=== PATIENT | female | born 1985 | race Caucasian/White ===

== ENCOUNTER 2017-06-24 22:30 | Outpatient (CLI) | payer MEDICAID, SELFPAY ==
[2017-06-24 22:44] VITALS: BMI 31.4
[2017-06-24 22:50] LABS: Microscopic, Urine URINE MICROSCOPIC (MICROSCOPIC)
[2017-06-24 22:55] LABS: Appearance,Urine SL CLOUDY (Clear); Bilirubin,Urine Negative (Negative); Blood, Urine Negative (Negative); Color,Urine YELLOW (Yellow); Glucose,Urine (UA) TRACE (Negative); Ketones,Urine TRACE (Negative); Leukocyte Esterase,Urine Negative (Negative); Nitrate,Urine Negative (Negative); Protein,Urine 1+ (Negative); Specific Gravity, Urine >= 1.030 (1.005-1.030); Urobilinogen,Urine 0.2 EU/dl (0.2)
[2017-06-24 22:58] VITALS: BP 133/73; PULSE 130; RESP 103; TEMP 36.7; O2SAT 97; BMI 31.4
[2017-06-24 23:07] LABS: Amorphous Sediment,Urine 1+ /lpf; Mucus,Urine 4+ /lpf; Squamous Epithelial Cell,Urine 20-50 #/hpf (0-5)
[2017-06-24 23:20] LABS: Amphetamine/Metha Screen,Urine Negative ng/mL (<1000); Barbiturates Screen,Urine Negative ng/mL (<200); Benzodiazepines Screen,Urine Negative ng/mL (200); Cannabinoid Screen,Urine Positive ng/mL (<50); Cocaine Screen,Urine Negative ng/g (<300); Methadone Screen,Urine Negative ng/mL (<300); Opiate Screen,Urine Negative ng/mL (<300); Phencyclidine Screen,Urine Negative ng/mL (<25)
== END 2017-06-24 23:49 | disposition home or self-care (01) ==
LOC: OBOUT 22:32 → OB 22:32
PROVIDERS: PCP Obstetrics & Gynecology; Visit Provider Obstetrics & Gynecology
DX: O26.92 Pregnancy related conditions, unspecified, second trimester (principal); Z3A.25 25 weeks gestation of pregnancy; M54.5 Low back pain
CPT/HCPCS: 59025; 80305; 81001

== ENCOUNTER 2017-09-08 02:19 | Outpatient (CLI) | payer SELFPAY ==
[2017-09-08 02:29] VITALS: BMI 31.3
[2017-09-08 02:33] VITALS: BMI 31.2
[2017-09-08 02:34] VITALS: BP 118/71; PULSE 103; RESP 18; TEMP 37.1; O2SAT 98; BMI 31.2
[2017-09-08 02:38] LABS: Microscopic, Urine URINE MICROSCOPIC (MICROSCOPIC)
[2017-09-08 02:40] LABS: Appearance,Urine CLEAR (Clear); Bilirubin,Urine Negative (Negative); Blood, Urine TRACE-I (Negative); Color,Urine YELLOW (Yellow); Glucose,Urine (UA) Negative (Negative); Ketones,Urine Negative (Negative); Leukocyte Esterase,Urine Negative (Negative); Nitrate,Urine Negative (Negative); Protein,Urine Negative (Negative); Specific Gravity, Urine 1.015 (1.005-1.030); Urobilinogen,Urine 0.2 EU/dl (0.2)
[2017-09-08 02:44] LABS: RBC,Urine Occasional #/hpf (0-3)
[2017-09-08 02:47] LABS: Amphetamine/Metha Screen,Urine Negative ng/mL (<1000); Barbiturates Screen,Urine Negative ng/mL (<200); Benzodiazepines Screen,Urine Negative ng/mL (200); Cannabinoid Screen,Urine Negative ng/mL (<50); Cocaine Screen,Urine Negative ng/g (<300); Methadone Screen,Urine Negative ng/mL (<300); Opiate Screen,Urine Negative ng/mL (<300); Phencyclidine Screen,Urine Negative ng/mL (<25)
== END 2017-09-08 03:25 | disposition home or self-care (01) ==
LOC: OBOUT 02:22 → OB 02:27
PROVIDERS: Visit Provider Obstetrics & Gynecology
DX: O26.893 Other specified pregnancy related conditions, third trimester (principal); Z3A.36 36 weeks gestation of pregnancy; R10.84 Generalized abdominal pain
CPT/HCPCS: 59025; 80305; 81001

== ENCOUNTER 2017-09-11 18:37 | Observation (INO) ==
[2017-09-11 19:04] VITALS: BP 135/75
[2017-09-11 19:25] LABS: Microscopic, Urine URINE MICROSCOPIC (MICROSCOPIC)
[2017-09-11 19:26] LABS: Appearance,Urine CLEAR (Clear); Bilirubin,Urine Negative (Negative); Blood, Urine Negative (Negative); Color,Urine YELLOW (Yellow); Glucose,Urine (UA) Negative (Negative); Ketones,Urine 3+ (Negative); Leukocyte Esterase,Urine Negative (Negative); Protein,Urine Negative (Negative); Urobilinogen,Urine 0.2 EU/dl (0.2)
[2017-09-11 19:32] LABS: Bacteria,Urine 1+ /lpf; RBC,Urine Occasional #/hpf (0-3)
[2017-09-11 20:17] LABS: Amphetamine/Metha Screen,Urine Negative ng/mL (<1000); Barbiturates Screen,Urine Negative ng/mL (<200); Benzodiazepines Screen,Urine Negative ng/mL (200); Cannabinoid Screen,Urine Negative ng/mL (<50); Cocaine Screen,Urine Negative ng/g (<300); Methadone Screen,Urine Negative ng/mL (<300); Opiate Screen,Urine Negative ng/mL (<300); Phencyclidine Screen,Urine Negative ng/mL (<25)
[2017-09-12 00:09] LABS: Basophils % 0.1 % (0.1-2.0); Eosinophils # 0.1 K/mm3 (0.0-0.4); Eosinophils % 0.4 % (0.1-12.0); Hematocrit 33.6 % (37.0-47.0); Hemoglobin 11.4 g/dL (12.2-16.2); Lymphocytes # 2.9 K/mm3 (0.7-4.5); Lymphocytes % 19.5 K/mm3 (10-50); Mean Corpuscular HGB Conc 33.8 g/dL (31.8-35.4); Mean Corpuscular Hemoglobin 30.3 pg (27.0-31.2); Mean Corpuscular Volume 89.5 fl (81-99); Mean Platelet Volume 11.5 fl (7.4-10.4); Monocytes # 0.6 K/mm3 (0.1-1.0); Neutrophils # 11.2 K/mm3 (1.8-7.8); Neutrophils % 75.9 % (37.0-80.0); Platelet Count 241 K/mm3 (142-424); Red Blood Count 3.76 M/mm3 (4.20-5.40); Red Cell Distribution Width 13.7 % (11.5-17.5); White Blood Count 14.8 K/mm3 (4.8-10.8)
[2017-09-12 10:47] LABS: Basophils % 0.2 % (0.1-2.0); Eosinophils # 0.2 K/mm3 (0.0-0.4); Eosinophils % 1.3 % (0.1-12.0); Hematocrit 33.7 % (37.0-47.0); Hemoglobin 11.1 g/dL (12.2-16.2); Lymphocytes # 2.5 K/mm3 (0.7-4.5); Lymphocytes % 20.3 K/mm3 (10-50); Mean Corpuscular HGB Conc 33.1 g/dL (31.8-35.4); Mean Corpuscular Hemoglobin 29.9 pg (27.0-31.2); Mean Corpuscular Volume 90.3 fl (81-99); Mean Platelet Volume 10.7 fl (7.4-10.4); Monocytes # 0.6 K/mm3 (0.1-1.0); Monocytes % 5.1 % (1.7-9.3); Neutrophils % 73.1 % (37.0-80.0); Platelet Count 253 K/mm3 (142-424); Red Blood Count 3.73 M/mm3 (4.20-5.40); Red Cell Distribution Width 13.9 % (11.5-17.5); White Blood Count 12.3 K/mm3 (4.8-10.8)
[2017-09-13 06:38] LABS: Hepatitis B Surface Antigen Negative (Negative)
[2017-09-13 06:39] LABS: HIV Screen 4th Generation wRfx Non Reactive (Non Reactive)
[2017-09-14 06:10] LABS: Rapid Plasma Reagin Ab Titer Non Reactive (NonRea<1:1)
== END 2017-09-12 10:25 | disposition home or self-care (01) ==
LOC: OB 18:37 → OBOUT 18:37 → OB 18:41
PROVIDERS: ADMIT Obstetrics & Gynecology; ATTEND Obstetrics & Gynecology
CPT/HCPCS: 36415; 59025; 80048; 80305; 81001; 85025; 86592; 86703; 86762; 86850; 87340; 87380; 96360; 96361; 96372; G0378; G0432; J0595

== ENCOUNTER 2017-09-21 10:17 | Outpatient (CLI) | payer MEDICAID, SELFPAY ==
[2017-09-21 10:35] VITALS: BP 125/77; PULSE 88; RESP 18; TEMP 36.7; O2SAT 100; BMI 31.2
[2017-09-21 11:23] LABS: Microscopic, Urine URINE MICROSCOPIC (MICROSCOPIC)
[2017-09-21 11:24] LABS: Appearance,Urine CLEAR (Clear); Bilirubin,Urine Negative (Negative); Blood, Urine Negative (Negative); Color,Urine YELLOW (Yellow); Glucose,Urine (UA) Negative (Negative); Ketones,Urine TRACE (Negative); Leukocyte Esterase,Urine Negative (Negative); Nitrate,Urine Negative (Negative); Protein,Urine Negative (Negative); Urobilinogen,Urine 0.2 EU/dl (0.2)
[2017-09-21 11:31] LABS: Amphetamine/Metha Screen,Urine Negative ng/mL (<1000); Barbiturates Screen,Urine Positive ng/mL (<200); Benzodiazepines Screen,Urine Negative ng/mL (200); Cannabinoid Screen,Urine Negative ng/mL (<50); Cocaine Screen,Urine Negative ng/g (<300); Methadone Screen,Urine Negative ng/mL (<300); Opiate Screen,Urine Negative ng/mL (<300); Phencyclidine Screen,Urine Negative ng/mL (<25)
[2017-09-21 11:35] LABS: Bacteria,Urine Trace /lpf; Squamous Epithelial Cell,Urine 20-50 #/hpf (0-5)
== END 2017-09-21 11:50 | disposition home or self-care (01) ==
LOC: OBOUT 10:19 → OB 10:20
PROVIDERS: Visit Provider Obstetrics & Gynecology
DX: O26.93 Pregnancy related conditions, unspecified, third trimester (principal); Z3A.37 37 weeks gestation of pregnancy; G43.909 Migraine, unspecified, not intractable, without status migrainosus; R03.0 Elevated blood-pressure reading, without diagnosis of hypertension
CPT/HCPCS: 59025; 80305; 81001

== ENCOUNTER 2017-09-23 19:12 | Outpatient (CLI) | payer MEDICAID, SELFPAY ==
[2017-09-23 19:20] VITALS: BMI 31.2
[2017-09-23 19:28] LABS: Microscopic, Urine URINE MICROSCOPIC (MICROSCOPIC)
[2017-09-23 19:29] LABS: Appearance,Urine CLEAR (Clear); Bilirubin,Urine Negative (Negative); Blood, Urine Negative (Negative); Color,Urine YELLOW (Yellow); Glucose,Urine (UA) Negative (Negative); Ketones,Urine Negative (Negative); Leukocyte Esterase,Urine Negative (Negative); Nitrate,Urine Negative (Negative); Protein,Urine Negative (Negative); Specific Gravity, Urine 1.015 (1.005-1.030); Urobilinogen,Urine 0.2 EU/dl (0.2)
[2017-09-23 19:33] VITALS: BP 149/83; PULSE 95; RESP 18; TEMP 36.7; O2SAT 98; BMI 31.2
[2017-09-23 19:33] LABS: Squamous Epithelial Cell,Urine 20-50 #/hpf (0-5); WBC,Urine Occasional #/hpf (0-3)
[2017-09-23 20:07] LABS: Amphetamine/Metha Screen,Urine Negative ng/mL (<1000); Barbiturates Screen,Urine Positive ng/mL (<200); Benzodiazepines Screen,Urine Negative ng/mL (200); Cannabinoid Screen,Urine Negative ng/mL (<50); Cocaine Screen,Urine Negative ng/g (<300); Methadone Screen,Urine Negative ng/mL (<300); Opiate Screen,Urine Negative ng/mL (<300); Phencyclidine Screen,Urine Negative ng/mL (<25)
== END 2017-09-23 20:50 | disposition home or self-care (01) ==
LOC: OBOUT 19:14 → OB 19:15
PROVIDERS: PCP Obstetrics & Gynecology; Visit Provider Nurse Practitioner Obstetrics & Gynecology
DX: Z34.90 Encounter for supervision of normal pregnancy, unspecified, unspecified trimester (principal)
CPT/HCPCS: 59025; 80305; 81001

== ENCOUNTER 2017-09-26 13:09 | Outpatient (CLI) | payer MEDICAID, SELFPAY ==
[2017-09-26 13:26] VITALS: BP 128/90; PULSE 94; RESP 18; TEMP 36.5; O2SAT 98; BMI 28.6; BMI 31.3
[2017-09-26 13:33] LABS: Microscopic, Urine URINE MICROSCOPIC (MICROSCOPIC)
[2017-09-26 13:35] LABS: Appearance,Urine CLOUDY (Clear); Bilirubin,Urine Negative (Negative); Blood, Urine Negative (Negative); Color,Urine YELLOW (Yellow); Glucose,Urine (UA) Negative (Negative); Ketones,Urine Negative (Negative); Leukocyte Esterase,Urine TRACE (Negative); Nitrate,Urine Negative (Negative); Protein,Urine Negative (Negative); Specific Gravity, Urine 1.015 (1.005-1.030); Urobilinogen,Urine 0.2 EU/dl (0.2)
[2017-09-26 13:44] LABS: Bacteria,Urine 4+ /lpf; Mucus,Urine 1+ /lpf
== END 2017-09-26 14:32 | disposition home or self-care (01) ==
LOC: OBOUT 13:10 → OB 13:11
PROVIDERS: Nurse Practitioner Obstetrics & Gynecology; Visit Provider Obstetrics & Gynecology
DX: O26.93 Pregnancy related conditions, unspecified, third trimester (principal); Z3A.38 38 weeks gestation of pregnancy
CPT/HCPCS: 59025; 81001; 87086; 96360; 96367

== ENCOUNTER 2017-09-27 11:55 | Inpatient (IN) ==
[2017-09-27 13:32] LABS: Basophils % 0.3 % (0.1-2.0); Eosinophils # 0.2 K/mm3 (0.0-0.4); Eosinophils % 1.4 % (0.1-12.0); Hematocrit 39.9 % (37.0-47.0); Hemoglobin 13.2 g/dL (12.2-16.2); Lymphocytes # 2.8 K/mm3 (0.7-4.5); Lymphocytes % 22.8 K/mm3 (10-50); Mean Corpuscular HGB Conc 33.2 g/dL (31.8-35.4); Mean Corpuscular Hemoglobin 29.8 pg (27.0-31.2); Mean Corpuscular Volume 89.9 fl (81-99); Mean Platelet Volume 11.1 fl (7.4-10.4); Monocytes # 0.6 K/mm3 (0.1-1.0); Monocytes % 4.7 % (1.7-9.3); Neutrophils # 8.6 K/mm3 (1.8-7.8); Neutrophils % 70.9 % (37.0-80.0); Platelet Count 250 K/mm3 (142-424); Red Blood Count 4.43 M/mm3 (4.20-5.40); Red Cell Distribution Width 13.3 % (11.5-17.5); White Blood Count 12.1 K/mm3 (4.8-10.8)
[2017-09-27 13:43] LABS: Microscopic, Urine URINE MICROSCOPIC (MICROSCOPIC)
[2017-09-27 13:44] VITALS: BP 129/69
[2017-09-27 13:46] LABS: Appearance,Urine CLEAR (Clear); Bilirubin,Urine Negative (Negative); Blood, Urine Negative (Negative); Color,Urine YELLOW (Yellow); Glucose,Urine (UA) Negative (Negative); Ketones,Urine Negative (Negative); Leukocyte Esterase,Urine Negative (Negative); Protein,Urine Negative (Negative); Urobilinogen,Urine 0.2 EU/dl (0.2)
[2017-09-27 14:01] LABS: Amphetamine/Metha Screen,Urine Negative ng/mL (<1000); Barbiturates Screen,Urine Positive ng/mL (<200); Benzodiazepines Screen,Urine Negative ng/mL (200); Cannabinoid Screen,Urine Negative ng/mL (<50); Cocaine Screen,Urine Negative ng/g (<300); Methadone Screen,Urine Negative ng/mL (<300); Opiate Screen,Urine Negative ng/mL (<300); Phencyclidine Screen,Urine Negative ng/mL (<25)
[2017-09-27 14:05] LABS: Bacteria,Urine Trace /lpf
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
--- NOTE | 2017-09-27 22:47 | Progress Note ---
[facility] Anesthesia Checklist - Patient Identification Patient Identification: Arm Band - Structural Data Admitted From: Inpatient Planned Operative Procedure/s: labor epidural Consent for Planned Operative Procedure(s) Verified: Yes Verified Documents: History and Physical - NPO Status Verified Time NPO: 00:00 - Additional verifications Anesthesia Reactions: No - Airway Assessment C-Spine Mobility Assessed: Yes (mp2) TMJ Mobility Assessed: Yes Dentition: Good Dentition - Neurological Assessment Level of Consciousness: Awake, Alert - Anesthesia Plan Anesthesia Risk discussed: Yes Anesthesia Plan: Verified ASA Class: II Anesthesia Type: Epidural [facility] Anesthesia HX I have reviewed the patient's past medical history: Yes Medical History: Reports:: Anxiety, Depression, Heart Murmur, Hypertension, Migraine Denies:: MRSA, Seizures Other Medical History: Reports: Arthritis Other Surgeries: Yes: Cholecystectomy. No: Amputation: No Fractures: No *Family Hx:: No significant family history, Cancer, Diabetes, Heart Attack, Tuberculosis, Stroke, Kidney Disease, Hypertension, Hyperlipidemia
--- NOTE | 2017-09-27 23:16 | Procedure Note ---
- Delivery Note Delivery Date:: 09/27/17 Delivery Time:: 23:09 Anesthesia Type: Epidural Was labor medically induced?: Yes Induction method: per pitocin protocol Gestational age (weeks): 38 delivered prior to 39 weeks?: Yes Justification for early elective delivery:: Gestational Hypertension Gender: Male at 1 minute: 9 at 5 minutes: 9 Delivery Procedure:: Normal spontaneous vaginal delivery over intact perineum of vigorous liveborn male infant, direct OA position. No nuchal cord or shoulder dystocia noted at delivery. with spontaneous cry and apgars 9 & 9 (at 1 & 5 minutes); spontaneous void of urine from infant noted shortly after delivery. Nursing staff immediate assessment of and placed skin to skin with mother. Placenta spontaneously delivered and noted intact. No perineal, labial, vaginal or cervical lacerations. EBL: 200cc Mom/baby stable to recovery. Placental Delivery Description: Spontaneous
[2017-09-28 06:02] LABS: Hematocrit 31.8 % (37.0-47.0)
[2017-09-28 06:14] LABS: Hemoglobin 10.5 g/dL (12.2-16.2)
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
== END 2017-09-29 15:55 | disposition home or self-care (01) ==
LOC: OBOUT 11:55 → OB 11:56
PROVIDERS: ADMIT Obstetrics & Gynecology; ATTEND Obstetrics & Gynecology

== ENCOUNTER → 2018-08-02 14:04 | Outpatient (CLI) | payer MEDICAID, SELFPAY ==
[2018-08-02 14:46] LABS: Basophils # 0.1 K/mm3 (0-0.2); Basophils % 0.5 % (0.1-2.0); Eosinophils # 0.1 K/mm3 (0.0-0.4); Hematocrit 43.2 % (37.0-47.0); Hemoglobin 14.9 g/dL (12.2-16.2); Lymphocytes # 4.1 K/mm3 (0.7-4.5); Lymphocytes % 34.7 % (10-50); Mean Corpuscular HGB Conc 34.5 g/dL (31.8-35.4); Mean Corpuscular Hemoglobin 30.6 pg (27.0-31.2); Mean Corpuscular Volume 88.7 fl (81-99); Mean Platelet Volume 9.4 fl (7.4-10.4); Monocytes # 0.6 K/mm3 (0.1-1.0); Monocytes % 4.6 % (1.7-9.3); Neutrophils # 7.1 K/mm3 (1.8-7.8); Neutrophils % 59.2 % (37.0-80.0); Platelet Count 334 K/mm3 (142-424); Red Blood Count 4.87 M/mm3 (4.20-5.40); Red Cell Distribution Width 12.8 % (11.5-17.5); White Blood Count 11.9 K/mm3 (4.8-10.8)
[2018-08-02 16:31] LABS: Alanine Aminotransferase 33 U/L (12-78); Albumin Level 4.6 gm/dL (3.4-5.0); Albumin/Globulin Ratio 1.2 (1.1-1.8); Alkaline Phosphatase 107 U/L (46-116); Anion Gap 17.7 mEq/L (5-15); Aspartate Amino Transferase 11 U/L (15-37); Bilirubin,Total 0.3 mg/dL (0.2-1.0); Blood Urea Nitrogen 8 mg/dL (7-18); Calcium 9.6 mg/dL (8.5-10.1); Carbon Dioxide 22 mmol/L (21.0-32.0); Chloride 101 mmol/L (98-107); Chol/HDL Ratio 6.5 (1-3.5); Cholesterol 253 mg/dL (140-200); Creatinine,Serum 0.79 mg/dL (0.55-1.02); Estimated Glomerular Filt Rate 85 ml/min (>60); GFR (African American) 103 ML/MIN (>60); Globulin 3.8 gm/dl (1.3-3.2); Glucose 92 mg/dL (74-106); HDL Cholesterol 39 mg/dL (29-89); LDL Cholesterol 184 mg/dL (0-130); Potassium 3.7 mmoL/L (3.5-5.1); Sodium 137 mmol/L (136-145); T4 (Thyroxine) 9.9 ug/dl (4.7-13.3); Thyroid Stimulating Hormone 3.36 uIU/ml (0.358-3.740); Total Protein,Serum 8.4 gm/dL (6.4-8.2); Triglycerides 150 mg/dL (30-200); VLDL Cholesterol 30 mg/dL (0-40)
[2018-08-04 19:08] LABS: Vitamin D 25 Hydroxy 21.3 ng/mL (30.0-100.0)
== END ==
PROVIDERS: Visit Provider Nurse Practitioner Family
DX: F31.9 Bipolar disorder, unspecified (principal); Z76.89 Persons encountering health services in other specified circumstances; E55.9 Vitamin D deficiency, unspecified
CPT/HCPCS: 80053; 80061; 82652; 84436; 84443; 85025

== ENCOUNTER → 2018-08-10 12:17 | Outpatient (CLI) | payer MEDICAID, SELFPAY ==
[2018-08-10 13:39] LABS: Basophils # 0.1 K/mm3 (0-0.2); Basophils % 0.5 % (0.1-2.0); Eosinophils # 0.2 K/mm3 (0.0-0.4); Eosinophils % 1.5 % (0.1-12.0); HCG,Quantitative 879 mIU/mL; Hematocrit 44.1 % (37.0-47.0); Hemoglobin 15.4 g/dL (12.2-16.2); Lymphocytes # 4.3 K/mm3 (0.7-4.5); Lymphocytes % 34.9 % (10-50); Mean Corpuscular HGB Conc 34.9 g/dL (31.8-35.4); Mean Corpuscular Hemoglobin 31.2 pg (27.0-31.2); Mean Corpuscular Volume 89.4 fl (81-99); Mean Platelet Volume 8.9 fl (7.4-10.4); Monocytes # 0.4 K/mm3 (0.1-1.0); Neutrophils # 7.4 K/mm3 (1.8-7.8); Platelet Count 412 K/mm3 (142-424); Red Blood Count 4.93 M/mm3 (4.20-5.40); Red Cell Distribution Width 12.7 % (11.5-17.5); White Blood Count 12.4 K/mm3 (4.8-10.8)
[2018-08-11 06:44] LABS: Hepatitis B Surface Antigen Negative (Negative); Hepatitis C Antibody <0.1 s/co ratio (0.0-0.9)
[2018-08-11 08:22] LABS: HIV Screen 4th Generation wRfx Non Reactive (Non Reactive)
[2018-08-11 12:41] LABS: Rapid Plasma Reagin Ab Titer Non Reactive (NonRea<1:1)
== END ==
PROVIDERS: Visit Provider Obstetrics & Gynecology
DX: Z34.90 Encounter for supervision of normal pregnancy, unspecified, unspecified trimester (principal)
CPT/HCPCS: 36415; 84702; 85025; 86592; 86703; 86762; 86850; 87340; 87380; G0432

== ENCOUNTER → 2018-08-13 13:36 | Outpatient (CLI) | payer MEDICAID, SELFPAY ==
[2018-08-13 15:32] LABS: HCG,Quantitative 2772 mIU/mL
== END ==
PROVIDERS: Visit Provider Obstetrics & Gynecology
DX: Z34.90 Encounter for supervision of normal pregnancy, unspecified, unspecified trimester (principal)
CPT/HCPCS: 36415; 84702

== ENCOUNTER 2018-09-21 13:43 | Emergency (ER) | payer MEDICAID, SELFPAY ==
[2018-09-21 13:45] VITALS: BP 116/78; PULSE 112; RESP 20; TEMP 36.8; O2SAT 100; BMI 35.6
--- NOTE | 2018-09-21 14:11 | HMH.EDUTC ---
[facility] [place] Clinical Impression: Allergic rhinitis Qualifiers: Allergic rhinitis trigger: unspecified Allergic rhinitis seasonality: seasonal Qualified Code(s): J30.2 - Other seasonal allergic rhinitis Hypertension Qualifiers: Hypertension type: essential hypertension Qualified Code(s): I10 - Essential (primary) hypertension Qualifiers: Weeks of gestation: 10 weeks Qualified Code(s): Z3A.10 - 10 weeks gestation of Disposition: Home, Self-Care Condition on Discharge: Good Instructions: DI for Allergic Rhinitis Prescriptions: Loratadine [Claritin] 10 mg PO DAILY #30 tab Fluticasone Propionate [Flonase Allergy Relief NS] 1 spray NS BID 10 Days #1 bot Referrals: Ronny Trejo MD [Primary Care Provider] - Time of Disposition: 14:19 Medical Decision Making - Rtace Inquiry Pt receiving controlled substance: No Vital Signs: 09/21/18 13:45 Temperature 98.2 F Temperature Source Oral Pulse Rate [Left Radial] 112 H Respiratory Rate 20 Blood Pressure [Right Arm] 116/78 Blood Pressure Mean [Right Arm] 90 Blood Pressure Source [Right Arm] Automatic Cuff Blood Pressure Position [Right Arm] Sitting 02 Sat by Pulse Oximetry 100 Oxygen Delivery Method Room Air [facility] [place] - General Stated complaint: headache runny nose Time Seen by Provider: 09/21/18 14:12 Mode of Arrival: Ambulatory Source of Information: Patient Limitations: No Limitations Description of Symptoms (Recalled from Triage Doc. by RN): HEADACHE, NASAL ISSUES, SORE THROAT, NAUSEA HEENT Symptoms (Recalled from RN notes): Yes Resp Symptoms (Recalled from RN notes): No Skin Symptoms (Recalled from RN notes): No MS Symptoms (Recalled from RN notes): No Functional Status (Recalled from RN notes): WNL - History of Present Illness Provider Complaint: Headache, runny nose, itchy eyes, sore throat X several days. 10 weeks and h/o HTN, so unsure what she is allowed to take. Fever last night but took Tylenol. Onset (ago): day(s) (3) Relieving factors: none Exacerbating factors: none Associated symptoms: denies other symptoms Treatments prior to arrival: none - Related Data Home Medications Medication Instructions Recorded Confirmed Buspirone HCl [Buspar 10mg tablet] 10 mg PO BID 09/04/18 09/04/18 Labetalol HCl 100 mg PO BID 09/04/18 09/04/18 Promethazine HCl [Phenergan 12.5mg 12.5 mg PO Q6H PRN 09/04/18 09/04/18 tablet] Previous Rx's Medication Instructions Recorded vitamin with calcium 1 tab PO DAILY #30 tab 09/12/18 no.72-iron 27 mg-folic acid 1 mg tablet Fluticasone Propionate [Flonase 1 spray NS BID 10 Days #1 bot 09/21/18 Allergy Relief NS] Loratadine [Claritin] 10 mg PO DAILY #30 tab 09/21/18 Allergies Allergy/AdvReac Type Severity Reaction Status Date / Time hydrocodone [HYDROCODONE] Allergy Unknown SOB Verified 09/20/18 13:22 - Worker's Comp Is this a Worker's Comp case?: No [facility] History - Hepatitis A Screen Drug use history?: No High risk sexual behaviors?: No History of sexually transmitted infection?: No Currently employed?: No Childcare worker?: No Do you have indoor plumbing?: Yes Do you have electricity?: Yes Attestation statement:: This patient has been screened for Hepatitis A risk factors. I have reviewed the patient's past medical history: Yes Medical History: Reports:: Anxiety, Depression, Heart Murmur, Hypertension, Migraine Denies:: Diabetes Mellitus Type 1, Diabetes Mellitus Type 2, MRSA, Seizures Other Medical History: Reports: Arthritis Comment: PTSD Other Surgeries: Yes: Cholecystectomy. 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
--- NOTE | 2018-09-21 14:17 | ED_ITS ---
[facility] [place] Disposition Clinical Impression: Allergic rhinitis Qualifiers: Allergic rhinitis trigger: unspecified Allergic rhinitis seasonality: seasonal Qualified Code(s): J30.2 - Other seasonal allergic rhinitis Hypertension Qualifiers: Hypertension type: essential hypertension Qualified Code(s): I10 - Essential (primary) hypertension Qualifiers: Weeks of gestation: 10 weeks Qualified Code(s): Z3A.10 - 10 weeks gestation of Disposition: Home, Self-Care Condition on Discharge: Good Instructions: DI for Allergic Rhinitis Prescriptions: Loratadine [Claritin] 10 mg PO DAILY #30 tab Fluticasone Propionate [Flonase Allergy Relief NS] 1 spray NS BID 10 Days #1 bot Referrals: Ronny Trejo MD [Primary Care Provider] - Time of Disposition: 14:19 Medical Decision Making - Trace Inquiry Pt receiving controlled substance: No Vital Signs: 09/21/18 13:45 Temperature 98.2 F Temperature Source Oral Pulse Rate [Left Radial] 112 H Respiratory Rate 20 Blood Pressure [Right Arm] 116/78 Blood Pressure Mean [Right Arm] 90 Blood Pressure Source [Right Arm] Automatic Cuff Blood Pressure Position [Right Arm] Sitting 02 Sat by Pulse Oximetry 100 Oxygen Delivery Method Room Air [facility] [place] HPI - General Stated complaint: headache runny nose Time Seen by Provider: 09/21/18 14:12 Mode of Arrival: Ambulatory Source of Information: Patient Limitations: No Limitations Description of Symptoms (Recalled from Triage Doc. by RN): HEADACHE, NASAL ISSUES, SORE THROAT, NAUSEA HEENT Symptoms (Recalled from RN notes): Yes Resp Symptoms (Recalled from RN notes): No Skin Symptoms (Recalled from RN notes): No MS Symptoms (Recalled from RN notes): No Functional Status (Recalled from RN notes): WNL - History of Present Illness Provider Complaint: Headache, runny nose, itchy eyes, sore throat X several days. 10 weeks and h/o HTN, so unsure what she is allowed to take. Fever last night but took Tylenol. Onset (ago): day(s) (3) Relieving factors: none Exacerbating factors: none Associated symptoms: denies other symptoms Treatments prior to arrival: none - Related Data Home Medications Medication Instructions Recorded Confirmed Buspirone HCl [Buspar 10mg tablet] 10 mg PO BID 09/04/18 09/04/18 Labetalol HCl 100 mg PO BID 09/04/18 09/04/18 Promethazine HCl [Phenergan 12.5mg 12.5 mg PO Q6H PRN 09/04/18 09/04/18 tablet] Previous Rx's Medication Instructions Recorded vitamin with calcium 1 tab PO DAILY #30 tab 09/12/18 no.72-iron 27 mg-folic acid 1 mg tablet Fluticasone Propionate [Flonase 1 spray NS BID 10 Days #1 bot 09/21/18 Allergy Relief NS] Loratadine [Claritin] 10 mg PO DAILY #30 tab 09/21/18 Allergies Allergy/AdvReac Type Severity Reaction Status Date / Time hydrocodone [HYDROCODONE] Allergy Unknown SOB Verified 09/20/18 13:22 - Worker's Comp Is this a Worker's Comp case?: No [facility] History - Hepatitis A Screen Drug use history?: No High risk sexual behaviors?: No History of sexually transmitted infection?: No Currently employed?: No Childcare worker?: No Do you have
[2018-09-21 14:44] VITALS: BP 116/78; PULSE 112; RESP 20; TEMP 36.8; O2SAT 100
== END 2018-09-21 14:44 | disposition home or self-care (01) ==
PROVIDERS: Emergency Provider Physician Assistant; PCP Emergency Medicine
DX: J30.2 Other seasonal allergic rhinitis (principal); I10 Essential (primary) hypertension; Z3A.10 10 weeks gestation of pregnancy; F41.8 Other specified anxiety disorders; F17.210 Nicotine dependence, cigarettes, uncomplicated; Z88.5 Allergy status to narcotic agent
CPT/HCPCS: 99201

== ENCOUNTER → 2018-09-24 12:39 | Outpatient (CLI) | payer MEDICAID, SELFPAY ==
--- NOTE | 2018-09-24 12:42 | US_ITS ---
US OB transvaginal CLINICAL INDICATION: ITS.REASON: US OB Dates ORDERING PHYSICIAN: Ashwini Miguel MD PATIENT AGE: 32 years Comparison: 09/04/2018 FINDINGS: There is a single live injury or gestation with a crown-rump length of 4.46 cm correlating to gestational age of 11 weeks 3 days. Yolk sac is present. The placenta is anterior. No previa apparent. heart and body motion noted. heart rate is 1 63 bpm. The adnexa are unremarkable. There is some questionable heterogeneous echogenicity in the fundus of the uterus. IMPRESSION: Live intrauterine gestation at 11 weeks 3 days as described above. No obvious previa. Mild heterogeneous echogenicity in the fundus of uterus of questioned significance.
== END ==
PROVIDERS: PCP Emergency Medicine; Visit Provider Obstetrics & Gynecology
DX: O26.841 Uterine size-date discrepancy, first trimester (principal)
CPT/HCPCS: 76817

== ENCOUNTER → 2018-10-31 13:17 | Outpatient (CLI) | payer MEDICAID, SELFPAY ==
[2018-10-31 16:49] LABS: Total Protein,Urine Random 10.8 mg/dL (0.0-11.9)
[2018-10-31 17:59] LABS: Total Protein 24 Hour,Urine 216 mg/24 hr (40-90); Total Volume,Urine 2000 mL (600-1600)
== END ==
PROVIDERS: Visit Provider Obstetrics & Gynecology
DX: Z34.90 Encounter for supervision of normal pregnancy, unspecified, unspecified trimester (principal)
CPT/HCPCS: 84155

== ENCOUNTER → 2018-11-26 12:43 | Outpatient (CLI) | payer MEDICAID, SELFPAY ==
--- NOTE | 2018-11-26 12:47 | US_ITS ---
US OB /maternal detail: INDICATION: ITS.REASON: US OB Complete ORDERING PHYSICIAN: Ashwini Miguel MD PATIENT AGE: 32 years TECHNIQUE: ultrasound transabdominal scanning. COMPARISON: No previous relevant studies. FINDINGS: Single viable intrauterine gestation. Breech position. Placenta: Anterior placenta grade 1. There is average amount fluid. The cervix appears satisfactory. Closed and measuring 5 cm in length. Complete survey performed and was unremarkable on the submitted images as in PACS. No discrete anomalies identified on survey imaging by technologist. Active fetus. Three-vessel cord with satisfactory umbilical cord insertion. 4- chamber heart noted. Survey of brain & ventricles unremarkable. Face and neck survey unremarkable. Diaphragm and chest views unremarkable. Abdomen: Both kidneys noted and unremarkable. Stomach noted and satisfactory. Spine: Survey of the spine satisfactory with no anomalies identified nor imaged. Both arms and legs noted. Amniotic Fluid: Adequate. Maternal adnexa: No significant findings. Measurements: Average ultrasound age 20w3d. Gestational Age 20w3d. Estimated due date by ultrasound age 1204/12/2019. Estimated weight 333 grams. BPD = 20w6d OFD = 21w4d HC = 20w4d AC = 20w5d FL = 19w3d Growth Percentile= 29 percent Heart Rate = 142 Cerebellum = 20w0d Humerus = HC/AC is 1.17 (1.09-1.26). CI is 75% (70-86%). FL/BPD is 62% . FL/AC is 20%. IMPRESSION: There is a single live fetus which is in breech presentation with an average ultrasound age of 20 weeks and 3 days. heart body motion noted with no obvious anomalies. All parameters correlate. Please see above for detail.
== END ==
PROVIDERS: PCP Emergency Medicine; Visit Provider Obstetrics & Gynecology
DX: Z36.0 Encounter for antenatal screening for chromosomal anomalies (principal)
CPT/HCPCS: 76811

== ENCOUNTER → 2019-01-04 08:20 | Outpatient (CLI) | payer MEDICAID, SELFPAY ==
[2019-01-04 09:41] LABS: Glucose,Fasting 89 mg/dL (60-105)
[2019-01-04 11:16] LABS: Glucose 1 Hour 132 mg/dL (74-106)
== END ==
PROVIDERS: Visit Provider Obstetrics & Gynecology
DX: Z34.90 Encounter for supervision of normal pregnancy, unspecified, unspecified trimester (principal)
CPT/HCPCS: 36415; 82951

== ENCOUNTER 2019-02-04 17:41 | Outpatient (CLI) | payer MEDICAID, SELFPAY ==
[2019-02-04 17:52] VITALS: BP 138/74; PULSE 89; RESP 18; TEMP 36.7; O2SAT 98; BMI 36.2
[2019-02-04 18:01] LABS: Microscopic, Urine URINE MICROSCOPIC (MICROSCOPIC)
[2019-02-04 18:04] LABS: Appearance,Urine CLEAR (Clear); Bilirubin,Urine Negative (Negative); Blood, Urine Negative (Negative); Color,Urine YELLOW (Yellow); Glucose,Urine (UA) Negative (Negative); Ketones,Urine Negative (Negative); Leukocyte Esterase,Urine Negative (Negative); Nitrate,Urine Negative (Negative); Protein,Urine Negative (Negative); Urobilinogen,Urine 0.2 EU/dl (0.2)
[2019-02-04 18:15] LABS: Amphetamine/Metha Screen,Urine Negative ng/mL (<1000); Barbiturates Screen,Urine Negative ng/mL (<200); Benzodiazepines Screen,Urine Negative ng/mL (<200); Cannabinoid Screen,Urine Negative ng/mL (<50); Cocaine Screen,Urine Negative ng/mL (<300); Methadone Screen,Urine Negative ng/mL (<300); Opiate Screen,Urine Negative ng/mL (<300); Phencyclidine Screen,Urine Negative ng/mL (<25)
[2019-02-04 18:23] LABS: RBC,Urine Occasional #/hpf (0-3)
== END 2019-02-04 18:20 | disposition home or self-care (01) ==
LOC: OBOUT 17:45 → OB 17:46
PROVIDERS: PCP Obstetrics & Gynecology; Visit Provider Nurse Practitioner Obstetrics & Gynecology
DX: O36.8130 Decreased fetal movements, third trimester, not applicable or unspecified (principal); Z3A.30 30 weeks gestation of pregnancy
CPT/HCPCS: 59025; 80305; 81001

== ENCOUNTER 2019-02-13 11:23 | Outpatient (CLI) | payer MEDICAID, SELFPAY ==
[2019-02-13 11:35] VITALS: BMI 36.0
[2019-02-13 11:41] VITALS: BP 140/83; PULSE 95; RESP 18; TEMP 36.7; O2SAT 97; BMI 36.0
[2019-02-13 11:51] LABS: Microscopic, Urine URINE MICROSCOPIC (MICROSCOPIC)
[2019-02-13 11:55] LABS: Appearance,Urine CLEAR (Clear); Bilirubin,Urine Negative (Negative); Blood, Urine Negative (Negative); Color,Urine YELLOW (Yellow); Glucose,Urine (UA) Negative (Negative); Ketones,Urine Negative (Negative); Leukocyte Esterase,Urine TRACE (Negative); Nitrate,Urine Negative (Negative); Protein,Urine 1+ (Negative); Specific Gravity, Urine 1.025 (1.005-1.030); Urobilinogen,Urine 0.2 EU/dl (0.2)
[2019-02-13 12:10] LABS: Bacteria,Urine Trace /lpf; Squamous Epithelial Cell,Urine Occasional #/hpf (0-5); WBC,Urine Occasional #/hpf (0-3)
[2019-02-13 12:12] LABS: Fetal Membrane Rupture (Rapid) Negative (Negative)
[2019-02-13 12:14] LABS: Amphetamine/Metha Screen,Urine Negative ng/mL (<1000); Barbiturates Screen,Urine Negative ng/mL (<200); Benzodiazepines Screen,Urine Negative ng/mL (<200); Cannabinoid Screen,Urine Negative ng/mL (<50); Cocaine Screen,Urine Negative ng/mL (<300); Methadone Screen,Urine Negative ng/mL (<300); Opiate Screen,Urine Negative ng/mL (<300); Phencyclidine Screen,Urine Negative ng/mL (<25)
== END 2019-02-13 13:10 | disposition home or self-care (01) ==
LOC: OBOUT 11:25 → OB 11:27
PROVIDERS: PCP Physician Assistant; Visit Provider Obstetrics & Gynecology
DX: O21.2 Late vomiting of pregnancy (principal); Z3A.31 31 weeks gestation of pregnancy
CPT/HCPCS: 59025; 80305; 81001; 84112

== ENCOUNTER 2019-02-19 21:29 | Outpatient (CLI) | payer MEDICAID, SELFPAY ==
[2019-02-19 21:39] VITALS: BMI 34.2
[2019-02-19 22:06] LABS: Microscopic, Urine URINE MICROSCOPIC (MICROSCOPIC)
[2019-02-19 22:12] LABS: Appearance,Urine CLEAR (Clear); Bilirubin,Urine Negative (Negative); Blood, Urine Negative (Negative); Color,Urine YELLOW (Yellow); Glucose,Urine (UA) Negative (Negative); Ketones,Urine Negative (Negative); Leukocyte Esterase,Urine Negative (Negative); Nitrate,Urine Negative (Negative); PH,Urine 6.5 (5.0-8.5); Protein,Urine Negative (Negative); Specific Gravity, Urine <= 1.005 (1.005-1.030); Urobilinogen,Urine 0.2 EU/dl (0.2)
[2019-02-19 22:22] LABS: Amphetamine/Metha Screen,Urine Negative ng/mL (<1000); Barbiturates Screen,Urine Negative ng/mL (<200); Benzodiazepines Screen,Urine Negative ng/mL (<200); Cannabinoid Screen,Urine Negative ng/mL (<50); Cocaine Screen,Urine Negative ng/mL (<300); Methadone Screen,Urine Negative ng/mL (<300); Opiate Screen,Urine Negative ng/mL (<300); Phencyclidine Screen,Urine Negative ng/mL (<25)
[2019-02-19 22:29] LABS: Bacteria,Urine Trace /lpf; WBC,Urine Occasional #/hpf (0-3)
[2019-02-19 22:36] VITALS: BP 137/79; PULSE 98; RESP 16; TEMP 36.7; O2SAT 97; BMI 34.2
[2019-02-19 23:20] LABS: Fetal Fibronectin (Rapid) Negative (Negative)
== END 2019-02-19 23:58 | disposition home or self-care (01) ==
LOC: OBOUT 21:31 → OB 21:32
PROVIDERS: PCP Obstetrics & Gynecology; Visit Provider Nurse Practitioner Obstetrics & Gynecology
DX: O26.893 Other specified pregnancy related conditions, third trimester (principal); Z3A.32 32 weeks gestation of pregnancy; R11.2 Nausea with vomiting, unspecified
CPT/HCPCS: 59025; 80305; 81001; 82731; 87275; 87276; 96360; 96367; 96372

== ENCOUNTER → 2019-03-01 14:07 | Outpatient (CLI) | payer MEDICAID, SELFPAY ==
--- NOTE | 2019-03-01 14:09 | US_ITS ---
PROCEDURE: US OB FOLLOW UP CLINICAL INDICATION: US OB- Growth FRANKY- LGA COMPARISON: OBFEMAT US OB /maternal detail from 11/26/2018 FINDINGS: There is a single live fetus which is in cephalic presentation. heart and body motion noted within FHR of 128 beats per minute. Average ultrasound age is 34 weeks 1 day. Cervix is closed at 3 cm in length. Placenta is anterior and grade 2. No previa or abruption. BPD 34 weeks 6 days, OFD 35 weeks 4 days, HC 34 weeks 5 days, AC 34 weeks 0 days, FL 32 weeks 4 days. All parameters correlate. FRANKY is 10 cm. Estimated weight is 2243 g which is 37th percentile IMPRESSION: Live IUP at by 34 weeks 1 day with an estimated weight 2243 g which is 37th percentile with an FRANKY of 10 cm Dictated by: Demarco Baca MD 03/01/2019 18:01 Electronically signed by Demarco Baca MD in [place] 03/01/2019 18:01
== END ==
PROVIDERS: PCP Emergency Medicine; Visit Provider Obstetrics & Gynecology
DX: O36.60X0 Maternal care for excessive fetal growth, unspecified trimester, not applicable or unspecified (principal)
CPT/HCPCS: 76816

== ENCOUNTER 2019-03-05 18:04 | Outpatient (CLI) | payer MEDICAID, SELFPAY ==
[2019-03-05 18:31] VITALS: BP 126/82; PULSE 106; RESP 18; TEMP 36.8; O2SAT 99; BMI 34.2
[2019-03-05 19:05] LABS: Microscopic, Urine URINE MICROSCOPIC (MICROSCOPIC)
[2019-03-05 19:08] LABS: Appearance,Urine CLEAR (Clear); Bilirubin,Urine Negative (Negative); Blood, Urine Negative (Negative); Color,Urine YELLOW (Yellow); Glucose,Urine (UA) Negative (Negative); Ketones,Urine Negative (Negative); Leukocyte Esterase,Urine TRACE (Negative); Nitrate,Urine Negative (Negative); PH,Urine 6.5 (5.0-8.5); Protein,Urine Negative (Negative); Specific Gravity, Urine <= 1.005 (1.005-1.030); Urobilinogen,Urine 0.2 EU/dl (0.2)
[2019-03-05 19:19] LABS: Amphetamine/Metha Screen,Urine Negative ng/mL (<1000); Barbiturates Screen,Urine Negative ng/mL (<200); Benzodiazepines Screen,Urine Negative ng/mL (<200); Cannabinoid Screen,Urine Negative ng/mL (<50); Cocaine Screen,Urine Negative ng/mL (<300); Methadone Screen,Urine Negative ng/mL (<300); Opiate Screen,Urine Negative ng/mL (<300); Phencyclidine Screen,Urine Negative ng/mL (<25)
[2019-03-05 19:46] LABS: Bacteria,Urine Trace /lpf
== END 2019-03-05 22:00 | disposition home or self-care (01) ==
LOC: OBOUT 18:08 → OB 18:08
PROVIDERS: PCP Obstetrics & Gynecology; Visit Provider Obstetrics & Gynecology
DX: O47.03 False labor before 37 completed weeks of gestation, third trimester (principal); Z3A.34 34 weeks gestation of pregnancy
CPT/HCPCS: 59025; 80305; 81001; 96360

== ENCOUNTER 2019-03-06 11:44 | Observation (INO) ==
--- NOTE | 2019-03-07 08:28 | Discharge Summary ---
General - General Admission date:: 03/06/19 Discharge date: 03/06/19 HPI HPI: She is a 33-year-old 5 para 3 aborta 1 who was 34 and 4 weeks gestational age. She was having contractions and was seen in the office and as a result of that was admitted to labor and delivery. Hospital Course Hospital Course: She was admitted to labor and delivery and she had received steroids. She was due for her second steroid shot on the evening of 06 March 2019. She was receiving nifedipine 20 mg every 6 hours and she had received 1 dose of Brethine. She was found to be 3 cm dilated. She continued to have contractions and was offered another dose of Brethine but refused this. She then refused all further medications except for her steroids. Since she was only 34 weeks gestational age we explained to her that we could not deliver her here at that age and offered her transfer to . As result of that she is being transferred to to the care of Dr. Fani Julian. Her cervix has not changed. She was having contractions about every 5 minutes. Objective no acute distress DS: Diagnosis - Discharge Diagnosis (1) labor Status: Acute Discharge Plan - Patient Discharge Instructions ACTIVITY: Limited activity DIET: continue same diet Additional Instructions: TRANSFERRED TO PER MD ORDER. Patient Instructions: Antepartum Care Forms: Transfer Record - Follow up Plan Disposition: Xfer Short-Term Hosp Home Medications: Home Medications Medication Instructions Recorded Confirmed Type vitamin with calcium 1 tab PO DAILY #30 tab 09/12/18 03/06/19 Rx no.72-iron 27 mg-folic acid 1 mg tablet promethazine 12.5 mg tablet 12.5 mg PO Q6H PRN #30 tab 10/03/18 03/06/19 Rx Esomeprazole Magnesium [Nexium 20 mg PO DAILY 02/19/19 03/06/19 History 24HR] Lurasidone HCl [Latuda] 20 mg PO DAILY 02/19/19 03/06/19 History RX: Buspirone HCl [Buspar 10mg 20 mg PO BID 02/19/19 03/06/19 History tablet] RX: Fexofenadine HCl 60 mg PO BID 02/19/19 03/06/19 History RX: Fluoxetine HCl [Prozac] 20 mg PO DAILY 02/19/19 03/06/19 History RX: Labetalol HCl See Rx Instructions .ROUTE .COMPLEX 11/05/19 11/20/19 History Prescriptions/Medication Reconciliation: No Action vitamin with calcium no.72-iron 27 mg-folic acid 1 mg tablet 1 tab PO DAILY #30 tab promethazine 12.5 mg tablet 12.5 mg PO Q6H PRN #30 tab PRN Reason: Nausea RX: Fexofenadine HCl 60 mg PO BID Esomeprazole Magnesium [Nexium 24HR] 20 mg PO DAILY RX: Buspirone HCl [Buspar 10mg tablet] 20 mg PO BID RX: Labetalol HCl See Rx Instructions .ROUTE .COMPLEX RX: Fluoxetine HCl [Prozac] 20 mg PO DAILY Lurasidone HCl [Latuda] 20 mg PO DAILY - Problem Reconciliation Problems Reviewed?: Yes
--- OUTSIDE RECORDS SUMMARY | 2019-03-07 15:21 | External Medical Summary | Continuity of Care Document ---
:1985 Author Organization [facility] Address [address] [place] [address] Phone Care Team Providers Name Role Phone Asif Waylon Primary Care Provider Lamont Attending Provider Kishore Trejo Primary Care Provider Maritza Marley Attending Provider Steve Attending Provider Lamont Primary Care Provider Kristen Primary Care Provider Allergies, Adverse Reactions, Alerts Allergen Type Severity Reaction Last Verified Status Updated hydrocodone Allergy Unknown SOB Yes Active Medications Medication Status Dose Units Route Sig Qty Days Start End Instruct ions Date Date Promethazine Active 12.5 MG Oral Q6H 14 October Hcl 2018 11:21am Pnv,Calcium Active 1 TAB Oral Daily September 12, 72/Iron/Folic 2019 Acid 8:59am Buspirone Hcl Active 20 MG Oral Twice February a 2018 10:34pm Esomeprazole Active 20 MG Oral Daily February 10:34pm Fexofenadine Active 60 MG Oral Twice November Hcl a day 2018 10:34pm Fluoxetine Hcl Active 20 MG Oral Daily February 19, 2019 10:34pm Labetalol Hcl Active 0 TABLET .COMPL November TAKE 1 TABLET EX 2018 BY MOUTH 10:34pm TWICE DAILY FOR HIGH BLOOD PRESSURE Lurasidone Hcl Active 20 MG Oral Daily February 19, 2019 10:34pm Problems Active Problems Medical Problem Onset Date Status 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 Bipolar 1 disorder, mixed, moderate Acti ve Serous otitis media Active labor Active Upper respiratory infection Active Hypertension during Active Active Mild tetrahydrocannabinol (THC) abuse Ac tive Tobacco abuse disorder Active Pelvic pain affecting Active Sterilization consult Active LGSIL on Pap smear of cervix Active GERD (gastroesophageal reflux disease) A ctive History of sexually transmitted disease Active Allergic rhinitis Active Hypertension Active Inactive/Resolved Problems Medical Problem Onset Date Status Gestational hypertension Resolved Resolved Resolved Trichomonal vaginitis during Resolved Pelvic pain affecting Resolved Smoking (tobacco) complicating Resolved , third trimester Insufficient care Resolved Normal vaginal delivery Resolved Procedures Procedure Date Performed Status US OB follow up March 01, 2019 completed Group A Streptococcus Screen December 15, 2018 completed (BECKY) Relevant Diagnostic Tests and/or Laboratory Data Laboratory Results Test Date/Time Result Interpretation Reference Result Perfo rming Range Comment Site Urine Color December Yellow 2018 10:31am POC Urine Maryam Negative Marijuana (THC) 2018 10:32am Urine Color January Yellow 2018 9:54am POC Urine October Negative Marijuana (THC) 2018 9:54am Urine Color February 11:06am Urine Color February Ginger 2018 11:37am Urine Appearance December Clear 2018 10:31am POC Urine Cocaine Maryam Negative 2018 10:32am Urine Appearance January Clear 2018 9:54am POC Urine Cocaine October Negative 2018 9:54am Urine Appearance February Clear 2018 11:06am Urine Appearance February Clear 2018 11:37am Urine Glucose December Negative (UA) 2018 10:31am POC Urine Maryam Negative Morphine 2018 10:32am Urine Glucose January Negative (UA) 2018 9:54am POC Urine October Negative Morphine 2018 9:54am Urine Glucose November Negative (UA) 2018 11:06am Urine Glucose November Negative (UA) 2018 11:37am Urine Bilirubin Maryam negative 2018 10:31am POC Urine Maryam Negative Amphetamine 2018 10:32am POC Urine October Negative Amphetamine 2018 9:54am Urine Bilirubin October negative 2018 9:54am Urine Bilirubin November negative 2018 11:06am Urine Bilirubin November negative 2018 11:37am Urine Ketones Maryam Negative 2018 mg/dL 10:31am POC Urine Maryam Negative Methamphetamine 2018 10:32am POC Urine October Negative Methamphetamine 2018 9:54am Urine Ketones October Negative 2018 mg/dL 9:54am Urine Ketones November Negative 2018 mg/dL 11:06am Urine Ketones November Large 80 2018 mg/dL 11:37am Urine Protein December Negative 2018 10:31am POC Urine Maryam Negative Barbiturates 2018 10:32am POC Urine October Negative Barbiturates 2018 9:54am Urine Protein October 30+ 2018 9:54am Urine Protein November Negative 2018 11:06am Urine Protein November 100++ 2018 11:37am Urine pH Maryam 6.0 2018 10:31am POC Urine Maryam Negative Benzodiazepine 2018 10:32am POC Urine October Negative Benzodiazepine 2018 9:54am Urine pH October 6.0 2018 9:54am Urine pH November 7.0 2018 11:06am Urine pH November 6.5 2018 11:37am Urine Blood Maryam negative 2018 10:31am POC Urine MDMA Maryam Negative 2018 10:32am Urine Blood October negative 2018 9:54am POC Urine MDMA October Negative 2018 9:54am Urine Blood November negative 2018 11:06am Urine Blood November nonhemolyzed 2018 trace 11:37am Urine Specific Maryam 1.010 [place] 2018 10:31am POC Urine Maryam Negative Methadone 2018 10:32am Urine Specific October 1.030 [place] 2018 9:54am POC Urine October Negative Methadone 2018 9:54am Urine Specific November 1.015 [place] 2018 11:06am Urine Specific November 1.020 [place] 2018 11:37am Urine Maryam 0.2 Urobilinogen 2018 Dipstick 10:31am POC Urine Maryam Negative Oxycodone 2018 10:32am Urine October 0.2 Urobilinogen 2018 Dipstick 9:54am POC Urine October Negative Oxycodone 2018 9:54am Urine November 0.2 Urobilinogen 2018 Dipstick 11:06am Urine November 0.2 Urobilinogen 2018 Dipstick 11:37am Urine Nitrate Maryam Negative 2018 10:31am POC Urine Maryam Negative Phencyclidine 2018 10:32am POC Urine October Negative Phencyclidine 2018 9:54am Urine Nitrate October Negative 2018 9:54am Urine Nitrate November Negative 2018 11:06am Urine Nitrate November Negative 2018 11:37am Urine Leukocyte Maryam Negative Esterase 2018 10:31am POC Urine Maryam Negative Buprenorphine 2018 10:32am POC Urine October Negative Buprenorphine 2018 9:54am Urine Leukocyte October Trace Esterase 2018 9:54am Urine Leukocyte November Trace Esterase 2018 11:06am Urine Leukocyte November Trace Esterase 2018 11:37am Urine Color January Yellow Yellow [facility], [address] [place] [address] 2018 [place] [address] 11:42am Urine Color February Yellow Yellow [facility], [address] [place] [address] 36 2018 [place] [address] 6:15pm Urine Appearance January Clear Clear [facility], [address] [place] [address] 2018 [place] [address] 11:42am Urine Appearance February Clear Clear [facility], [address] [place] [address] 36 2018 [place] [address] 6:15pm Urine pH January 6.0 5.0-8.5 [facility], [address] [place] [address] 36 E 2018 [place] [address] 11:42am Urine pH February 6.5 5.0-8.5 [facility], [address] [place] [address] 36 E 2018 [place] [address] 6:15pm Urine Specific October 1.025 1.005-1.03 [facility], [address] [place] [address] 36 E [place] 2018 0 [place] [address] 11:42am Urine Specific November <= 1.005 1.005-1.03 [facility], [address] [place] [address] 36 E [place] 2018 0 [place] [address] 6:15pm Urine Protein October 1+ Negative [facility], [address] [place] [address] 36 E 2018 [place] [address] 11:42am Urine Protein November Negative Negative [facility], [address] [place] [address] 36 E 2018 [place] [address] 6:15pm Urine Glucose October Negative Negative [facility], [address] [place] [address] 36 E (UA) 2018 [place] [address] 11:42am Urine Glucose November Negative Negative [facility], [address] [place] [address] 36 E (UA) 2018 [place] [address] 6:15pm Urine Ketones October Negative Negative [facility], [address] [place] [address] 36 E 2018 [place] [address] 11:42am Urine Ketones November Negative Negative [facility], [address] [place] [address] 36 E 2018 [place] [address] 6:15pm Urine Blood October Negative Negative [facility], [address] [place] [address] 36 E 2018 [place] [address] 11:42am Urine Blood November Negative Negative [facility], [address] [place] [address] 36 E 2018 [place] [address] 6:15pm Urine Nitrate October Negative Negative [facility], [address] [place] [address] 36 E 2018 [place] [address] 11:42am Urine Nitrate November Negative Negative [facility], [address] [place] [address] 36 E 2018 [place] [address] 6:15pm Urine Bilirubin October Negative Negative [facility], [address] [place] [address] 36 E 2018 [place] [address] 11:42am Urine Bilirubin November Negative Negative [facility], [address] [place] [address] 36 E 2018 [place] [address] 6:15pm Urine October 0.2 EU/dl [facility], [address] [place] [address] 36 E Urobilinogen 2018 [place] [address] 11:42am Urine November 0.2 EU/dl [facility], [address] [place] [address] E Urobilinogen 2018 [place] [address] 6:15pm Urine Leukocyte October Trace Negative [facility], [address] [place] [address] E Esterase 2018 [place] [address] 11:42am Urine Leukocyte November Trace Negative [facility], [address] [place] [address] E Esterase 2018 [place] [address] 6:15pm Urine RBC January None #/hpf [facility], [address] [place] [address] 36 E 2018 [place] [address] 11:42am Urine WBC October Occasional [facility], [address] [place] [address] 36 E 2018 #/[place] [address] 11:42am Urine WBC November 3-5 #/hpf [facility], [address] [place] [address] 36 E 2018 [place] [address] 6:15pm Urine Squamous January Occasional [facility], [address] [place] [address] E Epithelial Cells 2018 #/[place] [address] 11:42am Urine Squamous November -10 #/hpf [facility], [address] [place] [address] E Epithelial Cells 2018 [place] [address] 6:15pm Urine Bacteria October Trace /lpf NONE [facility], [address] [place] [address] E 2018 [place] [address] 11:42am Urine Bacteria November Trace /lpf NONE [facility], [address] [place] [address] E 2018 [place] [address] 6:15pm Fasting Glucose December 89 mg/dL 60-105 [facility], [address] [place] [address] 36 E 2018 [place] [address] 8:22am Glucose 1 Hour December 132 mg/dL 74-106 [facility], [address] [place] [address] 36 E 2018 [place] [address] 8:22am Urine Fasting Maryam Negative [facility], [address] [place] [address] E Glucose 2018 mg/dL [place] [address] 8:22am Urine Glucose 1 December Negative [facility], [address] [place] [address] 36 E Hour 2018 mg/dL [place] [address] 8:22am Influenza Type A November Negative Negative [facility], [address] [place] [address] E Antigen 2018 [place] [address] 11:20pm Influenza Type B Morea Negative Negative [facility], [address] [place] [address] E Antigen 2018 [place] [address] 11:20pm Group A Morea Negative Negative [facility], [address] [place] [address] E Streptococcus 2018 [place] [address] Rapid 11:20pm Membranes October Negative Negative [facility], [address] [place] [address] E Rupture (PAMG-1) 2018 [place] [address] 11:42am Urine Opiates October Negative [facility], [address] [place] [address] E Screen 2018 ng/[place] [address] 11:42am Urine Opiates November Negative [facility], [address] [place] [address] E Screen 2018 ng/[place] [address] 6:15pm Urine Barbituates October Negative [facility], [address] [place] [address] E Screen 2018 ng/[place] [address] 11:42am Urine Barbituates November Negative [facility], [address] [place] [address] E Screen 2018 ng/[place] [address] 6:15pm Urine October Negative [facility], [address] [place] [address] E Phencyclidine 2018 ng/[place] [address] Screen 11:42am Urine November Negative [facility], [address] [place] [address] E Phencyclidine 2018 ng/[place] [address] Screen 6:15pm Urine October Negative [facility], [address] [place] [address] E Amphetamines 2018 ng/[place] [address] Screen 11:42am Urine November Negative [facility], [address] [place] [address] E Amphetamines 2018 ng/[place] [address] Screen 6:15pm Urine Methadone October Negative [facility], [address] [place] [address] E Screen 2018 ng/[place] [address] 11:42am Urine Methadone November Negative [facility], [address] [place] [address] E Screen 2018 ng/[place] [address] 6:15pm Urine October Negative [facility], [address] [facility] 36 E Benzodiazepines 2018 ng/[place] [address] Screen 11:42am Urine November Negative [facility], [address] [place] [address] 36 E Benzodiazepines 2018 ng/[place] [address] Screen 6:15pm Urine Cocaine October Negative [facility], [address] [place] [address] E Screen 2018 ng/[place] [address] 11:42am Urine Cocaine November Negative [facility], [facility] 36 E Screen 2018 ng/[place] [address] 6:15pm Urine Marijuana January Negative [facility], [address] [place] [address] E (THC) Screen 2018 ng/[place] [address] 11:42am Urine Marijuana February Negative [facility], [address] [place] [address] E (THC) Screen 2018 ng/[place] [address] 6:15pm Microbiology Results Procedure Source Result Collection Result Result Performin g Date/Time Date/Time Comment Site Group A Throat Negative December 15December [facility], [facility] 36 E Streptococcus for Group A 2018 11:20pm 2018 [place] [address] Screen (BECKY) Streptococc 11:16am us. Diagnostic Imaging Reports Report Dictated Date/Time Dictated By Status Radiology Report March 01, 2019 Demarco Baca MD completed 2:27pm [address] [place] [address] Ultrasoun d Report Sig orlin Patient: Serenity Connors MR#: [id number] : 1985 Acct:[id number] Age/Sex: 33 / F ADM Date: 9 Loc: RAD Attending Dr: Ashwini Miguel MD Ordering Physician: Ashwini Miguel MD Date of Service: 03/01/19 Procedure(s): US OB follow up Accession Number(s): [id number] cc: Demarco Baca MD; Ronny Trejo MD~ PROCEDURE: US OB FOLLOW UP CLINICAL INDICATION: US OB- Growth A FI- LGA COMPARISON: OBFEMAT US OB /matern al detail from 11/26/2018 FINDINGS: There is a single live fetus which is i n cephalic presentation. heart and body motion noted withi n FHR of 128 beats per minute. Average ultrasound age is 34 weeks 1 d ay. Cervix is closed at 3 cm in length. Placenta is anterior and gr shannon 2. No previa or abruption. BPD 34 weeks 6 days, OFD 35 weeks 4 day s, HC 34 weeks 5 days, AC 34 weeks 0 days, FL 32 weeks 4 days. All parameters correlate. FRANKY is 10 cm. Estimated weight is 2243 g which is 37th percentile IMPRESSION: Live IUP at by 34 weeks 1 day with an e stimated weight 2243 g which is 37th percentile with an FRANKY of 10 cm Dictated by: Demarco Baca MD 03/01/2019 18:01 Electronically signed by Demarco Baca in OV 03/01/2019 18:01 Health Concerns Concerns ANTEPARTUM KICK COUNTS ANTEPARTUM CARE. TRANSFERRED TO PER Srikanth Younger ORDER Advance Directives Advance Directive Response Recorded Date/Time Does the patient have an No March 06, 2019 12:17pm advanced directive on file? Living Will No March 06, 2019 12:17pm Does the patient have an No February 24, 2019 12:52pm advanced directive on file? Living Will No February 24, 2019 12:52pm Chief Complaint and Reason for Visit Chief Complaint Sore throat [facility] (follow up ) LAB WORK [facility] (follow up ) NST Due 1229 Pain NST 31 weeks NST Due 1228 V&D for 4 day s growth & franky / lga Nst Due 04/13 contractions OB F/U NST Encounters Encounter Location(s) Arrival/Admit Date Discharge/Depart Date Provider(s) Departed [facility] Physician December 15, 2018 December 16, 2018 nery good [facility]-Emergency 10:57pm 1:01am Room Departed [facility] Physician December 28December 28, 2018 Jorge Miguel Physician/[facility]-Women's 2019 9:38am 10:23am tuan [facility] Visit Departed [facility] Physician December 28December 28, 2018 Jorge Salas Physician/[facility]-Behavioral 2018 1:17pm 2:42pm ANGEL Marley tuan Office Health Clinic Visit Registered [facility] Physician January 04, Ashwini Miguel Clinical Group-Laboratory 2018 8:20am Departed [facility] Physician January 25, 2019 January 25, 2019 Gisel Miguel Physician/[facility]-Women's 9:42am 10:28am tuan Office [facility] Visit Departed [facility] Physician January 25, 2019 January 25, 2019 Gisel Salas Physician/[facility]-Behavioral 10:38am 1:55pm ANGEL Marley tuan Office Health Clinic Visit Registered [facility] Physician February 04, 2019 February 04, 2019 [facility] 5:41pm 6:20pm MD Adelaida [place] Departed [facility] Physician February 13, 2019 February 13, 2019 Gisel Miguel Clinical Group-OB 11:23am 1:10pm Outpatient Service Departed [facility] Physician February 15, 2019 February 15, 2019 Gisel Miguel Physician/[facility]Women[facility] 10:33am 11:21am [facility]uan [facility] Visit Registered [facility] Physician February 19, 2019 February 19, 2019 [facility] 9:29pm 11:58pm MD Adelaida [place] Registered [facility] Physician March 01, Ashwini Miguel Clinical Group-Radiology 2018 2:07pm Departed [facility] Physician March 05, March 05, 2019 Ashwini Miguel Clinical Group-OB 2018 6:04pm 10:00pm Outpatient Service Departed [facility] Physician March 06, March 06, 2019 Ashwini Miguel , Physician/[facility]-Women's 2019 10:13am 11:33am tuan [facility] Visit Discharged [facility] Physician March 06, March 06, 2019 Ashwini Miguel Inpatient Group-Obstetric 2019 11:49am 9:52pm Registered [facility] Physician March 07, Ashwini Miguel , Inpatient Group- 2019 3:17pm MD Assessments See care plan goalsSee care plan goals Functional Status Observation Response Date Recorded Ambulation Ability Independent March 06, 2019 9:50pm Ambulation Ability Independent February 13, 2019 1 :10pm Functional status ambulatory January 25, 2019 1 0:29am Functional status ambulatory March 06, 2019 12:17pm Functional status ambulatory February 24, 2019 12:52pm Functional status ambulatory January 25, 2019 1 1:37am Oral Care Ability Independent January 25, 2019 1 1:37am Bathing Ability Independent January 25, 2019 1 1:37am Eating (Feeding) Ability Independent January 25 019 11:37am Toileting Ability Independent January 25, 2019 1 1:37am Ambulation Ability Independent January 25, 2019 1 1:37am Functional status ambulatory January 07, 2019 1:42pm Functional status ambulatory December 28, 2018 2:01pm Oral Care Ability Independent December 28, 2018 2:01pm Bathing Ability Independent December 28, 2018 2:01pm Eating (Feeding) Ability Independent December 28, 2018 2:01pm Toileting Ability Independent December 28, 2018 2:01pm Ambulation Ability Independent December 28, 2018 2:01pm Goals Acute Goals Nursing Diagnosis: Knowledge Deficit D isease/Condition Goal(s): Education of di sease process Instruction(s): Follow provider p daisy/instructions (See attached discharge education) Follow/up with primary care provider as instructed in discharge packet Nursing Diagnosis: Knowledge Deficit D isease/Condition Goal(s): Education of di sease process Instruction(s): Follow provider p daisy/instructions (See attached discharge education) Follow/up with primary care provider as instructed in discharge packet Ambulatory Goals Pt. verbalized understanding of disease process/healthy behavior/Pt. to follow plan of care/education provided Immunizations Immunization Event Date Not Given Dose Client Solutions Director Lot Vac cine Reason Number Number Informatio n Statement (VIS) Deta il Fluvirin January 30, 2013 Fluzone Quad March 6mo+ 2014 Fluzone Quad February 6mo+ 2016 Pneumococcal December 07, Polysacc. 2018 Vaccine, 23 valent Influenza, January unspecified 2012 formulation Mental Status Observation Response Date Recorded Able to Read Yes March 06, 2019 12:14pm Able to Write Yes March 06, 2019 12:14pm Able to Read Yes March 05, 2019 6:31pm Able to Write Yes March 05, 2019 6:31pm Able to Read Yes February 13, 2019 1 1:41am Able to Write Yes February 13, 2019 1 1:41am Medical Equipment No Medical Equipment Information available Insurance Providers Guarantor Serenity Connors Address [address] [phone] Contact Info. Home Phone: Payer Policy Id Coverage Id Subscriber's Subscriber Id Effective E xpiration Name Date Date Self Pay Self N/A [facility] [id number] Serenity Morrow [id number] Health [facility] Connors [facility] [place] of Treatment Follow up as ordered by primary care provider Follow up as ordered by primary care provider Continue labetolol 100 BID Ultrasound for growth and FRANKY 34 wks RTO 3 wks Sent to L&D for admission for observation Alicja q 2-3 minutes on NST in office Will start scheduled procardia and give second dose of brethine tonight PTL precautions, kick counts Continue labetalol Ultrasound for growth and FRANKY scheduled Tobacco cessation RTO 2 wks GCT 24-28 wks RTO 4 wks Future Tests Future scheduled test information is unavailable Pending Tests Pending diagnostic test information is unavailable Future Visits Future appointment information is unavailable Referrals to Other Providers Reason for Referral Start Provider Provider Contact Provider Address Referral Date Information Admission to [facility] March [address] Future Procedures Future procedure information is unavailable Future Medications Future medication information is unavailable Patient Instructions DI for Viral Upper Respiratory Infection -- Adult Bipolar Disorder Diet How to Quit Tobacco Products Bipolar Disorder Anxiety Disorders Diet Bipolar Disorder Diet How to Quit Tobacco Products Bipolar Disorder Anxiety Disorders Diet Antepartum Care How to Do Kick Counts Antepartum Care Bipolar Disorder Diet How to Quit Tobacco Products How to Do Kick Counts Antepartum Care False Labor How to Do Kick Counts DI for False Labor Antepartum Care Bipolar Disorder Diet How to Quit Tobacco Products Antepartum Care Social History Observation Status Date of Observation Not January 25, 2019 Assigned Sex Female Vital Signs Vital Reading Result Reference Range Collection Date/ Time Height 162.56 cm December 15 9 11:25pm Weight 81.64 kg December 15 11:25pm Body Temperature 98.5 [degF] 97.6-99.6 December 16, 2018 12:59am Heart Rate 85 /min 60-90 December 16 12:59am Respiratory rate 18 /min -December 16, 2018 12:59am Oxygen saturation by 97 % 95-100 November Pulse oximetry 11:25pm BP Systolic 121 mm[Hg] 110-140 December 16 12:59am BP Diastolic 71 mm[Hg] 60-90 December 16 019 12:59am BMI (Body Mass Index) 30.9 kg/m2 November 11:25pm Height 162.56 cm December 28, 2018 10:10am Weight 95.70 kg December 28, 2018 10:10am BP Systolic 124 mm[Hg] 110-140 December 28, 2018 10:10am BP Diastolic 68 mm[Hg] 60-90 December 28, 2018 10:10am BMI (Body Mass Index) 36.2 kg/m2 December 28, 2018 10:10am Height 162.56 cm December 28, 2018 1:27pm Weight 95.70 kg December 28, 2018 1:27pm Body Temperature 95.7 [degF] 97.6-99.6 December 28, 2018 1:27pm Heart Rate 98 /min 60-90 December 28, 2018 1:27pm Oxygen saturation by 93 % 95-100 December 162018 Pulse oximetry 1:27pm BP Systolic 124 mm[Hg] 110-140 December 28, 2018 1:27pm BP Diastolic 63 mm[Hg] 60-90 December 28, 2018 1:27pm BMI (Body Mass Index) 36.2 kg/m2 December 28, 2018 1:27pm Height 162.56 cm January 25 10:02am Weight 95.25 kg January 25 10:02am BP Systolic 124 mm[Hg] 110-140 January 25 10:02am BP Diastolic 78 mm[Hg] 60-90 January 25 10:02am BMI (Body Mass Index) 36.0 kg/m2 January 252018 10:02am Height 162.56 cm January 25 11:07am Weight 95.25 kg January 25 11:07am Body Temperature 96.6 [degF] 97.6-99.6 January 25 019 11:07am Heart Rate 96 /min 60-90 January 25 11:07am Oxygen saturation by 92 % 95-100 January Pulse oximetry 11:07am BP Systolic 129 mm[Hg] 110-140 January 25 11:07am BP Diastolic 76 mm[Hg] 60-90 January 25 11:07am BMI (Body Mass Index) 36.0 kg/m2 January 252018 11:07am Height 162.56 cm February 04 5:52pm Weight 95.70 kg February 04, 5:52pm Body Temperature 98.0 [degF] 97.6-99.6 February 04, 2 019 5:52pm Heart Rate 89 /min -February 04, 5:52pm Respiratory rate 18 /min -February 04, 2 019 5:52pm Oxygen saturation by 98 % 95-100 January Pulse oximetry 5:52pm BP Systolic 138 mm[Hg] 110-140 February 04, 5:52pm BP Diastolic 74 mm[Hg] 60-February 04, 5:52pm BMI (Body Mass Index) 36.2 kg/m2 February 042018 5:52pm Height 162.56 cm February 13, 11:41am Weight 95.25 kg February 13, 11:41am Body Temperature 98.0 [degF] 97.6-99.6 February 13, 2 019 11:41am Heart Rate 95 /min -February 13, 11:41am Respiratory rate 18 /min 04-09February 13, 2 019 11:41am Oxygen saturation by 97 % 95-100 January Pulse oximetry 11:41am BP Systolic 140 mm[Hg] 110-140 February 13, 11:41am BP Diastolic 83 mm[Hg] 60-90 February 13, 11:41am BMI (Body Mass Index) 36.0 kg/m2 February 132018 11:41am Height 162.56 cm February 15, 10:37am Weight 93.44 kg February 15, 10:37am BP Systolic 118 mm[Hg] 110-140 February 15, 10:37am BP Diastolic 78 mm[Hg] 60-90 February 15, 10:37am BMI (Body Mass Index) 35.3 kg/m2 February 152018 10:37am Height 165.1 cm February 19, 10:36pm Weight 93.44 kg February 19, 10:36pm Body Temperature 98.1 [degF] 97.6-99.6 February 19, 2 019 10:36pm Heart Rate 98 /min -February 19, 10:36pm Respiratory rate 16 /min 04-09February 19, 2 019 10:36pm Oxygen saturation by 97 % 95-100 February Pulse oximetry 10:36pm BP Systolic 137 mm[Hg] 110-140 February 19 10:36pm BP Diastolic 79 mm[Hg] 60-90 February 19 10:36pm BMI (Body Mass Index) 34.2 kg/m2 February 192018 10:36pm Height 165.1 cm March 05, 2 019 6:31pm Weight 93.44 kg March 05, 019 6:31pm Body Temperature 98.2 [degF] 97.6-99.6 March 05, 2019 6:31pm Heart Rate 106 /min -March 05 019 6:31pm Respiratory rate 18 /min -March 05, 2019 6:31pm Oxygen saturation by 99 % 95-100 March 052018 Pulse oximetry 6:31pm BP Systolic 126 mm[Hg] 110-140 March 05, 2 019 6:31pm BP Diastolic 82 mm[Hg] 60-90 March 05, 019 6:31pm BMI (Body Mass Index) 34.2 kg/m2 February 152018 6:31pm Height 165.1 cm March 06, 2 019 10:37am Weight 94.34 kg March 06, 2 019 10:37am BP Systolic 140 mm[Hg] 110-140 March 06, 2 019 10:37am BP Diastolic 72 mm[Hg] 60-90 March 06, 2 019 10:37am BMI (Body Mass Index) 34.6 kg/m2 February 162018 10:37am Height 165.1 cm March 06 019 12:14pm Weight 93.44 kg March 06 019 12:14pm BMI (Body Mass Index) 34.2 kg/m2 February 162018 12:14pm
== END 2019-03-06 21:52 | disposition short-term general hospital (02) ==
LOC: OBOUT 11:44 → OB 11:46 → INTOOBSV 11:49 → OB 11:49
PROVIDERS: ADMIT Obstetrics & Gynecology; ATTEND Obstetrics & Gynecology
CPT/HCPCS: 59025; 80305; 81001; 96360; G0378

== ENCOUNTER 2019-03-17 12:44 | Outpatient (CLI) | payer MEDICAID, SELFPAY ==
[2019-03-17 12:57] VITALS: BMI 34.7
[2019-03-17 12:59] VITALS: BP 134/80; PULSE 104; RESP 20; TEMP 36.4; O2SAT 98; BMI 34.7
[2019-03-17 13:18] LABS: Microscopic, Urine URINE MICROSCOPIC (MICROSCOPIC)
[2019-03-17 13:21] LABS: Appearance,Urine CLOUDY (Clear); Bilirubin,Urine Negative (Negative); Blood, Urine Negative (Negative); Color,Urine YELLOW (Yellow); Glucose,Urine (UA) Negative (Negative); Ketones,Urine TRACE (Negative); Leukocyte Esterase,Urine 1+ (Negative); Nitrate,Urine Negative (Negative); Protein,Urine 1+ (Negative); Specific Gravity, Urine >= 1.030 (1.005-1.030); Urobilinogen,Urine 0.2 EU/dl (0.2)
[2019-03-17 13:26] LABS: Amphetamine/Metha Screen,Urine Negative ng/mL (<1000); Barbiturates Screen,Urine Negative ng/mL (<200); Benzodiazepines Screen,Urine Negative ng/mL (<200); Cannabinoid Screen,Urine Negative ng/mL (<50); Cocaine Screen,Urine Negative ng/mL (<300); Methadone Screen,Urine Negative ng/mL (<300); Opiate Screen,Urine Negative ng/mL (<300); Phencyclidine Screen,Urine Negative ng/mL (<25)
[2019-03-17 13:46] LABS: Amorphous Sediment,Urine 1+ /lpf; Bacteria,Urine 4+ /lpf; Squamous Epithelial Cell,Urine 20-50 #/hpf (0-5)
== END 2019-03-17 14:05 | disposition home or self-care (01) ==
LOC: OBOUT 12:46 → OB 12:56
PROVIDERS: PCP Emergency Medicine; Visit Provider Obstetrics & Gynecology
DX: O47.03 False labor before 37 completed weeks of gestation, third trimester (principal); Z3A.36 36 weeks gestation of pregnancy
CPT/HCPCS: 59025; 80305; 81001; 87086

== ENCOUNTER 2019-03-21 22:30 | Outpatient (CLI) | payer MEDICAID, SELFPAY ==
[2019-03-21 23:00] VITALS: BP 147/75; PULSE 111; RESP 16; TEMP 36.7; O2SAT 96; BMI 34.9
[2019-03-21 23:17] LABS: Microscopic, Urine URINE MICROSCOPIC (MICROSCOPIC)
[2019-03-21 23:25] LABS: Appearance,Urine CLEAR (Clear); Bilirubin,Urine Negative (Negative); Blood, Urine Negative (Negative); Color,Urine YELLOW (Yellow); Glucose,Urine (UA) Negative (Negative); Ketones,Urine Negative (Negative); Leukocyte Esterase,Urine Negative (Negative); Nitrate,Urine Negative (Negative); PH,Urine 6.5 (5.0-8.5); Protein,Urine Negative (Negative); Specific Gravity, Urine <= 1.005 (1.005-1.030); Urobilinogen,Urine 0.2 EU/dl (0.2)
[2019-03-21 23:34] LABS: Amphetamine/Metha Screen,Urine Negative ng/mL (<1000); Barbiturates Screen,Urine Negative ng/mL (<200); Benzodiazepines Screen,Urine Negative ng/mL (<200); Cannabinoid Screen,Urine Negative ng/mL (<50); Cocaine Screen,Urine Negative ng/mL (<300); Methadone Screen,Urine Negative ng/mL (<300); Opiate Screen,Urine Negative ng/mL (<300); Phencyclidine Screen,Urine Negative ng/mL (<25)
[2019-03-21 23:47] LABS: Bacteria,Urine Trace /lpf; WBC,Urine Occasional #/hpf (0-3)
== END 2019-03-22 00:55 | disposition home or self-care (01) ==
LOC: OBOUT 22:33 → OB 22:34
PROVIDERS: PCP Obstetrics & Gynecology; Visit Provider Obstetrics & Gynecology
DX: O47.03 False labor before 37 completed weeks of gestation, third trimester (principal); Z3A.36 36 weeks gestation of pregnancy
CPT/HCPCS: 59025; 80305; 81001

== ENCOUNTER → 2019-03-26 11:14 | Outpatient (CLI) | payer MEDICAID, SELFPAY | PROVIDERS: Visit Provider Obstetrics & Gynecology | DX: Z34.90 Encounter for supervision of normal pregnancy, unspecified, unspecified trimester (principal) | CPT/HCPCS: 86403 ==

== ENCOUNTER 2019-03-27 19:16 | Outpatient (CLI) | payer MEDICAID, SELFPAY ==
[2019-03-27 19:36] VITALS: BP 134/81; PULSE 136; RESP 16; TEMP 36.4; O2SAT 96; BMI 34.9
[2019-03-27 19:46] VITALS: BMI 34.9
[2019-03-27 20:09] LABS: Microscopic, Urine URINE MICROSCOPIC (MICROSCOPIC)
[2019-03-27 20:19] LABS: Appearance,Urine CLEAR (Clear); Bilirubin,Urine Negative (Negative); Blood, Urine Negative (Negative); Color,Urine YELLOW (Yellow); Glucose,Urine (UA) Negative (Negative); Ketones,Urine Negative (Negative); Leukocyte Esterase,Urine 1+ (Negative); Nitrate,Urine Negative (Negative); PH,Urine 6.5 (5.0-8.5); Protein,Urine Negative (Negative); Specific Gravity, Urine <= 1.005 (1.005-1.030); Urobilinogen,Urine 0.2 EU/dl (0.2)
[2019-03-27 20:27] LABS: Amorphous Sediment,Urine Trace /lpf
[2019-03-27 20:30] LABS: Amphetamine/Metha Screen,Urine Negative ng/mL (<1000); Barbiturates Screen,Urine Negative ng/mL (<200); Benzodiazepines Screen,Urine Negative ng/mL (<200); Cannabinoid Screen,Urine Negative ng/mL (<50); Cocaine Screen,Urine Negative ng/mL (<300); Methadone Screen,Urine Negative ng/mL (<300); Opiate Screen,Urine Negative ng/mL (<300); Phencyclidine Screen,Urine Negative ng/mL (<25)
== END 2019-03-27 21:09 | disposition home or self-care (01) ==
LOC: OBOUT 19:18 → OB 19:20
PROVIDERS: PCP Emergency Medicine; Visit Provider Obstetrics & Gynecology
DX: O26.893 Other specified pregnancy related conditions, third trimester (principal); Z3A.37 37 weeks gestation of pregnancy
CPT/HCPCS: 80305; 81001; 87086

== ENCOUNTER 2019-04-01 17:59 | Inpatient (IN) ==
[2019-04-01 18:27] VITALS: BP 133/81
[2019-04-01 19:58] LABS: Microscopic, Urine URINE MICROSCOPIC (MICROSCOPIC)
[2019-04-01 20:02] LABS: Appearance,Urine CLEAR (Clear); Bilirubin,Urine Negative (Negative); Blood, Urine 3+ (Negative); Color,Urine YELLOW (Yellow); Glucose,Urine (UA) 2+ (Negative); Ketones,Urine TRACE (Negative); Leukocyte Esterase,Urine TRACE (Negative); PH,Urine 6.5 (5.0-8.5); Protein,Urine 1+ (Negative); Specific Gravity, Urine 1.025 (1.005-1.030); Urobilinogen,Urine 0.2 EU/dl (0.2)
[2019-04-01 20:09] LABS: Amphetamine/Metha Screen,Urine Negative ng/mL (<1000); Barbiturates Screen,Urine Negative ng/mL (<200); Benzodiazepines Screen,Urine Negative ng/mL (<200); Cannabinoid Screen,Urine Negative ng/mL (<50); Cocaine Screen,Urine Negative ng/mL (<300); Methadone Screen,Urine Negative ng/mL (<300); Opiate Screen,Urine Negative ng/mL (<300); Phencyclidine Screen,Urine Negative ng/mL (<25)
[2019-04-01 20:15] LABS: Bacteria,Urine Trace /lpf
[2019-04-01 20:58] LABS: Basophils % 0.1 % (0.1-2.0); Eosinophils # 0.1 K/mm3 (0.0-0.4); Eosinophils % 0.7 % (0.1-12.0); Hematocrit 33.1 % (37.0-47.0); Hemoglobin 11.3 g/dL (12.2-16.2); Lymphocytes # 2.2 K/mm3 (0.7-4.5); Lymphocytes % 12.3 % (10-50); Mean Corpuscular HGB Conc 34.2 g/dL (31.8-35.4); Mean Corpuscular Volume 90.4 fl (81-99); Mean Platelet Volume 10.3 fl (7.4-10.4); Monocytes # 0.7 K/mm3 (0.1-1.0); Monocytes % 3.8 % (1.7-9.3); Neutrophils # 14.7 K/mm3 (1.8-7.8); Neutrophils % 83.1 % (37.0-80.0); Platelet Count 259 K/mm3 (142-424); Red Blood Count 3.67 M/mm3 (4.20-5.40); Red Cell Distribution Width 13.3 % (11.5-17.5); White Blood Count 17.7 K/mm3 (4.8-10.8)
[2019-04-01 21:28] LABS: Lymphocytes % 11 % (10-50); Monocytes % 3 % (2-9); Neutrophils % 86 % (42-76); RBC Morphology Normal; Total Cells Counted 100
--- NOTE | 2019-04-01 21:33 | Progress Note ---
[facility] Anesthesia Checklist - Patient Identification Patient Identification: Arm Band, Verbal (Name & ) - Structural Data Admitted From: Home Planned Operative Procedure/s: Labor epidural Consent for Planned Operative Procedure(s) Verified: Yes Verified Documents: Surgical Consent, History and Physical - Chart Verification Results Verified: CBC, UA (Urine tox) - Additional verifications Patient : Yes Anesthesia Reactions: No - Airway Assessment C-Spine Mobility Assessed: Yes (MP 2) TMJ Mobility Assessed: Yes Dentition: Poor Dentition (missing teeth, decay present) - Neurological Assessment Level of Consciousness: Awake, Alert, Appropriate, Follows Commands Hx Seizures: No Numbness or tingling in extremities: No - Anesthesia Plan Anesthesia Risk discussed: Yes Anesthesia Plan: Verified ASA Class: III Anesthesia Type: Epidural [facility] History I have reviewed the patient's past medical history: Yes Medical History: Reports:: Anxiety, Depression, Heart Murmur, Hypertension, Migraine Denies:: Diabetes Mellitus Type 1, Diabetes Mellitus Type 2, MRSA, Seizures *Have you ever received a pneumonia vaccine?: No *Have you received a flu vaccine this season?: No Other Medical History: Reports: Arthritis Comment:: PTSD Anesthesia experience/problems:: none Other Surgeries: Yes: Cholecystectomy, Other (facial sx as child). No: C- section Amputation: No Fractures: Yes (NOSE) - *Social History Smoking Status: Current every day smoker Tobacco Type: cigarettes # Packs/Day (cigarettes): 1 Alcohol Intake: never Alcohol Intake Frequency:: holidays/special occasions only Substance Use Type: former substance user, marijuana, painkillers, crack/cocaine *Occupational Status:: unemployed Housing: apartment Household Members: significant other *Travel in the last 8 weeks: None - Psychiatric History Pschychiatric History:: Reports:: Anxiety, Depression Family Hx:: No significant family history, Cancer, Diabetes, Heart Attack, Tuberculosis, Stroke, Kidney Disease, Hypertension, Hyperlipidemia [employer] history: Additional [employer] History Para: 3
--- NOTE | 2019-04-01 23:54 | Progress Note ---
Internal Medicine - PN: Subj *Date: 04/01/19 *Time: 23:52 (This 33-year-old 5, para 3, Ab1 white female, a patient of Dr. Zacarias, was admitted today at approximately 1830 hrs. her history is on the chart and I refer you to that. She has a labor epidural in situ, and it is working well. Her cervix is now 8 cm, completely effaced, with the presenting vertex at 0 station. An amniotomy at this time reveals clear fluid and an internal monitor has been placed. Plan is for vaginal delivery. States that she has signed papers for tubal sterilization procedure.) Exam Vital signs and Labs for Last 24 Hours: Temp Pulse Resp BP Pulse Ox 97.7 F 64 22 133/81 98 04/01/19 18:04 04/01/19 18:04 04/01/19 18:04 04/01/19 18:04 04/01/19 18:04 Laboratory Results - last 24 hr 04/01/19 19:40: Urine Color Yellow, Urine Appearance Clear, Urine pH 6.5, Ur Specific [place] 1.025, Urine Protein 1+, Urine Glucose (UA) 2+, Urine Ketones Trace, Urine Blood 3+, Urine Nitrate Negative, Urine Bilirubin Negative, Urine Urobilinogen 0.2, Ur Leukocyte Esterase Trace, Urine RBC 3-5, Urine WBC 3-5, Ur Squamous Epith Cells 5-10, Urine Bacteria Trace 04/01/19 19:40: Urine Opiates Screen Negative, Urine Methadone Screen Negative, Ur Barbituates Screen Negative, Ur Phencyclidine Scrn Negative, Ur Amphetamines Screen Negative, U Benzodiazepines Scrn Negative, Urine Cocaine Screen Negative, U Marijuana (THC) Screen Negative 04/01/19 20:43: WBC 17.7 H, RBC 3.67 L, Hgb 11.3 L, Hct 33.1 L, MCV 90.4, MCH 3 1.0, MCHC 34.2, RDW 13.3, Plt Count 259, MPV 10.3, Neut % (Auto) 83.1 H, Lymph % (Auto) 12.3, [place] % (Auto) 3.8, Eos % (Auto) 0.7, Baso % (Auto) 0.1, Neut # (Auto) 14.7 H, Lymph # (Auto) 2.2, [place] # (Auto) 0.7, Eos # (Auto) 0.1, Baso # (Auto) 0.0, Total Counted 100, Neutrophils % (Manual) 86 H, Lymphocytes % (Manual) 11, Monocytes % (Manual) 3, Platelet Estimate Normal, RBC Morphology Normal 04/01/19 20:43: Blood Type O Positive, Antibody Screen Negative I & O for Last 24 hours: Intake & Output 03/30/19 03/31/19 04/01/19 04/02/19 11:59 11:59 11:59 11:59 Weight 210 lb
--- NOTE | 2019-04-02 00:10 | Progress Note ---
Internal Medicine - PN: Subj *Date: 04/02/19 *Time: 00:09 (The patient is being augmented with intravenous Pitocin because her contractions are irregular. She had 1 deep cord pattern deceleration, with good recovery and no repeat. Her cervix is now 9 cm, completely effaced, 0 station.) Exam Vital signs and Labs for Last 24 Hours: Temp Pulse Resp BP Pulse Ox 97.7 F 64 22 133/81 98 04/01/19 18:04 04/01/19 18:04 04/01/19 18:04 04/01/19 18:04 04/01/19 18:04 Laboratory Results - last 24 hr 04/01/19 19:40: Urine Color Yellow, Urine Appearance Clear, Urine pH 6.5, Ur Specific [place] 1.025, Urine Protein 1+, Urine Glucose (UA) 2+, Urine Ketones Trace, Urine Blood 3+, Urine Nitrate Negative, Urine Bilirubin Negative, Urine Urobilinogen 0.2, Ur Leukocyte Esterase Trace, Urine RBC 3-5, Urine WBC 3-5, Ur Squamous Epith Cells 5-10, Urine Bacteria Trace 04/01/19 19:40: Urine Opiates Screen Negative, Urine Methadone Screen Negative, Ur Barbituates Screen Negative, Ur Phencyclidine Scrn Negative, Ur Amphetamines Screen Negative, U Benzodiazepines Scrn Negative, Urine Cocaine Screen Negative, U Marijuana (THC) Screen Negative 04/01/19 20:43: WBC 17.7 H, RBC 3.67 L, Hgb 11.3 L, Hct 33.1 L, MCV 90.4, MCH 31.0, MCHC 34.2, RDW 13.3, Plt Count 259, MPV 10.3, Neut % (Auto) 83.1 H, Lymph % (Auto) 12.3, [place] % (Auto) 3.8, Eos % (Auto) 0.7, Baso % (Auto) 0.1, Neut # (Auto) 14.7 H, Lymph # (Auto) 2.2, [place] # (Auto) 0.7, Eos # (Auto) 0.1, Baso # (Auto) 0.0, Total Counted 100, Neutrophils % (Manual) 86 H, Lymphocytes % (Manual) 11, Monocytes % (Manual) 3, Platelet Estimate Normal, RBC Morphology Normal 04/01/19 20:43: Blood Type O Positive, Antibody Screen Negative I & O for Last 24 hours: Intake & Output 03/30/19 03/31/19 04/01/19 04/02/19 11:59 11:59 11:59 11:59 Weight 210 lb
--- NOTE | 2019-04-02 00:36 | Progress Note ---
Internal Medicine - PN: Subj *Date: 04/02/19 *Time: 00:36 (Cervix now completely effaced, completely dilated, +1 station. Baby looking good on the monitor.) Exam Vital signs and Labs for Last 24 Hours: Temp Pulse Resp BP Pulse Ox 97.7 F 64 22 133/81 98 04/01/19 18:04 04/01/19 18:04 04/01/19 18:04 04/01/19 18:04 04/01/19 18:04 Laboratory Results - last 24 hr 04/01/19 19:40: Urine Color Yellow, Urine Appearance Clear, Urine pH 6.5, Ur Specific [place] 1.025, Urine Protein 1+, Urine Glucose (UA) 2+, Urine Ketones Trace, Urine Blood 3+, Urine Nitrate Negative, Urine Bilirubin Negative, Urine Urobilinogen 0.2, Ur Leukocyte Esterase Trace, Urine RBC 3-5, Urine WBC 3-5, Ur Squamous Epith Cells 5-10, Urine Bacteria Trace 04/01/19 19:40: Urine Opiates Screen Negative, Urine Methadone Screen Negative, Ur Barbituates Screen Negative, Ur Phencyclidine Scrn Negative, Ur Amphetamines Screen Negative, U Benzodiazepines Scrn Negative, Urine Cocaine Screen Negative, U Marijuana (THC) Screen Negative 04/01/19 20:43: WBC 17.7 H, RBC 3.67 L, Hgb 11.3 L, Hct 33.1 L, MCV 90.4, MCH 31.0, MCHC 34.2, RDW 13.3, Plt Count 259, MPV 10.3, Neut % (Auto) 83.1 H, Lymph % (Auto) 12.3, [place] % (Auto) 3.8, Eos % (Auto) 0.7, Baso % (Auto) 0.1, Neut # (Auto) 14.7 H, Lymph # (Auto) 2.2, [place] # (Auto) 0.7, Eos # (Auto) 0.1, Baso # (Auto) 0.0, Total Counted 100, Neutrophils % (Manual) 86 H, Lymphocytes % (Manual) 11, Monocytes % (Manual) 3, Platelet Estimate Normal, RBC Morphology Normal 04/01/19 20:43: Blood Type O Positive, Antibody Screen Negative I & O for Last 24 hours: Intake & Output 03/30/19 03/31/19 04/01/1917/19 11:59 11:59 11:59 11:59 Weight 210 lb
--- NOTE | 2019-04-02 00:58 | Procedure Note ---
- Delivery Note Delivery Date:: 04/02/19 Delivery Time:: 00:43 Anesthesia Type: Epidural Was labor medically induced?: No Induction method: none Gestational age (weeks): 38 (Active labor at 38-4/7 weeks) delivered prior to 39 weeks?: Yes Justification for early elective delivery:: Active Labor, Gestational Hypertension (By history, but not during labor) Infant Gender: Male at 1 minute: 9 at 5 minutes: 9 Suction Catheter Type: Shahram AF:: clear Delivery Procedure:: This 33-year-old 5, now para 4, AB 1 white female was admitted at 38-4/7 weeks at approximately 1830 hrs. in active labor at 3 to 4 cm of dilatation. She was observed for a while, and her contractions increased. She labored under labor epidural, which worked well. Amniotomy for clear fluid occurred at 8 cm, and an internal monitor was placed at that time. Her contractions then weakened, and she was augmented with intravenous Pitocin. She went steadily to completion at 0030 on 04/02/2019. She pushed twice, and delivered spontaneously. There was a loose nuchal cord x1, which was easily reduced. There was no meconium. The baby's nasal and oropharynx were bulb suctioned, and the baby cried spontaneously on the perineum, as was delivered. The cord was clamped and cut, 3 vessels were noted to be within the cord, and cord blood was obtained. The cord pH is pending. The baby was handed into the arms of the attending RN, who assigned Apgars of 9 at 1 minute and 9 at 5 minutes to this 7 pound 9 ounce, 19.5 inch male infant, born at 0043 on 04/02/2019. The placenta delivered spontaneously, intact, at 0047. The uterus was inspected and was felt to be clean, and was involuting well, with IV Pitocin running. There were no lacerations. The rectovaginal septum was intact at the close of the procedure. The sponge and needle count was correct. The estimated blood loss was 350 cc. The patient tolerated the procedure well, and was recovered in excellent condition. Her blood type is O+. Her rubella titer is immune. She plans to bottlefeed. Placental Delivery Description: Spontaneous (Normal spontaneous vaginal delivery)
[2019-04-02 08:31] LABS: Hematocrit 31.7 % (37.0-47.0); Hemoglobin 11.1 g/dL (12.2-16.2)
--- OUTSIDE RECORDS SUMMARY | 2019-04-02 10:35 | External Medical Summary | Continuity of Care Document ---
:1985 Author Organization [facility] Address [address] [address] [address] [place] [address] Phone Care Team Providers Name Role Phone Lamont Attending Provider Kishore Trejo Primary Care Provider Maritza Marley Attending Provider Waylon Gold Primary Care Provider Steve Attending Provider Lamont Primary Care Provider Kristen Primary Care Provider Kristen Attending Provider Allergies, Adverse Reactions, Alerts Allergen Type Severity Reaction Last Updated Verified Status hydrocodone Allergy Unknown March Yes Active 2018 11:11am Medications Medication Status Dose Units Route Sig Qty Days Start End Instruct ions Date Date Promethazine Active 12.5 MG Oral Q6H 14 October Hcl 2018 11:21am Lurasidone Hcl Discontin 20 MG Oral Daily November ued 2018 2:28pm 2:33pm Buspirone Hcl Discontin 20 MG Oral Twice 120 November ued a day 2018 2:28pm 2:33pm Fluoxetine Hcl Discontin 20 mg Oral Daily November ued 2018 2:28pm 2:33pm Buspirone Hcl Discontin 20 MG Oral Twice 120 November ued a day , er 2018 13, 2:33pm 2018 1:59pm Fluoxetine Hcl Discontin 20 mg Oral Daily Novemberem b ued er 2018 13, 2:33pm 2018 1:59pm Lurasidone Hcl Discontin 20 MG Oral Daily Novemberem b ued er 2018 13, 2:33pm 2018 1:59pm Buspirone Hcl Discontin 20 MG Oral Twice 120 Janob er ued a day r 2018 1:59pm 11:37am Fluoxetine Hcl Discontin 20 mg Oral Daily 30 Octo syed ued r 2018 1:59pm 11:37am Lurasidone Hcl Discontin 20 MG Oral Daily 30 Octo syed ued r 2018 1:59pm 11:37am Buspirone Hcl Discontin 20 MG Oral Twice 120 January Novemb e ued a day r 2018 11:37am 10:34pm Fluoxetine Hcl Discontin 20 mg Oral Daily January be ued , r 2018 11:37am 10:34pm Lurasidone Hcl Discontin 20 MG Oral Daily 13 February Novem be ued r 2018 11:37am 10:34pm Famotidine Discontin 20 MG Oral At August ued bedtim , , e 2017 2018 nightl 9:09am 10:17am y Buspirone Hcl Discontin 10 MG Oral Twice July ued a day 2018 10:12am 2:05pm Fluoxetine Hcl Discontin 20 MG Oral Daily July ued 2018 10:12am 9:18am Sumatriptan Discontin 20 MG Intranas Q2H July ued al 2018 10:13am 2:05pm Atorvastatin Discontin 20 MG Oral Daily July Calcium ued 2018 7:17pm 2:05pm Lisinopril Discontin 10 MG Oral Daily July ued 2018 7:19pm 2:05pm Pnv,Calcium Discontin 1 TAB Oral Daily August 23August 72/Iron/Folic ued 2018, Acid 9:18am 2018 8:59am Buspirone Hcl Discontin 10 mg Oral Twice 60 August 23August ued a day 2018, 9:51am 2018 9:38pm Fluoxetine Hcl Discontin 20 mg Oral Daily September ued 2018 3:55pm 4:06pm Buspirone Hcl Discontin 20 MG Oral Twice 120 September ued a day 2018 3:55pm 4:57pm Buspirone Hcl Discontin 20 MG Oral Twice 120 October ued a day 2018 4:05pm 2:28pm Fluoxetine Hcl Discontin 20 mg Oral Daily October ued 2018 4:05pm 2:28pm Lurasidone Hcl Discontin 20 MG Oral Daily October ued 2018 1:32pm 2:28pm Esomeprazole Discontin 20 MG Oral Daily January Magnesium ued , 2018 3:01pm 10:34pm Buspirone Hcl Active 20 MG Oral Twice March 8:36am Fluoxetine Hcl Active 20 MG Oral Daily March 22, 2019 8:36am Lurasidone Hcl Active 20 MG Oral Daily 15 April t geovani with 2018 8:36am Labetalol Hcl Discontin 100 MG Oral Twice 60 July ued a day 2018 2:05pm 9:38pm Promethazine Discontin 12.5 MG Oral Q6H August 22August Hcl ued 2018, 5:17pm 2018 9:38pm Pnv,Calcium Active 1 TAB Oral Daily August/Iron/Folic , 2018 8:59am Buspirone Hcl Discontin 20 MG Oral Twice 120 September ued a day 2018 4:56pm 4:06pm Loratadine Discontin 10 MG Oral Daily October ued 2018 2:52pm 11:19am Labetalol Hcl Discontin 100 MG Oral Twice 180 October Novembe ued a day 30, r 2018 3:46pm 12:43pm Loratadine Discontin 0 Route .COMPL 90 Novemberemb T GEOVANI 1 TABLET ued EX , er 3rd, BY MOUTH ONC E 2018 2019 DAILY 11:19am 8:35pm Fexofenadine Discontin 60 MG Oral Twice 60 Novemb e Hcl ued a day r 3rd, r 2018 8:33pm 10:34pm Labetalol Hcl Discontin 0 Route .COMPL 180 February Nove mbe TAKE 1 TABLET ued EX , r 5th, BY MOUTH 2018 2018 TWICE DAILY 12:43pm 10:34pm FOR HIGH BLOOD PRESSURE Omeprazole Discontin 20 MG Oral Daily June Magnesium ued , 2017 11:09pm 8:17pm Comb Discontin 1.4 MG Oral Daily June No.42/Folic ued , Acid 2017 2018 11:09pm 10:17am Butalb/Acetami Discontin 1 TAB Oral Every September nophen/Caffein ued 6 , , e hours 2017 2018 as 7:53pm 10:17am needed Buspirone Hcl Discontin 10 MG Oral Twice 60 September ued a day 2017 3:11pm 10:17am Ibuprofen Discontin 800 MG Oral Every 30 September ued 6 15, , hours 2017 2018 as 3:11pm 10:17am needed Paroxetine Hcl Discontin 20 MG Oral Daily September ued 2017 3:11pm 10:17am Buspirone Hcl Discontin 10 MG Oral Twice August ued a day 2018 9:38pm 4:05pm Labetalol Hcl Discontin 100 MG Oral Twice August ued a day 2018 9:38pm 3:46pm Promethazine Discontin 12.5 MG Oral Q6H August Hcl ued 2018 9:38pm 11:21am Fluticasone Discontin 1 SPRAY NASAL Twice 1 September Propionate ued a day 2018 2:19pm 12:07am Loratadine Discontin 10 MG Oral Daily September ued 2018 2:19pm 2:52pm Amoxicillin Discontin 500 MG Oral Three July ued times , , a day 2018 2018 5:42pm 9:18am Methylpredniso Discontin 4 MG Oral As July lone ued Direct , , ed 2018 2018 5:42pm 12:07am Pnv Discontin 1 EACH Oral Daily July No.95/Ferrous ued , Fum/Folic Ac 2018 2018 3:17pm 12:04am Buspirone Hcl Discontin 20 MG Oral Twice Februarym be ued a day r 2018 10:34pm 8:37am Esomeprazole Active 20 MG Oral Daily February Magnesium 2018 10:34pm Fexofenadine Discontin 60 MG Oral Twice Februarymb e Hcl ued a day , r 2018 10:34pm 11:47pm Fluoxetine Hcl Discontin 20 MG Oral Daily February mbe ued , r 2018 10:34pm 8:37am Labetalol Hcl Active 0 TABLET .COMPL February TAKE 1 TABLET EX , BY MOUTH 2018 TWICE DAILY 10:34pm FOR HIGH BLOOD PRESSURE Lurasidone Hcl Discontin 20 MG Oral Daily February mbe ued r 2018 10:34pm 8:37am Problems Active Problems Medical Problem Onset Date [...] delivery Resolved Procedures Procedure Date Performed Status Urine Culture March 27, 2019 completed US OB follow up March 01, 2019 2:09pm completed Group B Streptococcus Screen March 25, 2019 completed (BECKY) Relevant Diagnostic Tests and/or Laboratory Data Laboratory Results Test Date/Time Result Interpretation Reference Result Perfo rming Range Comment Site Urine Color February 11:37am Urine Color January Yellow 2018 9:54am Urine Color March 12:16pm POC Urine October Negative Marijuana (THC) 2018 9:54am Urine Color November Ginger 2018 11:06am POC Urine Cocaine January Negative 2018 9:54am Urine Appearance March Clear 2018 12:16pm Urine Appearance November Clear 2018 11:37am Urine Appearance October Clear 2018 9:54am Urine Appearance November Clear 2018 11:06am POC Urine October Negative Morphine 2018 9:54am Urine Glucose February Negative (UA) 2018 11:37am Urine Glucose Marco Antonio Negative (UA) 2018 12:16pm Urine Glucose November Negative (UA) 2018 11:06am Urine Glucose October Negative (UA) 2018 9:54am Urine Bilirubin February negative 2018 11:37am Urine Bilirubin March negative 2018 12:16pm POC Urine October Negative Amphetamine 2018 9:54am Urine Bilirubin October negative 2018 9:54am Urine Bilirubin November negative 2018 11:06am Urine Ketones November Large 80 2018 mg/dL 11:37am POC Urine October Negative Methamphetamine 2018 9:54am Urine Ketones October Negative 2018 mg/dL 9:54am Urine Ketones March Negative 2018 mg/dL 12:16pm Urine Ketones February Negative 2018 mg/dL 11:06am Urine Protein February 100++ 2018 11:37am Urine Protein March Negative 2018 12:16pm POC Urine October Negative Barbiturates 2018 9:54am Urine Protein February Negative 2018 11:06am Urine Protein January 30+ 2018 9:54am Urine pH March 6.5 2018 12:16pm Urine pH October 6.0 2018 9:54am Urine pH November 6.5 2018 11:37am POC Urine October Negative Benzodiazepine 2018 9:54am Urine pH November 7.0 2018 11:06am Urine Blood January negative 2018 9:54am Urine Blood March negative 2018 12:16pm Urine Blood November negative 2018 11:06am Urine Blood November nonhemolyzed 2018 trace 11:37am POC Urine MDMA January Negative 2018 9:54am POC Urine October Negative Methadone 2018 9:54am Urine Specific November 1.015 Wyckoff 2018 11:06am Urine Specific November 1.020 Wyckoff 2018 11:37am Urine Specific October 1.030 Wyckoff 2018 9:54am Urine Specific Marco Antonio 1.015 Wyckoff 2018 12:16pm POC Urine October Negative Oxycodone 2018 9:54am Urine November 0.2 Urobilinogen 2018 Dipstick 11:06am Urine November 0.2 Urobilinogen 2018 Dipstick 11:37am Urine October 0.2 Urobilinogen 2018 Dipstick 9:54am Urine Marco Antonio 0.2 Urobilinogen 2018 Dipstick 12:16pm Urine Nitrate Marco Antonio Negative 2018 12:16pm Urine Nitrate October Negative 2018 9:54am Urine Nitrate November Negative 2018 11:06am Urine Nitrate November Negative 2018 11:37am POC Urine October Negative Phencyclidine 2018 9:54am Urine Leukocyte November Trace Esterase 2018 11:37am Urine Leukocyte October Trace Esterase 2018 9:54am Urine Leukocyte Marco Antonio Small Esterase 2018 12:16pm Urine Leukocyte November Trace Esterase 2018 11:06am POC Urine October Negative Buprenorphine 2018 9:54am Urine Color March Yellow Yellow [facility], [address] [place] [address] 36 [address] 2018 [place] [address] 7:30pm Urine Color January Yellow Yellow [facility], [address] [place] [address] 36 E 2018 [place] [address] 11:42am Urine Appearance January Clear Clear [facility], [address] [place] [address] 36 E 2018 [place] [address] 11:42am Urine Appearance Marco Antonio Clear Clear [facility], [address] [place] [address] 36 E 2018 [place] [address] 7:30pm Urine pH March 6.5 5.0-8.5 [facility], [address] [place] [address] 36 E 2018 [place] [address] 7:30pm Urine pH January 6.0 5.0-8.5 [facility], [address] [place] [address] 36 E 2018 [place] [address] 11:42am Urine Specific October 1.025 1.005-1.03 [facility], [address] [place] [address] 36 E Wyckoff 2018 0 [place] [address] 11:42am Urine Specific Marco Antonio <= 1.005 1.005-1.03 [facility], [address] [place] [address] E Wy[place]off 2018 0 [place] [address] 7:30pm Urine Protein January 1+ Negative [facility], [address] [place] [address] 36 E 2018 [place] [address] 11:42am Urine Protein Marco Antonio Negative Negative [facility], [address] [place] [address] 36 E 2018 [place] [address] 7:30pm Urine Glucose October Negative Negative [facility], [address] [place] [address] 36 E (UA) 2018 [place] [address] 11:42am Urine Glucose Marco Antonio Negative Negative [facility], [address] [place] [address] 36 E (UA) 2018 [place] [address] 7:30pm Urine Ketones Marco Antonio Negative Negative [facility], [address] [place] [address] 36 E 2018 [place] [address] 7:30pm Urine Ketones October Negative Negative [facility], [address] [place] [address] 36 E 2018 [place] [address] 11:42am Urine Blood Marco Antonio Negative Negative [facility], [address] [place] [address] 36 E 2018 [place] [address] 7:30pm Urine Blood October Negative Negative [facility], [address] [place] [address] 36 E 2018 [place] [address] 11:42am Urine Nitrate Marco Antonio Negative Negative [facility], [address] [place] [address] 36 E 2018 [place] [address] 7:30pm Urine Nitrate October Negative Negative [facility], [address] [place] [address] 36 E 2018 [place] [address] 11:42am Urine Bilirubin Marco Antonio Negative Negative [facility], [address] [place] [address] 36 E 2018 [place] [address] 7:30pm Urine Bilirubin October Negative Negative [facility], [address] [place] [address] 36 E 2018 [place] [address] 11:42am Urine October 0.2 EU/dl [facility], [address] [place] [address] 36 E Urobilinogen 2018 [place] [address] 11:42am Urine Marco Antonio 0.2 EU/dl [facility], [address] [place] [address] 36 E Urobilinogen 2018 [place] [address] 7:30pm Urine Leukocyte March 17+ Negative [facility], [address] [place] [address] E Esterase 2018 [place] [address] 7:30pm Urine Leukocyte January Trace Negative [facility], [address] [place] [address] E Esterase 2018 [place] [address] 11:42am Urine RBC January None #/hpf [facility], [address] [place] [address] E 2018 [place] [address] 11:42am Urine WBC March 21 #/hpf [facility], [address] [place] [address] E 2018 [place] [address] 7:30pm Urine WBC January Occasional [facility], [address] [place] [address] 36 E 2018 #/hpf [place] [address] 11:42am Urine Squamous March 21 #/hpf [facility], [address] [place] [address] E Epithelial Cells 2018 Cy [place]ana [place] [address] 7:30pm Urine Squamous January Occasional [facility], [address] [place] [address] E Epithelial Cells 2018 #/hpf Cy [place] [address] 11:42am Urine Amorphous March Trace /lpf None [facility], [address] [place] [address] E Sediment 2018 [place] [address] 7:30pm Urine Bacteria January Trace /lpf NONE [facility], [address] [place] [address] 36 E 2018 [place] [address] 11:42am Fasting Glucose December 89 mg/dL 60-105 [facility], [address] [place] [address] 36 E 2018 [place] [address] 8:22am Glucose 1 Hour December 132 mg/dL 74-106 [facility], [address] [place] [address] 36 E 2018 [place] [address] 8:22am Urine Fasting December Negative [facility], [address] [place] [address] 36 E Glucose 2018 mg/dL [place] [address] 8:22am Urine Glucose 1 December Negative [facility], [address] [place] [address] 36 E Hour 2018 mg/dL [place] [address] 8:22am Membranes January Negative Negative [facility], [address] [place] [address] E Rupture (PAMG-1) [address] [place] [address] 11:42am Urine Opiates October Negative [facility], [address] [place] [address] E Screen 2018 ng/[place] [address] 11:42am Urine Opiates Marco Antonio Negative [facility], [address] [place] [address] E Screen 2018 ng/[place] [address] 7:30pm Urine Barbituates October Negative [facility], [address] [place] [address] E Screen 2018 ng/[place] [address] 11:42am Urine Barbituates Marco Antonio Negative [facility], [address] [place] [address] E Screen 2018 ng/[place] [address] 7:30pm Urine Marco Antonio Negative [facility], [address] [place] [address] E Phencyclidine 2018 ng/[place] [address] Screen 7:30pm Urine October Negative [facility], [address] [place] [address] E Phencyclidine 2018 ng/[place] [address] Screen 11:42am Urine October Negative [facility], [address] [place] [address] E Amphetamines 2018 ng/[place] [address] Screen 11:42am Urine Marco Antonio Negative [facility], [address] [place] [address] E Amphetamines 2018 ng/[place] [address] Screen 7:30pm Urine Methadone Marco Antonio Negative [facility], [address] [place] [address] E Screen 2018 ng/[place] [address] 7:30pm Urine Methadone October Negative [facility], [address] [place] [address] E Screen 2018 ng/[place] [address] 11:42am Urine October Negative [facility], [address] [place] [address] E Benzodiazepines 2018 ng/[place] [address] Screen 11:42am Urine Marco Antonio Negative [facility], [address] [place] [address] E Benzodiazepines 2018 ng/[place] [address] Screen 7:30pm Urine Cocaine October Negative [facility], [address] [place] [address] E Screen 2018 ng/[place] [address] 11:42am Urine Cocaine March Negative [facility], [address] Screen 2018 ng/[place] [address] 7:30pm Urine Marijuana January Negative [facility], [address] (THC) Screen 2018 ng/[place] [address] 11:42am Urine Marijuana March Negative [facility], [address] [facility] [address] (THC) Screen 2018 ng/[place] [address] 7:30pm Microbiology Results Procedure Source Result Collection Result Result Performin g Date/Time Date/Time Comment Site Urine Culture Urine,Susy NO GROWTH March [facility], [facility] Catch AFTER 48 [address] [place] [address] HOURS 7:30pm 8:06pm Group B Vaginal Negative March 25March [facility], [address] Streptococcus for Group B 2018 11:06am 2018 [place] [address] Screen (BECKY) Streptococc 7:49am us. Diagnostic Imaging Reports Report Dictated Date/Time Dictated By Status Radiology Report March 01, 2019 Demarco Baca MD completed 2:27pm [id number] [facility] [address] [place] [id number] Ultrasoun d Report Sig orlin Patient: Serenity Connors MR#: [id number] : 1985 Acct:[id number] Age/Sex: 33 / F ADM Date: 9 Loc: RAD Attending Dr: Ashwini Miguel MD Ordering Physician: Ashwini Miguel MD Date of Service: 03/01/19 Procedure(s): US OB follow up Accession Number(s): [id number] cc: Demarco Baca MD; Ronny Trejo MD~ [...] 18:01 Health Concerns Concerns ANTEPARTUM KICK COUNTS Advance Directives Advance Directive Response Recorded Date/Time Does the patient have an No March 27, 2019 8:25am advanced directive on file? Living Will No March 27, 2019 8:25am Does the patient have an No March 21 019 9:15am advanced directive on file? Living Will No March 21, 2019 9 :15am Does the patient have an No December 12 12:08pm advanced directive on file? Living Will No December 12, 2018 12 :08pm Does the patient have an No November 01, 2018 2:31pm advanced directive on file? Living Will No November 01, 2018 2:31 pm Does the patient have an No September 20, 2018 1:28pm advanced directive on file? Living Will No September 20, 2018 1:28p m Does the patient have an No August 02 9 10:40am advanced directive on file? Living Will No August 02, 2018 10: 40am Does the patient have an No September 13, 2017 8:16am advanced directive on file? Living Will No September 13, 2017 8:16a m Does the patient have an No March 06, 2019 12:17pm advanced directive on file? Living Will No March 06, 2019 12:17pm Does the patient have an No February 24, 2019 12:52pm advanced directive on file? Living Will No February 24, 2019 12:52pm Does the patient have an No November 13, 2018 11:25pm advanced directive on file? Living Will No November 13, 2018 11:2 5pm Does the patient have an No July 23, 2018 10:47am advanced directive on file? Living Will No July 23, 2018 10:4 7am Does the patient have an No September 27, 2017 10:08am advanced directive on file? Living Will No September 27, 2017 10:0 8am Chief Complaint and Reason for Visit Chief Complaint LAB WORK [facility] (follow up ) NST Due 1229 Pain NST 31 weeks NST Due 1228 V&D for 4 day s growth & franky / lga Nst Due 04/13 contractions OB F/U NST NST NST Due 04/13 contractio ns [facility] (follow up ) LAB WORK NST loss mucus plug Labor Encounters Encounter Location(s) Arrival/Admit Date Discharge/Depart Date Provider(s) Registered [facility] Physician January 04, Ashwini Miguel Clinical Group-Laboratory 2018 8:20am Departed [facility] Physician January 25, 2019 January 25, 2019 Gisel Miguel Physician/[facility]Women[facility] 9:42am 10:28am [facility] Visit Departed [facility] Physician January 25, 2019 January 25, 2019 Gisel Salas Physician/[facility]-Behavioral 10:38am 1:55pm ANGEL Marley [facility] Visit Registered [facility] Physician February 04, 2019 February 04, 2019 [place] [facility] 5:41pm 6:20pm MD Adelaida Wilson Departed [facility] Physician February 13, 2019 February 13, 2019 Gisel Miguel Clinical Group-OB 11:23am 1:10pm Outpatient Service Departed [facility] Physician February 15, 2019 February 15, 2019 Gisel Miguel Physician/[facility] 10:33am 11:21am [facility] Visit Registered [facility] Physician February 19, 2019 February 19, 2019 [place] [facility] 9:29pm 11:58pm MD Adelaida Wilson Registered [facility] Physician March 01, Ashwini Miguel Clinical Group-Radiology 2018 2:07pm Registered [facility] Physician March 05, March 05, 2019 Ashwini Miguel , Inpatient Group-Women's 2018 6:04pm 10:00pm MD Adelaida Wilson Departed [facility] Physician March 06, March 06, 2019 Ashwini Miguel , Physician/[facility]Women[facility] 2018 10:13am 11:33am [facility] Visit Registered [facility] Physician March 06 March 06, 2019 Ashwini Miguel Inpatient Group-Women's 2019 11:49am 9:52pm MD Adelaida Wilson Registered [facility] Physician March 07, Ashwini Miguel Inpatient Group- 2019 3:17pm Registered [facility] Physician March 17, 2019 March 17, 2019 Gisel Miguel Inpatient Group-Women's 12:44pm 2:05pm MD Adelaida Wilson Departed [facility] Physician March 18, 2019 March 18, 2019 Gisel Miguel Physician/[facility] 10:30am 11:21am [facility] Visit Registered [facility] Physician March 21, 2019 March 22, 2019 Gisel Miguel Inpatient Group-Women's 10:30pm 12:55am MD Adelaida Wilson Departed [facility] Physician March 22, 2019 March 22, 2019 Gisel Salas Physician/[facility]Behavioral 8:12am 9:08am ANGEL Marley [facility] Visit Departed [facility] Physician March 25, 2019 March 25, 2019 Gisel Miguel Physician/[facility]Women's 10:40am 11:45am [facility] Visit Registered [facility] Physician March 26, Ashwini Miguel Clinical Group-Lab Drop 2018 11:14am Off to [facility] Departed [facility] Physician March 27, March 27, 2019 Ashwini Miguel Clinical Group-OB 2019 7:16pm 9:09pm Outpatient Service Registered [facility] Physician April 01, Jeffrey jara , Inpatient Group-Just for 2019 8:33pm MD Chappell Registered [facility] Physician April 02, Jeffrey jara , Inpatient Group- 2019 10:30am MD Assessments See care plan goalsSee care plan goals Family History Relationship Condition Age at Onset Recorded Date/Ti me Unknown Family History Unknown March 25 11:10am Functional Status Observation Response Date Recorded Ambulation Ability Independent March 27, 2019 9:08pm Ambulation Ability Independent February 13, 2019 1 :10pm Functional status ambulatory March 27, 2019 8:25am Oral Care Ability Independent March 27, 2019 8:25am Bathing Ability Independent March 27, 2019 8:25am Functional status ambulatory March 21, 2019 9 :15am Functional status ambulatory March 22, 2019 8 :36am Oral Care Ability Independent March 22, 2019 8 :36am Bathing Ability Independent March 22, 2019 8 :36am Eating (Feeding) Ability Independent March 22 2 019 8:36am Toileting Ability Independent March 22, 2019 8 :36am Ambulation Ability Independent March 22, 2019 8 :36am Functional status ambulatory January 25, 2019 1 0:29am Functional status ambulatory March 06, 2019 12:17pm Functional status ambulatory February 24, 2019 12:52pm Functional status ambulatory January 25, 2019 1 1:37am Oral Care Ability Independent January 25, 2019 1 1:37am Bathing Ability Independent January 25, 2019 1 1:37am Eating (Feeding) Ability Independent January 25 2 019 11:37am Toileting Ability Independent January 25, 2019 1 1:37am Ambulation Ability Independent January 25, 2019 1 1:37am Goals Acute Goals Nursing Diagnosis: Knowledge Deficit [...] Immunizations Immunization Event Date Not Given Dose Rewinder Operator Helper Lot Vac cine Reason Number Number Informatio n Statement (VIS) Deta il Fluvirin January 30, 2013 Fluzone Quad Marcho+ 2014 Fluzone Quad Februaryo+ 2016 Pneumococcal December 07, Polysacc. 2018 Vaccine, valent Influenza, January unspecified 2012 formulation Mental Status Observation Response Date Recorded Able to Read Yes March 27, 2019 7:36pm Able to Write Yes March 27, 2019 7:36pm Able to Read Yes February 13, 2019 1 1:41am Able to Write Yes February 13, 2019 1 1:41am Medical Equipment No Medical Equipment Information available Insurance Providers Guarantor Serenity Connors Address [address] [facility] [address] Contact Info. Home Phone: Payer Policy Id Coverage Id Subscriber's Subscriber Id Effective E xpiration Name Date Date Self Pay Self N/A [facility] [id number] Serenity Jara [id number] Health Plan [place] [facility] Plan of Treatment Follow up as ordered by primary care provider Follow up as ordered by primary care provider IOL scheduled at 38 wks, per recommendations for CHTN with medical management kick counts advised continue labetalol Labor precautions, kick counts RTO 1 wk Continue labetolol 100 BID Ultrasound for growth and FRANKY 34 wks RTO 3 wks Sent to L&D for admission for observation Alicja q 2-3 minutes on NST in office Will start scheduled procardia and give second dose of brethine tonight PTL precautions, kick counts Continue labetalol Ultrasound for growth and FRANKY scheduled Tobacco cessation RTO 2 wks Future Tests Future scheduled test information is unavailable Pending Tests Pending diagnostic test information is unavailable Future Visits Future appointment information is unavailable Referrals to Other Providers Reason for Referral Start Provider Provider Contact Provider Address Referral Date Information Admission to [facility] April [id number] [facility] Ashwini Miguel Work Phone: [employer] [address] [phone] Future Procedures Future procedure information is unavailable Future Medications Future medication information is unavailable Patient Instructions Low Back Pain (Alternative Therapy) Antepartum Care Antepartum Care DI for False Labor Antepartum Care False Labor DI for False Labor DI for False Labor Esophageal Stricture Esophageal Variceal Injection Viral Pharyngitis Hiatal Hernia Esophageal Cancer Common Cold Endoscopic Band Ligation Rotavirus Norovirus Infection Achalasia Esophageal Varices Viral Gastroenteritis Esophagectomy Steakhouse Syndrome Esophageal Dilation Esophageal Dysphagia DI for Gonzalez's Esophagus Sudden Syndrome [facility] Shaken Baby Syndrome Post Discharge Instructions Viral Pharyngitis Common Cold Rotavirus Norovirus Infection Viral Gastroenteritis Middle Ear Infection Bipolar Disorder (Alternative Therapy) Hypertension (Alternative Therapy) Anxiety Disorders Essential Hypertension Diet Anxiety Disorders DI for Pelvic Pain Essential Hypertension DI for Allergic Rhinitis Anxiety Disorders How to Quit Smoking Anxiety Disorders How to Breastfeed Your Baby Acute Abdominal Pain Bipolar Disorder Anxiety Disorders Bipolar Disorder How to Quit Smoking DI for Viral Upper Respiratory Infection -- [...] How to Quit Tobacco Products Antepartum Care Antepartum Care Bipolar Disorder Diet How to Quit Tobacco Products How to Do Kick Counts Antepartum Care Bipolar Disorder Anxiety Disorders Diet How to Do Kick Counts Antepartum Care Depression Hemorrhage [facility] Post Discharge Instructions Social History Smoking Status Status Date of Observation Smokes tobacco daily (finding) March 27, 2019 8:2 5am Observation Status Date of Observation Not March 22, 2019 Assigned Sex Female Vital Signs Vital Reading Result Reference Range Collection Date/ Time Height 162.56 cm January 25 10:02am Weight 95.25 kg January 25 10:02am BP Systolic 124 mm[Hg] 110-140 January 25 10:02am BP Diastolic 78 mm[Hg] 60-90 January 25 10:02am BMI (Body Mass Index) 36.0 kg/m2 January 252018 10:02am Height 162.56 cm January 25 11:07am Weight 95.25 kg January 25 11:07am Body Temperature 96.6 [degF] 97.6-99.6 January 25 11:07am Heart Rate 96 /min 60-90 January 25 11:07am Oxygen saturation by 92 % 95-100 January Pulse oximetry 11:07am BP Systolic 129 mm[Hg] 110-140 January 25, 20 11:07am BP Diastolic 76 mm[Hg] 60-90 January 25, 11:07am BMI (Body Mass Index) 36.0 kg/m2 January 252018 11:07am Height 162.56 cm February 04, 5:52pm Weight 95.70 kg February 04, 5:52pm Body Temperature 98.0 [degF] 97.6-99.6 February 04, 2 019 5:52pm Heart Rate 89 /min 60-February 04, 5:52pm Respiratory rate 18 /min -February 04, 2 019 5:52pm Oxygen saturation by 98 % 95-100 January Pulse oximetry 5:52pm BP Systolic 138 mm[Hg] 110-140 February 04, 5:52pm BP Diastolic 74 mm[Hg] 60-90 February 04, 5:52pm BMI (Body Mass Index) 36.2 kg/m2 February 042018 5:52pm Height 162.56 cm February 13, 11:41am Weight 95.25 kg February 13, 11:41am Body Temperature 98.0 [degF] 97.6-99.6 February 13, 2 019 11:41am Heart Rate 95 /min 60-February 13, 11:41am Respiratory rate 18 /min -February 13, 2 019 11:41am Oxygen saturation by 97 % 95-100 January Pulse oximetry 11:41am BP Systolic 140 mm[Hg] 110-140 February 13, 20 11:41am BP Diastolic 83 mm[Hg] 60-90 February 13, 20 11:41am BMI (Body Mass Index) 36.0 kg/m2 February 132018 11:41am Height 162.56 cm February 15, 10:37am Weight 93.44 kg February 15, 10:37am BP Systolic 118 mm[Hg] 110-140 February 15, 10:37am BP Diastolic 78 mm[Hg] 60-90 February 15, 10:37am BMI (Body Mass Index) 35.3 kg/m2 February 152018 10:37am Height 165.1 cm February 19 10:36pm Weight 93.44 kg February 19 10:36pm Body Temperature 98.1 [degF] 97.6-99.6 February 19, 019 10:36pm Heart Rate 98 /min 60-February 19 10:36pm Respiratory rate 16 /min -February 19, 019 10:36pm Oxygen saturation by 97 % 95-100 February Pulse oximetry 10:36pm BP Systolic 137 mm[Hg] 110-140 February 19 10:36pm BP Diastolic 79 mm[Hg] 60-February 19 10:36pm BMI (Body Mass Index) 34.2 kg/m2 February 192018 10:36pm Height 165.1 cm March 05, 019 6:31pm Weight 93.44 kg March 05 019 6:31pm Body Temperature 98.2 [degF] 97.6-99.6 March 05, 2019 6:31pm Heart Rate 106 /min -March 05 019 6:31pm Respiratory rate 18 /min -March 05, 2019 6:31pm Oxygen saturation by 99 % 95-100 March 052018 Pulse oximetry 6:31pm BP Systolic 126 mm[Hg] 110-140 March 05 019 6:31pm BP Diastolic 82 mm[Hg] 60-90 March 05 019 6:31pm BMI (Body Mass Index) 34.2 kg/m2 February 152018 6:31pm Height 165.1 cm March 06 019 10:37am Weight 94.34 kg March 06 019 10:37am BP Systolic 140 mm[Hg] 110-140 March 06 019 10:37am BP Diastolic 72 mm[Hg] 60-90 March 06 019 10:37am BMI (Body Mass Index) 34.6 kg/m2 February 162018 10:37am Height 165.1 cm March 06 12:14pm Weight 93.44 kg March 06 019 12:14pm BMI (Body Mass Index) 34.2 kg/m2 February 162018 12:14pm Height 165.1 cm Marco Antonio 1st, 20 19 12:59pm Weight 94.80 kg March 17, 20 19 12:59pm Body Temperature 97.5 [degF] 97.6-99.6 March 17, 2 019 12:59pm Heart Rate 104 /min -March 17, 20 19 12:59pm Respiratory rate 20 /min -March 17, 2 019 12:59pm Oxygen saturation by 98 % 95-100 March Pulse oximetry 12:59pm BP Systolic 134 mm[Hg] 110-140 March 17, 20 19 12:59pm BP Diastolic 80 mm[Hg] 60-March 17, 20 19 12:59pm BMI (Body Mass Index) 34.7 kg/m2 March 172018 12:59pm Height 165.1 cm March 18, 20 10:40am Weight 95.25 kg March 18, 20 10:40am Body Temperature 97.8 [degF] 97.6-99.6 March 18, 2 019 10:40am Heart Rate 80 /min March 18, 20 10:40am BP Systolic 128 mm[Hg] 110-140 March 18, 20 19 10:40am BP Diastolic 78 mm[Hg] -March 18, 20 19 10:40am BMI (Body Mass Index) 34.9 kg/m2 March 182018 10:40am Height 165.1 cm March 21, 20 11:00pm Weight 95.25 kg March 21, 20 19 11:00pm Body Temperature 98.1 [degF] 97.6-99.6 March 21, 2 019 11:00pm Heart Rate 111 /min March 21, 20 19 11:00pm Respiratory rate 16 /min 04-09March 21, 2 019 11:00pm Oxygen saturation by 96 % 95-100 March Pulse oximetry 11:00pm BP Systolic 147 mm[Hg] 110-140 March 21, 20 19 11:00pm BP Diastolic 75 mm[Hg] -March 21, 20 19 11:00pm BMI (Body Mass Index) 34.9 kg/m2 March 212018 11:00pm Height 165.1 cm March 22, 20 19 8:30am Weight 94.80 kg March 22, 20 19 8:30am Heart Rate 112 /min March 22, 20 19 8:30am Oxygen saturation by 94 % 95-100 March Pulse oximetry 8:30am BP Systolic 130 mm[Hg] 110-140 March 22 8:30am BP Diastolic 75 mm[Hg] 60-90 March 22 8:30am BMI (Body Mass Index) 34.7 kg/m2 March 222018 8:30am Height 165.1 cm March 25, 11:20am Weight 95.25 kg March 25 11:20am BP Systolic 136 mm[Hg] 110-140 March 25 11:20am BP Diastolic 74 mm[Hg] 60-90 March 25 11:20am BMI (Body Mass Index) 34.9 kg/m2 March 252018 11:20am Height 165.1 cm March 27, 2 019 7:46pm Weight 95.25 kg March 27, 2 019 7:46pm Body Temperature 97.6 [degF] 97.6-99.6 March 27, 2019 7:36pm Heart Rate 136 /min March 27, 2 019 7:36pm Respiratory rate 16 /min -March 27, 2019 7:36pm Oxygen saturation by 96 % 95-100 March 272018 Pulse oximetry 7:36pm BP Systolic 134 mm[Hg] 110-140 March 27, 2 019 7:36pm BP Diastolic 81 mm[Hg] 60-March 27, 2 019 7:36pm BMI (Body Mass Index) 34.9 kg/m2 March 172018 7:46pm Height 165.1 cm April 01, 2 019 6:04pm Weight 95.25 kg April 01, 2 019 6:04pm Body Temperature 97.7 [degF] 97.6-99.6 April 01, 2019 6:04pm Heart Rate 64 /min -April 01, 2 019 6:04pm Respiratory rate 22 /min 04-09April 01, 2019 6:04pm Oxygen saturation by 98 % 95-100 April 012018 Pulse oximetry 6:04pm BP Systolic 133 mm[Hg] 110-140 April 01, 2 019 6:04pm BP Diastolic 81 mm[Hg] 60-April 01, 2 019 6:04pm BMI (Body Mass Index) 34.9 kg/m2 March 172018 6:04pm
--- NOTE | 2019-04-02 13:33 | Discharge Summary ---
General - General Admission date:: 04/01/19 Discharge date: 04/02/19 HPI HPI: Admitted with active labor S/P normal course uncomplicated transferred to for TTN, and mother requesting discharge same day as delivery in order to be with infant Hospital Course Hospital Course: per HPI Rhogam Administration: Not Indicated Objective Vital signs: Temp Pulse Resp BP Pulse Ox 97.7 F 64 22 133/81 98 04/01/19 18:04 04/01/19 18:04 04/01/19 18:04 04/01/19 18:04 04/01/19 18:04 Narrative: CONSTITUTIONAL: no acute distress HEENT: mucous membranes moist PULMONARY: breathing unlabored without audible wheezes CV: no tachycardia or visible JVD; normal LE peripheral pulses ABD: soft, NT/ND, no guarding : fundus firm at/below umbilicus SKIN: no visible rash or lesions EXT: 1+ edema LEs NEURO: alert/oriented, no altered mental status PSYCH: appropriate mood and demeanor without visible anxiety/depression Results Labs on day of discharge: Labs from last 24 hours 04/02/19 04/02/19 04/01/19 08:15 00:57 20:43 WBC RBC Hgb 11.1 L Hct 31.7 L MCV MCH MCHC RDW Plt Count MPV Neut % (Auto) Lymph % (Auto) [place] % (Auto) Eos % (Auto) Baso % (Auto) Neut # (Auto) Lymph # (Auto) [place] # (Auto) Eos # (Auto) Baso # (Auto) Total Counted Neutrophils % (Manual) Lymphocytes % (Manual) Monocytes % (Manual) Platelet Estimate RBC Morphology Cord ABG pH 7.36 Urine Color Urine Appearance Urine pH Ur Specific [place] Urine Protein Urine Glucose (UA) Urine Ketones Urine Blood Urine Nitrate Urine Bilirubin Urine Urobilinogen Ur Leukocyte Esterase Urine RBC Urine WBC Ur Squamous Epith Cells Urine Bacteria Urine Opiates Screen Urine Methadone Screen Ur Barbituates Screen Ur Phencyclidine Scrn Ur Amphetamines Screen U Benzodiazepines Scrn Urine Cocaine Screen U Marijuana (THC) Screen Blood Type O Positive Antibody Screen Negative 04/01/19 04/01/19 04/01/19 20:43 19:40 19:40 WBC 17.7 H RBC 3.67 L Hgb 11.3 L Hct 33.1 L MCV 90.4 MCH 31.0 MCHC 34.2 RDW 13.3 Plt Count 259 MPV 10.3 Neut % (Auto) 83.1 H Lymph % (Auto) 12.3 [place] % (Auto) 3.8 Eos % (Auto) 0.7 Baso % (Auto) 0.1 Neut # (Auto) 14.7 H Lymph # (Auto) 2.2 [place] # (Auto) 0.7 Eos # (Auto) 0.1 Baso # (Auto) 0.0 Total Counted 100 Neutrophils % (Manual) 86 H Lymphocytes % (Manual) 11 Monocytes % (Manual) 3 Platelet Estimate Normal RBC Morphology Normal Cord ABG pH Urine Color Yellow Urine Appearance Clear Urine pH 6.5 Ur Specific [place] 1.025 Urine Protein 1+ Urine Glucose (UA) 2+ Urine Ketones Trace Urine Blood 3+ Urine Nitrate Negative Urine Bilirubin Negative Urine Urobilinogen 0.2 Ur Leukocyte Esterase Trace Urine RBC 3-5 Urine WBC 3-5 Ur Squamous Epith Cells 5-10 Urine Bacteria Trace Urine Opiates Screen Negative Urine Methadone Screen Negative Ur Barbituates Screen Negative Ur Phencyclidine Scrn Negative Ur Amphetamines Screen Negative U Benzodiazepines Scrn Negative Urine Cocaine Screen Negative U Marijuana (THC) Screen Negative Blood Type Antibody Screen DS: Diagnosis - Discharge Diagnosis (1) Vaginal delivery Status: Acute (2) Hypertension during Status: Acute Discharge Plan - Patient Discharge Instructions ACTIVITY: Limited activity DIET: regular diet Additional Instructions: NOTHING IN THE VAGINA, NO STRENUOUS ACTIVITY AND NO HEAVY LIFTING. Patient Instructions: Depression, Hemorrhage, [facility] Post Discharge Instructions - Follow up Plan Follow up with: Ashwini Miguel MD [Staff Physician] - 05/15/19 10:00 am Disposition: Home, Self-Half-Way Medications: Home Medications Medication Instructions Recorded Confirmed Type vitamin with calcium 1 tab PO DAILY #30 tab 09/12/18 04/01/19 Rx no.72-iron 27 mg-folic acid 1 mg tablet promethazine 12.5 mg tablet 12.5 mg PO Q6H PRN #30 tab 10/03/18 04/01/19 Rx Esomeprazole Magnesium [Nexium 20 mg PO DAILY 02/19/19 04/01/19 History 24HR] Labetalol HCl See Rx Instructions .ROUTE .COMPLEX 02/19/19 04/01/19 History buspirone 10 mg tablet 20 mg PO BID #60 tab 03/22/19 04/01/19 Rx fluoxetine 20 mg capsule 20 mg PO DAILY #30 cap 03/22/19 04/01/19 Rx lurasidone 20 mg tablet 20 mg PO DAILY #30 tab 03/22/19 04/01/19 Rx Ibuprofen [Motrin 400mg 400 mg PO Q4HP PRN #30 tab 04/02/19 Rx tablet] Oxycodone HCl [OxyIR 5mg tablet] 5 mg PO Q4HP PRN #20 tab 04/02/19 Rx Prescriptions/Medication Reconciliation: New Ibuprofen [Motrin 400mg tablet] 400 mg PO Q4HP PRN #30 tab PRN Reason: Mild Pain Oxycodone HCl [OxyIR 5mg tablet] 5 mg PO Q4HP PRN #20 tab PRN Reason: Moderate Pain Continued vitamin with calcium no.72-iron 27 mg-folic acid 1 mg tablet 1 tab PO DAILY #30 tab promethazine 12.5 mg tablet 12.5 mg PO Q6H PRN #30 tab PRN Reason: Nausea fluoxetine 20 mg capsule 20 mg PO DAILY #30 cap lurasidone 20 mg tablet 20 mg PO DAILY #30 tab buspirone 10 mg tablet 20 mg PO BID #60 tab Esomeprazole Magnesium [Nexium 24HR] 20 mg PO DAILY Labetalol HCl See Rx Instructions .ROUTE .COMPLEX - Problem Reconciliation Problems Reviewed?: Yes
== END 2019-04-02 17:30 | disposition home or self-care (01) | DRG 807 ==
LOC: OB 17:59 → OBOUT 17:59 → OB 18:03
PROVIDERS: ADMIT Obstetrics & Gynecology; ATTEND Obstetrics & Gynecology
CPT/HCPCS: 59025; 80305; 81001; 82800; 85007; 85014; 85018; 85025; 86850; 90686; 96360; C1758; J2405

== ENCOUNTER → 2019-09-12 08:12 | Outpatient (CLI) | payer MEDICAID, SELFPAY ==
[2019-09-12 08:48] LABS: Basophils # 0.1 K/mm3 (0-0.2); Basophils % 0.5 % (0.1-2.0); Eosinophils # 0.3 K/mm3 (0.0-0.4); Eosinophils % 2.8 % (0.1-12.0); Hematocrit 40.1 % (37.0-47.0); Hemoglobin 13.9 g/dL (12.2-16.2); Lymphocytes # 3.3 K/mm3 (0.7-4.5); Lymphocytes % 27.6 % (10-50); Mean Corpuscular HGB Conc 34.5 g/dL (31.8-35.4); Mean Corpuscular Hemoglobin 30.7 pg (27.0-31.2); Mean Corpuscular Volume 89.1 fl (81-99); Mean Platelet Volume 9.2 fl (7.4-10.4); Monocytes # 0.5 K/mm3 (0.1-1.0); Monocytes % 3.8 % (1.7-9.3); Neutrophils # 7.8 K/mm3 (1.8-7.8); Neutrophils % 65.3 % (37.0-80.0); Platelet Count 267 K/mm3 (142-424); Red Blood Count 4.51 M/mm3 (4.20-5.40); White Blood Count 11.9 K/mm3 (4.8-10.8)
[2019-09-12 09:20] LABS: HCG Qualitative, Serum Negative (Negative)
[2019-09-12 10:20] LABS: Chloride 105 mmol/L (98-107)
[2019-09-12 10:21] LABS: Sodium 137 mmol/L (136-145)
[2019-09-12 10:23] LABS: Alanine Aminotransferase 18 U/L (12-78); Albumin Level 4.4 g/dl (3.5-5.0); Albumin/Globulin Ratio 1.6 (1.1-1.8); Alkaline Phosphatase 102 U/L (38-126); Aspartate Amino Transferase 25 U/L (14-36); Bilirubin,Total 0.4 mg/dl (0.2-1.3); Blood Urea Nitrogen 10 mg/dl (7-17); Calcium 9.3 mg/dl (8.4-10.2); Carbon Dioxide 24 mmol/L (22.0-30.0); Estimated Glomerular Filt Rate 97 ml/min (>60); GFR (African American) 117 ML/MIN (>60); Globulin 2.7 g/dL (1.3-3.2); Glucose 88 mg/dl (74-100); Total Protein,Serum 7.1 g/dl (6.3-8.2)
[2019-09-12 10:24] LABS: Coronavirus 19 IgG Antibody Negative (Negative); Coronavirus 19 IgM Antibody Negative (Negative)
== END ==
PROVIDERS: Visit Provider Obstetrics & Gynecology
DX: Z01.818 Encounter for other preprocedural examination (principal)
CPT/HCPCS: 36415; 80053; 84703; 85025; 86328

== ENCOUNTER 2019-09-13 09:53 | Day surgery (SDC) | payer MEDICAID, SELFPAY ==
--- NOTE | 2019-09-11 10:38 | SUR.PREOP ---
09/11/2019 @ 1038--PHONE CALL MADE TO PATIENT. PATIENT UNDERSTANDS THAT LAB WORK AND COVID TESTING NEEDS TO BE COMPLETED BEFORE 10 ON 09/12/2019. PATIENT UNDERSTANDS IF LAB WORK AND COVID-19 TESTS ARE NOT COMPLETED BY 12PM ON THAT DATE, THE SURGERY SCHEDULED WILL BE CANCELLED AND RESCHEDULED FOR ANOTHER TIME.
[2019-09-11 13:36] VITALS: BMI 33.1
[2019-09-13] VITALS (15 sets, daily range): BP systolic 121–168; BP diastolic 79–100; PULSE 53–97; RESP 12–26; TEMP 36.6–43; O2SAT 89–100
--- NOTE | 2019-09-13 14:22 | HMH.ANESCL ---
[facility] Anesthesia Checklist - Structural Data Admitted From: Home Planned Operative Procedure/s: lap btl, d/c hyst, novasure,myosure Consent for Planned Operative Procedure(s) Verified: Yes - Additional verifications Anesthesia Reactions: No Hx Blood Transfusions: No Blood Transfusion Reaction: No - Airway Assessment C-Spine Mobility Assessed: Yes TMJ Mobility Assessed: Yes Dentition: Good Dentition - Neurological Assessment Level of Consciousness: Awake, Alert, Appropriate - Anesthesia Plan Anesthesia Risk discussed: Yes Anesthesia Plan: Verified ASA Class: II Anesthesia Type: General [facility] History I have reviewed the patient's past medical history: Yes Medical History: Reports:: Anxiety, Depression, Heart Murmur, Hypertension, Migraine Denies:: Cancer, Diabetes Mellitus Type 1, Diabetes Mellitus Type 2, Internal Pacemaker, MRSA, Seizures *Have you ever received a pneumonia vaccine?: No *Have you received a flu vaccine this season?: No Other Medical History: Reports: Arthritis. Denies: Blood Transfusion Reaction Anesthesia experience/problems:: none Other Surgeries: Yes: Cholecystectomy, Other (facial sx as child). No: , Pacemaker Amputation: No Fractures: Yes (NOSE) - *Social History Educational Level: Attended College Smoking Status: Current every day smoker Tobacco Type: cigarettes # Packs/Day (cigarettes): 1 Alcohol Intake: never Alcohol Intake Frequency:: holidays/special occasions only Substance Use Type: former substance user, marijuana, painkillers, crack/cocaine *Occupational Status:: unemployed Housing: apartment Household Members: significant other *Travel in the last 8 weeks: None - Psychiatric History Pschychiatric History:: Reports:: Anxiety, Depression Family Hx:: No significant family history, Cancer, Diabetes, Heart Attack, Tuberculosis, Stroke, Kidney Disease, Hypertension, Hyperlipidemia 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
--- NOTE | 2019-09-13 14:24 | HMH.ANESI ---
[facility] Anesthesia Record Part I Intake, IV Amount: 1,500 Estimated blood loss (mL): 0 Urine output (mL): 3,001 Blood Pressure: 121/83 SaO2: 95 Pulse Rate: 84 Respiratory Rate: 12 Temperature: 98.8 F Patient is:: Awake, Stable Stable to PACU at:: 14:15
--- NOTE | 2019-09-13 14:36 | HMH.OPNOTE ---
Date of procedure: 09/27/19 Pre-op Diagnosis:: 1. Undesired fertility 2. Heavy menstrual bleeding 3. Severe dysmenorrhea Post-op Diagnosis:: 1. Undesired fertility 2. Heavy menstrual bleeding 3. Severe dysmenorrhea Procedure performed:: 1. D & C Hysteroscopy with Novasure endometrial ablation 2. Laparoscopic tubal ligation Surgeon:: Ashwini Miguel MD EMERGENCY TECHNICIAN:: Roverto Ward Anesthesia: GETA Estimated blood loss (mL): 10 Operative findings:: grossly normal uterus, fallopian tubes and ovaries grossly normal uterine cavity Operative note:: The patient was taken to the operating room and general anesthesia was administered. She was prepped/draped in lithotomy position. A uterine manipulator was placed without difficulty. Gloves were changed and attention was turned to the abdomen. A 5mm skin incision was made in the umbilical fold and the Verees needle was inserted through the peritoneum and into the abdominal cavity in standard fashion. The abdomen was insufflated with CO2 gas. A 5mm non-bladed trocar was inserted directly into the abdominal cavity and appropriate placement was confirmed with the laparoscope. No intra-abdominal injuries occurred during entry into the abdominal cavity, as confirmed visually with the laparoscope. The patient was placed in trendelenburg and a 8mm skin incision was made 2cm above the pubic symphysis. A 8mm non-bladed trocar was inserted under direct visualization, without complication. The uterus was elevated out of the pelvis in order to better visualize the anatomy. A survey of the pelvis and abdomen revealed the findings noted above. The uterus was angled towards the patient right and the left fallopian tube was grasped with a natividad and Filshie clip was placed across the entire width of the tube. A second Filshie clip was placed across the left tube. The uterus was then angled towards the patient left, and the right fallopian tube was grasped with a natividad and Filshie clip was placed across the entire width of the tube. A second Filshie clip was placed across the right tube. The uterine manipulator was removed. The abdomen was then evacuated of gas and all trocars removed. The skin incisions were closed with Dermabond. The anterior lip of the cervix was grasped with a single tooth tenaculum and the cervix was dilated with Francisco dilators of serially increasing size until the external os was able to accomodate the Myosure hysteroscope. The hysteroscope was advanced through the cervix and into the uterine cavity, which was distended with LR. Once the uterus was sufficiently distended, the cavity was evaluated and revealed no polyps or fibroids. The hysterosteroscope was then removed and sharp curettage was performed. The specimen was sent for pathology. The uterine cavity sounded to a length of 6cm. The Novasure was inserted through the cervix and expanded to fit the width of the uterus, with a width of 3.4cm. After a successful cavity assessment, the device was deployed and the endometrial ablation was completed in 78 seconds. Once the device had turned off, the Novasure was removed from the uterus and the hysteroscope was reinserted into the uterine cavity. The cavity appeared diffusely cauterized. The hysteroscope was removed from the uterus and all instruments removed from the vagina. The tenaculum site was hemostatic. All sponge/lap/needle/instrument counts correct x2. Total EBL: 10cc. The patient was taken out of lithotomy position, extubated and taken to the PACU in stable condition. Condition: stable Disposition: PACU Specimens:: endometrial curettings Complications:: none
--- NOTE | 2019-09-13 15:38 | PC.NURSE ---
pt and friend aware of new script at pharmacy for pain meds
--- NOTE | 2019-09-13 17:25 | P.PN_ITS ---
[facility] Anesthesia Record Part II Discharge Time: 14:45 [facility] nurse assessment reviewed?: Yes Patient Condition:: Good Anesthesia Complications:: None Swallowing reflex intact?: Yes Cyanosis?: No Blood Pressure: 149/89 Pulse Rate: 71 Temperature: 98.1 F Mental Status: Alert & Oriented Pain level:: 5 Nausea and/or vomitting:: None Intake, IV Amount: 1,200
== END 2019-09-13 15:36 | disposition home or self-care (01) ==
LOC: OR 09:55
PROVIDERS: PCP Family Medicine; Visit Provider Obstetrics & Gynecology
PROC: (CPT 58563; principal; 2019-09-13 11:30)
DX: Z30.2 Encounter for sterilization (principal); N93.8 Other specified abnormal uterine and vaginal bleeding; N94.6 Dysmenorrhea, unspecified; Z88.5 Allergy status to narcotic agent; Z72.0 Tobacco use; F12.11 Cannabis abuse, in remission; F14.11 Cocaine abuse, in remission; F11.11 Opioid abuse, in remission; Z83.3 Family history of diabetes mellitus; Z82.49 Family history of ischemic heart disease and other diseases of the circulatory system; Z83.438 Family history of other disorder of lipoprotein metabolism and other lipidemia; Z84.1 Family history of disorders of kidney and ureter; Z80.9 Family history of malignant neoplasm, unspecified
CPT/HCPCS: 58563; 58670; 96374; J2405

== ENCOUNTER 2020-06-10 19:25 | Emergency (ER) | payer MEDICAID, SELFPAY ==
[2020-06-10 19:28] VITALS: BP 178/95; PULSE 79; RESP 14; TEMP 37.5; O2SAT 98; BMI 34.1
--- NOTE | 2020-06-10 19:48 | CT_ITS ---
PROCEDURE: CT ABDOMEN PELVIS W CON CLINICAL INDICATION: RLQ psin Right lower quadrant pain COMPARISON: CT ABDPELW/O CT ABD PELVIS W/O CONTRAST from 08/03/2016 TECHNIQUE: IV Contrast: 75ML Isovue 370 Oral Contrast None Axial images obtained with sagittal and coronal reformats. All CT scans at the facility use one or more dose reduction, viz: automated exposure control, ma/kV adjustment per patient size (including targeted exams where dose is matched to indication, i.e. head), or iterative reconstruction technique. FINDINGS: LOWER THORAX: Atelectasis right middle lobe and left lower lobe laterally. ABDOMEN & PELVIS: Prior cholecystectomy. Borderline splenomegaly at 13 cm. Small hiatal hernia. The liver, pancreas, adrenal glands, and kidneys have an unremarkable appearance. No renal or ureteral calculi. No evidence of appendicitis. No intestinal obstruction or free air. There is a 3.5 x 2 cm right ovarian cyst. There are small bilateral fat containing inguinal hernias. There are bilateral tubal ligation clips. No acute bony findings. IMPRESSION: 1. No evidence of appendicitis or obstructing ureteral calculus. 2. 3.5 cm right ovarian cyst Dictated by: Demarco Baca MD 06/11/2020 05:38 Demarco Baca MD in OV 06/11/2020 05:38
[2020-06-10 19:57] LABS: Microscopic, Urine URINE MICROSCOPIC (MICROSCOPIC)
[2020-06-10 19:58] LABS: Basophils # 0.1 K/mm3 (0-0.2); Basophils % 0.5 % (0.1-2.0); Eosinophils # 0.2 K/mm3 (0.0-0.4); Eosinophils % 1.8 % (0.1-12.0); Hematocrit 39.9 % (37.0-47.0); Hemoglobin 13.3 g/dL (12.2-16.2); Lymphocytes # 4.8 K/mm3 (0.7-4.5); Lymphocytes % 38.1 % (10-50); Mean Corpuscular HGB Conc 33.3 g/dL (31.8-35.4); Mean Corpuscular Hemoglobin 30.3 pg (27.0-31.2); Mean Platelet Volume 8.8 fl (7.4-10.4); Monocytes # 0.5 K/mm3 (0.1-1.0); Monocytes % 4.2 % (1.7-9.3); Neutrophils # 6.9 K/mm3 (1.8-7.8); Neutrophils % 55.3 % (37.0-80.0); Platelet Count 266 K/mm3 (142-424); Red Blood Count 4.38 M/mm3 (4.20-5.40); Red Cell Distribution Width 13.1 % (11.5-17.5); White Blood Count 12.5 K/mm3 (4.8-10.8)
[2020-06-10 19:59] LABS: Appearance,Urine CLEAR (Clear); Bilirubin,Urine Negative (Negative); Blood, Urine Negative (Negative); Color,Urine YELLOW (Yellow); Glucose,Urine (UA) Negative (Negative); Ketones,Urine Negative (Negative); Leukocyte Esterase,Urine Negative (Negative); Nitrate,Urine Negative (Negative); Protein,Urine Negative (Negative); Specific Gravity, Urine >= 1.030 (1.005-1.030); Urobilinogen,Urine 0.2 EU/dl (0.2)
[2020-06-10 20:06] LABS: Alanine Aminotransferase 20 U/L (12-78); Albumin Level 4.5 g/dl (3.5-5.0); Albumin/Globulin Ratio 1.5 (1.1-1.8); Alkaline Phosphatase 80 U/L (38-126); Amylase 51 U/L (30-110); Anion Gap 11.9 mEq/L (5-15); Aspartate Amino Transferase 21 U/L (14-36); Bilirubin,Total 0.2 mg/dl (0.2-1.3); Blood Urea Nitrogen 16 mg/dl (7-17); Calcium 9.7 mg/dl (8.4-10.2); Carbon Dioxide 24 mmol/L (22.0-30.0); Chloride 108 mmol/L (98-107); Creatinine Clearance Estimated 117 mL/min (50-200); Estimated Glomerular Filt Rate 64 ml/min (>60); GFR (African American) 77 ML/MIN (>60); Glucose 105 mg/dl (74-100); Lipase 43 U/L (23-300); Potassium 3.9 mmoL/L (3.5-5.1); Sodium 140 mmol/L (136-145); Total Protein,Serum 7.5 g/dl (6.3-8.2)
[2020-06-10 20:07] LABS: Bacteria,Urine 1+ /lpf
--- NOTE | 2020-06-10 20:15 | HMH.EDNVD ---
ED Disposition Clinical Impression: Sphincter of Oddi dysfunction Abdominal pain Qualifiers: Abdominal location: right upper quadrant Qualified Code(s): R10.11 - Right upper quadrant pain Ovarian cyst Qualifiers: Laterality: right Qualified Code(s): N83.201 - Unspecified ovarian cyst, right side Disposition: Home, Self-Care Condition on Discharge: Good Instructions: DI for Acute Abdominal Pain Additional Instructions: see pcp for follow up and see dr lockhart Referrals: Trish Gold PA [Primary Care Provider] - Frank Lockhart MD [Staff Physician] - - Critical Care Critical Care Time: No Attestation: On 06/10/20, the high probability of a clinically significant, sudden or life threatening deterioration of the following system(s) required my full and direct attention, intervention and personal management. The time I documented below is in addition to time spent performing reported procedures but includes the following listed in this critical care notation. Medical Decision Making - Medical Records Medical records reviewed: Yes: I reviewed the patient's medical records. - Trace Inquiry Pt receiving controlled substance: No Vital Signs: 06/10/20 19:28 06/10/20 20:28 06/10/20 20:53 Temperature 99.5 F Temperature Source Oral Pulse Rate [Right] 79 68 Respiratory Rate 14 Blood Pressure [Right Arm] 178/95 H 170/85 H 175/95 H Blood Pressure Mean [Right Arm] 122 113 121 Blood Pressure Source [Right Arm] Manual Cuff/ Auscultation 02 Sat by Pulse Oximetry 98 97 - Lab Data Lab results reviewed: Yes: I reviewed the patient's lab results. Lab Results 06/10/20 19:50: Urine Color Yellow, Urine Appearance Clear, Urine pH 6.0, Ur Specific [place] >= 1.030, Urine Protein Negative, Urine Glucose (UA) Negative, Urine Ketones Negative, Urine Blood Negative, Urine Nitrate Negative, Urine Bilirubin Negative, Urine Urobilinogen 0.2, Ur Leukocyte Esterase Negative, Urine RBC None, Urine WBC 3-5, Ur Squamous Epith Cells 10-20, Urine Bacteria 1+ 06/10/20 19:50: WBC 12.5 H, RBC 4.38, Hgb 13.3, Hct 39.9, MCV 91.0, MCH 30.3, MCHC 33.3, RDW 13.1, Plt Count 266, MPV 8.8, Neut % (Auto) 55.3, Lymph % (Auto) 38.1, Harper % (Auto) 4.2, Eos % (Auto) 1.8, Baso % (Auto) 0.5, Neut # (Auto) 6.9, Lymph # (Auto) 4.8 H, Harper # (Auto) 0.5, Eos # (Auto) 0.2, Baso # (Auto) 0.1, ESR 15 06/10/20 19:50: Sodium 140, Potassium 3.9, Chloride 108 H, Carbon Dioxide 24, Anion Gap 11.9, BUN 16, Creatinine 1.00, Estimated Creat Clear 117, Estimated GFR 64, Est GFR ( Amer) 77, Glucose 105 H, Calcium 9.7, Total Bilirubin 0.2, AST 21, ALT 20, Alkaline Phosphatase 80, C-Reactive Protein 1.0, Total Protein 7.5, Albumin 4.5, Globulin 3.0, Albumin/Globulin Ratio 1.5, Amylase 51, Lipase 43, Procalcitonin 0.042 Result diagrams: 06/10/20 19:50 06/10/20 19:50 Orders (Tests/Meds): ED MEDICATIONS Generic Name Dose Route Start Last Admin Trade Name Freq PRN Reason Stop Dose Admin Sodium Chloride 1,000 mls @ 999 mls/hr 06/10/20 20:00 06/10/20 20:06 Sod Chlor 0.9% 1000ml Bag IV 06/10/20 21:00 999 mls/hr .Q1H1M ANITA Administration Sodium Chloride 8 ml 06/10/20 19:52 Sodium Chloride 0.9% 10ml Vial IV 07/10/20 19:51 NEEDED PRN dilute pepcid Discontinued Medications Generic Name Dose Route Start Last Admin Trade Name Freq PRN Reason Stop Dose Admin Famotidine 20 mg 06/10/20 19:52 06/10/20 20:06 Famotidine 20mg/2ml Vial IV 06/10/20 19:53 20 mg ONCE ONE Administration Iopamidol 75 ml 06/10/20 20:15 06/10/20 20:16 Iopamidol-370 (76%);100ml Bottle IV 06/10/20 20:16 75 ml ONCE ONE Administration Ketorolac Tromethamine 30 mg 06/10/20 19:52 06/10/20 20:06 Ketorolac 30mg/Ml Vial IV 06/10/20 19:53 30 mg ONCE ONE Administration Metoclopramide HCl 10 mg 06/10/20 19:52 06/10/20 20:06 Metoclopramide Hcl 10mg/2ml Vial IVP 06/10/20 19:53 10 mg ONCE ONE Administration
[2020-06-10 20:25] LABS: Procalcitonin 0.042 ng/mL (0.0-2.0)
[2020-06-10 20:28] VITALS: BP 170/85
[2020-06-10 20:30] LABS: Erythrocyte Sedimentation Rate 15 mm/hr (0-20)
[2020-06-10 20:53] VITALS: BP 175/95; PULSE 68; O2SAT 97
[2020-06-10 21:53] VITALS: BP 167/87; PULSE 85; RESP 14; TEMP 37.1; O2SAT 98
== END 2020-06-10 23:09 | disposition home or self-care (01) ==
PROVIDERS: Emergency Medicine; Emergency Provider Family Medicine; PCP Physician Assistant
DX: K83.4 Spasm of sphincter of Oddi (principal); N83.201 Unspecified ovarian cyst, right side; I10 Essential (primary) hypertension; F17.210 Nicotine dependence, cigarettes, uncomplicated; F41.8 Other specified anxiety disorders; Z79.899 Other long term (current) drug therapy; Z88.5 Allergy status to narcotic agent
CPT/HCPCS: 74177; 80053; 81001; 82150; 83690; 84145; 85025; 85651; 86140; 96365; 96375; 99283; J2405; Q9967

== ENCOUNTER → 2020-08-02 08:21 | Outpatient (CLI) | payer MEDICAID, SELFPAY ==
[2020-08-02 08:54] LABS: Basophils # 0.1 K/mm3 (0-0.2); Basophils % 0.9 % (0.1-2.0); Eosinophils # 0.5 K/mm3 (0.0-0.4); Eosinophils % 3.8 % (0.1-12.0); Hematocrit 44.5 % (37.0-47.0); Hemoglobin 15.1 g/dL (12.2-16.2); Lymphocytes # 4.3 K/mm3 (0.7-4.5); Lymphocytes % 34.8 % (10-50); Mean Corpuscular HGB Conc 33.9 g/dL (31.8-35.4); Mean Corpuscular Volume 88.6 fl (81-99); Mean Platelet Volume 8.6 fl (7.4-10.4); Monocytes # 0.6 K/mm3 (0.1-1.0); Neutrophils # 6.9 K/mm3 (1.8-7.8); Neutrophils % 55.5 % (37.0-80.0); Platelet Count 339 K/mm3 (142-424); Red Blood Count 5.02 M/mm3 (4.20-5.40); Red Cell Distribution Width 12.6 % (11.5-17.5); White Blood Count 12.4 K/mm3 (4.8-10.8)
== END ==
PROVIDERS: PCP Physician Assistant; Visit Provider Obstetrics & Gynecology
DX: Z01.812 Encounter for preprocedural laboratory examination (principal); Z11.52 Encounter for screening for COVID-19; R10.2 Pelvic and perineal pain; N99.85 Post endometrial ablation syndrome
CPT/HCPCS: 36415; 85025; U0003

== ENCOUNTER → 2020-09-09 08:35 | Outpatient (CLI) | payer MEDICAID, SELFPAY ==
--- NOTE | 2020-09-09 08:41 | MR_ITS ---
PROCEDURE: MR ABDOMEN WO CON CLINICAL INDICATION: Pt c/o ruq pain x3yrs with n/v/d. COMPARISON: CT CT ABDOMEN PELVIS W CON from 06/10/2020 TECHNIQUE: Routine multiplanar multi echo sequences are performed without gadolinium enhancement. MRCP sequences also performed FINDINGS: The the liver, spleen, adrenal glands, a pancreas, and kidneys have an unremarkable appearance. There has been a prior cholecystectomy. No biliary dilatation or biliary stricture. The pancreatic duct is normal in caliber. No obvious upper abdominal mass. IMPRESSION: Unremarkable MRI of the abdomen Dictated by: Demarco Baca MD 09/11/2020 12:25 Demarco Baca MD in [place] 09/11/2020 12:25
[2020-09-09 10:59] LABS: Basophils # 0.1 K/mm3 (0-0.2); Basophils % 0.4 % (0.1-2.0); Eosinophils # 0.3 K/mm3 (0.0-0.4); Eosinophils % 2.6 % (0.1-12.0); Hematocrit 40.8 % (37.0-47.0); Hemoglobin 13.8 g/dL (12.2-16.2); Lymphocytes # 3.5 K/mm3 (0.7-4.5); Lymphocytes % 31.3 % (10-50); Mean Corpuscular HGB Conc 33.8 g/dL (31.8-35.4); Mean Corpuscular Hemoglobin 30.2 pg (27.0-31.2); Mean Corpuscular Volume 89.3 fl (81-99); Mean Platelet Volume 8.8 fl (7.4-10.4); Monocytes # 0.5 K/mm3 (0.1-1.0); Monocytes % 4.4 % (1.7-9.3); Neutrophils # 6.7 K/mm3 (1.8-7.8); Neutrophils % 61.2 % (37.0-80.0); Platelet Count 268 K/mm3 (142-424); Red Blood Count 4.57 M/mm3 (4.20-5.40); Red Cell Distribution Width 12.6 % (11.5-17.5)
[2020-09-09 11:25] LABS: Chloride 108 mmol/L (98-107); Potassium 4.4 mmoL/L (3.5-5.1); Sodium 140 mmol/L (136-145)
[2020-09-09 11:28] LABS: Alanine Aminotransferase 34 U/L (12-78); Alkaline Phosphatase 119 U/L (38-126); Amylase 50 U/L (30-110); Anion Gap 14.4 mEq/L (5-15); Aspartate Amino Transferase 28 U/L (14-36); Bilirubin,Total 0.3 mg/dl (0.2-1.3); Blood Urea Nitrogen 10 mg/dl (7-17); Calcium 9.5 mg/dl (8.4-10.2); Carbon Dioxide 22 mmol/L (22.0-30.0); Estimated Glomerular Filt Rate 96 ml/min (>60); GFR (African American) 117 ML/MIN (>60); Glucose 91 mg/dl (74-100); Lipase 47 U/L (23-300)
[2020-09-09 11:29] LABS: Albumin Level 4.7 g/dl (3.5-5.0); Albumin/Globulin Ratio 1.8 (1.1-1.8); Globulin 2.6 g/dL (1.3-3.2); Total Protein,Serum 7.3 g/dl (6.3-8.2)
[2020-09-11 04:14] LABS: Deamidated Gliadin Abs, IgA 6 units (0-19); Deamidated Gliadin Abs, IgG 2 units (0-19); Endomysial IgA Antibody Negative (Negative); Tissue Transglutaminase IgA Ab <2 U/mL (0-3); Tissue Transglutaminase IgG Ab 2 U/mL (0-5)
[2020-09-11 11:07] LABS: Reticulin IgA Antibody Negative titer (Neg:<1:2.5)
[2020-09-11 12:46] LABS: Saccharomyces cerevisiae, IgA <20.0 Units (0.0-24.9); Saccharomyces cerevisiae, IgG <20.0 Units (0.0-24.9)
== END ==
PROVIDERS: PCP Physician Assistant; Visit Provider Nurse Practitioner Family
DX: R10.11 Right upper quadrant pain (principal); R14.0 Abdominal distension (gaseous); R19.7 Diarrhea, unspecified; R11.0 Nausea; R15.2 Fecal urgency
CPT/HCPCS: 36415; 74181; 76376; 80053; 82150; 83516; 83690; 85025; 86255; 86256; 86671

== ENCOUNTER 2020-09-11 13:33 | Emergency (ER) | payer MEDICAID, SELFPAY ==
[2020-09-11 13:35] VITALS: BP 123/68; PULSE 67; RESP 21; TEMP 36.8; O2SAT 98; BMI 34.9
[2020-09-11 13:40] VITALS: BMI 36.0
--- NOTE | 2020-09-11 13:41 | XR_ITS ---
PROCEDURE: XR FOOT LT MIN 3V CLINICAL INDICATION: TWISTED COMPARISON: No exams were available for comparison FINDINGS: No fracture or dislocation. No lytic or blastic change. There is normal mineralization. The joint spaces are well-preserved. No significant degenerative/arthritic changes. No erosive changes evident. Other findings:None. IMPRESSION: No acute findings. Dictated by: Dr. Theo Elias MD 09/11/2020 14:37 Dr. Theo Elias MD in [place] 09/11/2020 14:37
--- NOTE | 2020-09-11 13:41 | XR_ITS ---
PROCEDURE: XR ANKLE LT MIN 3V CLINICAL INDICATION: TWISTED COMPARISON: No exams were available for comparison FINDINGS: There is no significant soft tissue swelling. The medial and lateral malleolus appear intact and the ankle mortise appears normal. There is a faint tiny bone fragment adjacent to the tip of the medial malleolus but this has smooth borders and this probably is due to old tiny avulsion chip fracture. IMPRESSION: Negative for acute fracture Dictated by: Dr. Theo Elias MD 09/11/2020 14:37 Dr. Theo Elias MD in [place] 09/11/2020 14:37
--- NOTE | 2020-09-11 14:01 | HMH.EDUTC ---
[facility] [place] Disposition Clinical Impression: Ankle sprain Qualifiers: Encounter type: initial encounter Involved ligament of ankle: unspecified ligament Laterality: left Qualified Code(s): S93.402A - Sprain of unspecified ligament of left ankle, initial encounter Foot sprain Qualifiers: Encounter type: initial encounter Laterality: left Qualified Code(s): S93.602A - Unspecified sprain of left foot, initial encounter Disposition: Home, Self-Care Condition on Discharge: Good Instructions: How To Perform RICE (Rest, Ice, Compress, Elevate), How to Apply an Binu Wrap Additional Instructions: *weight bearing as tolerated *RICE, Rest the extremity, Ice 15-20 minutes 3-4 times daily, Compress- wear the binu wrap as discussed as much as possible to help reduce swelling and pain, Elevate the extremity when at rest *Binu wrap is for support and help control swelling, use it except in the shower. Be sure that is not to tight but not to loose either *Elevate when resting *Ibuprofen every 6-8 hours as needed for pain an inflammation. If need something more can take Tylenol in between doses of Ibuprofen to help Immediately follow up with your family doctor for new or worsening of symptoms, or no noticeable improvement over the next 3-5 days Return if needed Referrals: Trish Gold PA [Primary Care Provider] - As needed Time of Disposition: 14:47 Medical Decision Making - Trace Inquiry Pt receiving controlled substance: No Trace was queried for this patient: No Vital Signs: 09/11/20 13:35 Temperature 98.3 F Temperature Source Oral Pulse Rate [Left Brachial] 67 Respiratory Rate 21 Blood Pressure [Left Arm] 123/68 Blood Pressure Mean [Left Arm] 86 Blood Pressure Source [Left Arm] Automatic Cuff Blood Pressure Position [Left Arm] Sitting 02 Sat by Pulse Oximetry 98 Oxygen Delivery Method Room Air - Radiology Data #1 Image(s): Ankle Image Reviewed: Yes I have reviewed radiologist's interpretation IMPRESSION: Negative for acute fracture #2 Image(s): Foot/Toes Image Reviewed: Yes I have reviewed radiologist's interpretation IMPRESSION: No acute findings. [facility] HPI - General Stated complaint: Left foot; tripped & twisted foot Time Seen by Provider: 09/11/20 14:01 Mode of Arrival: Ambulatory Source of Information: Patient Limitations: No Limitations Description of Symptoms (Recalled from Triage Doc. by RN): PATIENT C/O PAIN TO LEFT ANKLE AND OUTER LEFT FOOT AFTER SHE TWISTED IT LAST NIGHT APPROX 2230 HEENT Symptoms (Recalled from RN notes): No Resp Symptoms (Recalled from RN notes): No Skin Symptoms (Recalled from RN notes): No MS Symptoms (Recalled from RN notes): Yes Functional Status (Recalled from RN notes): WNL - History of Present Illness Provider Complaint: Patient state that she was at a friends house when she tripped over hole in back yard and twisted her left foot States that since then she has been having pain around her ankle area, top of foot and side of foot below her little toe State that today it looked swollen so she came in to get it checked - Related Data Home Medications Medication Instructions Recorded Confirmed sumatriptan 20 mg/actuation nasal 20 mg INTRANASAL Q2H PRN 09/10/19 07/28/20 spray Dicyclomine HCl 20 mg PO QID 07/28/20 07/28/20 Fluoxetine HCl [Prozac] 20 mg PO DAILY 07/28/20 07/28/20 lisinopriL [Prinivil 20mg Tablet] 20 mg PO DAILY 07/28/20 07/28/20 Previous Rx's Medication Instructions Recorded naproxen 500 mg tablet 500 mg PO BID PRN #60 tab 05/27/20 ondansetron HCl 4 mg tablet 4 mg PO Q8H PRN #14 tab 06/17/20 oxycodone-acetaminophen 5 mg-325 1 tab PO Q8H PRN #12 tab 06/17/20 mg tablet buspirone 30 mg tablet 30 mg PO BID #60 tab 08/20/20 cariprazine 1.5 mg capsule 1.5 mg PO DAILY #30 cap 08/20/20 fluoxetine 40 mg capsule 40 mg PO DAILY #30 cap 08/20/20 mirtazapine 15 mg tablet 15 mg PO QHS #30 tab 08/20/20 tizanidine 4 mg tablet See Rx Instructio
[2020-09-11 14:45] VITALS: BP 123/68; PULSE 67; RESP 21; TEMP 36.8; O2SAT 98
== END 2020-09-11 14:52 | disposition home or self-care (01) ==
PROVIDERS: Emergency Provider Nurse Practitioner; PCP Physician Assistant
DX: S93.402A Sprain of unspecified ligament of left ankle, initial encounter (principal); S93.602A Unspecified sprain of left foot, initial encounter; X50.1XXA Overexertion from prolonged static or awkward postures, initial encounter; Y92.017 Garden or yard in single-family (private) house as the place of occurrence of the external cause; I10 Essential (primary) hypertension; F41.8 Other specified anxiety disorders; F17.210 Nicotine dependence, cigarettes, uncomplicated; Z88.5 Allergy status to narcotic agent
CPT/HCPCS: 73610; 73630; 99202; G0463

== ENCOUNTER 2020-12-10 17:04 | Emergency (ER) | payer MEDICAID, SELFPAY ==
--- NOTE | 2020-12-10 19:18 | PC.NURSE ---
PT IS NOT HERE AT TIME HER NAME WAS CALLED.
[2020-12-10 21:15] VITALS: BP 0/0; PULSE 0; RESP 0; TEMP -17.7; TEMP 0; O2SAT 0
== END 2020-12-10 21:16 | disposition home or self-care (01) ==
LOC: UTC 17:06
PROVIDERS: Emergency Provider Nurse Practitioner; PCP Physician Assistant
DX: Z53.21 Procedure and treatment not carried out due to patient leaving prior to being seen by health care provider (principal)

== ENCOUNTER 2022-04-15 16:55 | Emergency (ER) | payer MEDICAID, SELFPAY ==
[2022-04-15 18:13] LABS: UTC Influenza A Antigen Negative (Negative); UTC Influenza B Antigen Negative (Negative)
[2022-04-15 18:20] VITALS: BP 139/100; PULSE 87; RESP 16; TEMP 36.7; O2SAT 98; BMI 29.9
--- NOTE | 2022-04-15 18:47 | EXP.UTC ---
Discharge Plan Disposition Patient Disposition: Home, Self-Care Condition: Good Prescriptions Prescriptions: New azithromycin [Zithromax Z-Jimmy] 250 mg tablet See Rx Instructions .ROUTE .COMPLEX 5 Days Qty: 6 0RF Rx Instructions: For 250 mg dose pack: take 500 mg today (day 1), then 250 mg for 4 days (days 2-5) prednisone [prednisone] 20 mg tablet 20 mg PO BID 5 Days Qty: 10 0RF guaifenesin [Mucinex] 600 mg tablet extended release 12hr 600 mg PO BID PRN (Reason: cough) Qty: 20 0RF No Action sumatriptan [Imitrex] 20 mg/actuation spray,non-aerosol 20 mg INTRANASAL Q2H PRN (Reason: migraine headache) Rx Instructions: administer into one nostril as a single dose; if 2nd dose needed,administer into other nostril after at least 2 hrs, NTE 2 doses (40 mg) per episode fluoxetine 40 mg capsule 80 mg PO DAILY Qty: 60 1RF hydroxyzine pamoate [Vistaril] 25 mg capsule 25 mg PO TID PRN (Reason: for increased anxiety) Qty: 90 1RF Vraylar 3 mg capsule 3 mg PO DAILY Qty: 30 1RF mirtazapine [Remeron] 30 mg tablet 30 mg PO QHS Qty: 30 1RF lisinopril 20 mg tablet See Rx Instructions .ROUTE .COMPLEX Qty: 90 0RF Dose Instruction: Take 1 tablet by mouth once daily Rx Instructions: Take 1 tablet by mouth once daily dicyclomine 20 mg tablet See Rx Instructions .ROUTE .COMPLEX Qty: 360 0RF Dose Instruction: Take 1 tablet by mouth 4 times daily Rx Instructions: Take 1 tablet by mouth 4 times daily tizanidine 4 mg tablet See Rx Instructions .ROUTE .COMPLEX Qty: 270 0RF Dose Instruction: TAKE 1 TABLET BY MOUTH EVERY 8 HOURS Rx Instructions: TAKE 1 TABLET BY MOUTH EVERY 8 HOURS Referrals Follow up/Referrals: Trish Gold PA [Primary Care Provider] - See instructions Activity Restrictions/Add. Instructions Additional Instructions/Restrictions: *Monitor Temp, Over the counter Motrin or Tylenol as directed/as needed Tylenol every 4 hours and Motrin every 6 hours (as long as your family doctor has told you that you can take it) for fever or pain. and straight to ER if unable to lower temp less than 101.0 after medication given *Warm salt water gargles may help to soothe the throat *Throat Lozenges? *Warm fluids like tea with honey may help to soothe the throat? *Sleep elevated *Humidifier/Vaporizer Follow up IMMEDIATELY for new or worsening symptoms or no Noticeable improvement over the next 48-72 hours. 911 for difficulty breathing or swallowing Clinical Impressions Clinical Impression: Sinusitis, Bronchitis Stand Alone Forms Stand Alone Forms: Work/School Release Instructions Patient Instructions: Sinusitis, Acute Bronchitis, DI for Sinusitis Discharge ED Provider: Leana Rowe [facility] [place] General Stated complaint: cough, sore throat, congestion, h/a Mode of Arrival: Ambulatory Source of Information: Patient Limitations: No Limitations Time Seen by Provider: 04/15/22 18:47 Description of Symptoms (Recalled from Triage Doc. by RN): pt comes in with c/o headache, chills, dizziness, congestion, cough. symptoms ongoing for 10 days HEENT Symptoms (Recalled from RN notes): Yes Resp Symptoms (Recalled from RN notes): Yes Skin Symptoms (Recalled from RN notes): No MS Symptoms (Recalled from RN notes): No Functional Status (Recalled from RN notes): n/a History of Present Illness Provider Complaint: Patient states that she has been having sinus congestion and pressure, headache, chills, cough and feeling achy all over States that she has been sick for about 10 days and still not feeling any better States that she has been taking OTC medications but not helped much Related Data Home Medications Medication Instructions Recorded Confirmed sumatriptan 20 mg/actuation nasal 20 mg intranasal Q2H PRN migraine 09/10/19 02/18/21 spray (Imitrex) headache Previous Rx's Medication Instructio
[2022-04-15 19:18] VITALS: BP 139/100; PULSE 87; RESP 16; TEMP 36.7
== END 2022-04-15 19:21 | disposition home or self-care (01) ==
PROVIDERS: Emergency Provider Nurse Practitioner; PCP Physician Assistant
DX: J40 Bronchitis, not specified as acute or chronic (principal); J32.9 Chronic sinusitis, unspecified
CPT/HCPCS: 87804; 96372; 99212; G0463; J0696

== ENCOUNTER → 2022-07-22 15:08 | Outpatient (CLI) | payer MEDICAID, SELFPAY ==
--- NOTE | 2022-07-22 15:08 | US_ITS ---
FINAL REPORT CLINICAL HISTORY: Pelvic Pain FINDINGS: Transvaginal sonographic images of the pelvis were obtained. The uterus measures 8.8 x 6.1 x 4.9 cm. The endometrium measures 8 mm, which is within normal limits. The myometrium is homogeneous. The right ovary measures 3.7 cm in length and left ovary measures 2.9 cm in length. Normal blood flow seen to the ovaries. Small follicles are present in both ovaries. There is no evidence of free fluid. IMPRESSION: No acute abnormality identified. Reviewed, Interpreted and Dictated by Brennen Landa MD Transcribed by Phoebe Flores Authenticated and [facility]
== END ==
PROVIDERS: PCP Physician Assistant; Visit Provider Obstetrics & Gynecology
DX: R10.2 Pelvic and perineal pain (principal)
CPT/HCPCS: 76830

== ENCOUNTER 2022-11-18 18:12 | Emergency (ER) | payer MEDICAID, SELFPAY ==
--- NOTE | 2022-11-18 18:19 | XR_ITS ---
PROCEDURE INFORMATION: Exam: XR Left Wrist Exam date and time: 11/18/2022 6:15 PM Age: 36 years old Clinical indication: Pain; Wrist; Left; Prior surgery; Surgery date: 6+ months; Surgery type: Orif; Additional info: [place] a pop while moving a dresser TECHNIQUE: Imaging protocol: Radiologic exam of the left wrist. Views: 3 or more views. COMPARISON: No relevant prior studies available. FINDINGS: Bones/joints: Post-operative changes of prior distal left radial ORIF with plate and screws. Hardware appears intact. No perihardware fracture or lucency to suggest loosening. No evidence of acute fracture or malalignment. Carpal arcs are well-maintained. Soft tissues: Unremarkable. IMPRESSION: 1. No evidence of acute osseous abnormality in the left wrist. 2. ORIF of distal left radius with no evidence of hardware malfunction/failure.
[2022-11-18 18:25] VITALS: BP 147/86; PULSE 76; RESP 18; TEMP 37; O2SAT 99; BMI 29.9
--- NOTE | 2022-11-18 18:56 | EXP.UTC ---
Discharge Plan Disposition Patient Disposition: Home, Self-Care Condition: Good Prescriptions Prescriptions: No Action dicyclomine 20 mg tablet 20 mg PO TID Qty: 90 2RF budesonide-formoterol [Symbicort] 160-4.5 mcg/actuation HFA aerosol inhaler 1 puff inhalation QID PRN (Reason: shortness of breath or wheezing) 90 Days Qty: 10.2 3RF nicotine 14 mg/24 hr patch 24 hour 1 patch transdermal DAILY Qty: 28 2RF lisinopril 10 mg tablet 10 mg PO DAILY Qty: 30 2RF Vraylar 1.5 mg capsule 1.5 mg PO DAILY Qty: 30 1RF hydroxyzine pamoate [Vistaril] 25 mg capsule 25 mg PO TID PRN (Reason: for increased anxiety) Qty: 90 0RF Referrals Follow up/Referrals: Ronny Trejo MD [Primary Care Provider] - See instructions Activity Restrictions/Add. Instructions Additional Instructions/Restrictions: *RICE, Rest the extremity, Ice 15-20 minutes 3-4 times daily, Compress- wear the kory wrap as discussed as much as possible to help reduce swelling and pain, Elevate the extremity when at rest *Velcro wrist splint is for support and help control swelling, use it except in the shower. Be sure that is not to tight but not to loose either *Elevate when resting? *Ibuprofen 600-800mg every 6-8 hours as needed for pain an inflammation. If need something more can take Tylenol in between doses of Ibuprofen to help Clinical Impressions Clinical Impression: Left wrist sprain Qualifiers: Encounter type: initial encounter Qualified Code(s): S63.502A - Unspecified sprain of left wrist, initial encounter Instructions Patient Instructions: Wrist Sprain, DI for Wrist Sprain Discharge ED Provider: Leana Rowe [facility] [place] HPI General Stated complaint: AO 11/18@1800 Left wost Mode of Arrival: Ambulatory Source of Information: Patient Limitations: No Limitations Time Seen by Provider: 11/18/22 18:56 Description of Symptoms (Recalled from Triage Doc. by RN): PATIENT C/O LEFT WRIST PAIN. SHE STATES SHE WAS HELPING MOVE A DRESSER AND FELT HER WRIST POP. REPORTS A PREVIOUS FRACTURE IN SAME WRIST HEENT Symptoms (Recalled from RN notes): No Resp Symptoms (Recalled from RN notes): No Skin Symptoms (Recalled from RN notes): No MS Symptoms (Recalled from RN notes): Yes Functional Status (Recalled from RN notes): WNL History of Present Illness Provider Complaint: Patient states that she has had previous fracture in her left wrist States that she was moving a dresser and felt a pop in her left wrist and has been having pain and swelling on and off ever since and pain with movement so she came in to get checked Related Data Previous Rx's Medication Instructions Recorded dicyclomine 20 mg tablet 20 mg PO TID #90 tabs 07/05/22 lisinopril 10 mg tablet 10 mg PO DAILY #30 tabs 10/04/22 cariprazine 1.5 mg capsule 1.5 mg PO DAILY #30 caps 10/19/22 (Vraylar) hydroxyzine pamoate 25 mg capsule 25 mg PO TID PRN for increased 11/01/22 (Vistaril) anxiety #90 caps budesonide-formoterol HFA 160 1 puff inhalation QID PRN 11/03/22 mcg-4.5 mcg/actuation aerosol shortness of breath or wheezing 90 inhaler (Symbicort) days #10.2 grams nicotine 14 mg/24 hr daily 1 patch transdermal DAILY #28 ea 11/03/22 transdermal patch Allergies Allergy/AdvReac Type Severity Reaction Status Date / Time Latex, Natural Rubber Allergy Mild Rash Verified 11/03/22 15:32 hydrocodone [HYDROCODONE] Allergy Unknown SOB Verified 11/03/22 15:32 Worker's Comp Is this a Worker's Comp case?: No [facility] Disclaimer: The information contained in this section may have been updated after the patient was seen, as this information can be updated by other users. Medical History Asthma Bipolar 1 disorder, mixed, moderate Dyspnea on exertion Family history of asthma GERD (gastroesophageal reflux disease) History of asthma Hypertension Smoking greater than 20 pack years Surgical History History of endometrial a
[2022-11-18 19:07] VITALS: BP 147/86; PULSE 76; RESP 18; TEMP 37; O2SAT 99
== END 2022-11-18 19:10 | disposition home or self-care (01) ==
PROVIDERS: Emergency Provider Nurse Practitioner; PCP Emergency Medicine
DX: S63.502A Unspecified sprain of left wrist, initial encounter (principal); F17.210 Nicotine dependence, cigarettes, uncomplicated; K21.9 Gastro-esophageal reflux disease without esophagitis; J45.909 Unspecified asthma, uncomplicated; I10 Essential (primary) hypertension; F31.62 Bipolar disorder, current episode mixed, moderate; X50.0XXA Overexertion from strenuous movement or load, initial encounter
CPT/HCPCS: 73110; 99212; 99214; G0463

== ENCOUNTER 2022-12-13 17:44 | Emergency (ER) | payer MEDICAID, SELFPAY ==
[2022-12-13 18:05] VITALS: BP 142/97; PULSE 109; RESP 19; TEMP 37.2; O2SAT 98; BMI 30.6
[2022-12-13 18:42] VITALS: BP 142/97; PULSE 109; RESP 19; TEMP 37.2; O2SAT 98
--- NOTE | 2022-12-13 18:42 | EXP.UTC ---
Discharge Plan Disposition Patient Disposition: Home, Self-Care Condition: Good Prescriptions Prescriptions: New ondansetron 4 mg tablet,disintegrating 4 mg PO Q8H PRN (Reason: nausea and vomiting) Qty: 10 0RF No Action dicyclomine 20 mg tablet 20 mg PO TID Qty: 90 2RF budesonide-formoterol [Symbicort] 160-4.5 mcg/actuation HFA aerosol inhaler 1 puff inhalation QID PRN (Reason: shortness of breath or wheezing) 90 Days Qty: 10.2 3RF nicotine 14 mg/24 hr patch 24 hour 1 patch transdermal DAILY Qty: 28 2RF lisinopril 10 mg tablet 10 mg PO DAILY Qty: 30 2RF hydroxyzine pamoate [Vistaril] 25 mg capsule 25 mg PO TID PRN (Reason: for increased anxiety) Qty: 90 0RF Vraylar 1.5 mg capsule 1.5 mg PO DAILY Qty: 30 1RF Referrals Follow up/Referrals: Kyra Jones PA [Primary Care Provider] - See instructions Activity Restrictions/Add. Instructions Additional Instructions/Restrictions: *Monitor Temp, Over the counter Motrin or Tylenol as directed/as needed Tylenol every 4 hours and Motrin every 6 hours (as long as your family doctor has told you that you can take it) for fever or pain. and straight to ER if unable to lower temp less than 101.0 after medication given *Warm salt water gargles may help to soothe the throat *Throat Lozenges? *Warm fluids like tea with honey may help to soothe the throat? *Sleep elevated *Humidifier/Vaporizer Make sure to drink plenty of fluids Over the counter Sudafed may help with nasal congestion Follow up IMMEDIATELY for new or worsening symptoms or no Noticeable improvement over the next 48-72 hours. 911 for difficulty breathing or swallowing You were tested for today for Upper Respiratory Panel with COVID19 your test result should be back in the next 24-48 hours, you may check your results on the [facility] Portal Clinical Impressions Clinical Impression: Viral syndrome Instructions Patient Instructions: DI for Viral Syndrome, DI for Vomiting -- Adult Discharge ED Provider: Leana Rowe [facility] [place] General Stated complaint: Covid exposed [place] Vomiting Abd Pain Runny nose Mode of Arrival: Ambulatory Source of Information: Patient Limitations: No Limitations Time Seen by Provider: 12/13/22 18:25 Description of Symptoms (Recalled from Triage Doc. by RN): PATIETN C/O BODY ACHES, NAUSEA, CHILLS AND SOA X 2 DAYS. RECENTLY EXPOSED TO COVID HEENT Symptoms (Recalled from RN notes): No Resp Symptoms (Recalled from RN notes): No Skin Symptoms (Recalled from RN notes): No MS Symptoms (Recalled from RN notes): No Functional Status (Recalled from RN notes): WNL History of Present Illness Provider Complaint: Patient states that she was recently around someone with COVID and thinks she may have it now too State that she has been having fever, chills, body aches, nasal congestion and not able to breath out of her nose States that yesterday she started having vomiting wanting to get tested for COVID Related Data Previous Rx's Medication Instructions Recorded dicyclomine 20 mg tablet 20 mg PO TID #90 tabs 07/05/22 lisinopril 10 mg tablet 10 mg PO DAILY #30 tabs 10/04/22 budesonide-formoterol HFA 160 1 puff inhalation QID PRN 11/03/22 mcg-4.5 mcg/actuation aerosol shortness of breath or wheezing 90 inhaler (Symbicort) days #10.2 grams nicotine 14 mg/24 hr daily 1 patch transdermal DAILY #28 ea 11/03/22 transdermal patch hydroxyzine pamoate 25 mg capsule 25 mg PO TID PRN for increased 11/28/22 (Vistaril) anxiety #90 caps cariprazine 1.5 mg capsule 1.5 mg PO DAILY #30 caps 12/08/22 (Vraylar) ondansetron 4 mg disintegrating 4 mg PO Q8H PRN nausea and 12/13/22 tablet vomiting #10 tabs Allergies Allergy/AdvReac Type Severity Reaction Status Date / Time Latex, Natural Rubber Allergy Mild Rash Verified 11/03/22 15:32 hydrocodone [HYDROCODONE] Allergy Unknown SOB Verified 11/03/22 15:32 Worker's Comp Is this a
== END 2022-12-13 18:45 | disposition home or self-care (01) ==
PROVIDERS: Emergency Provider Nurse Practitioner; PCP Student in an Organized Health Care Education/Training Program
DX: U07.1 COVID-19 (principal); R50.9 Fever, unspecified; R11.2 Nausea with vomiting, unspecified; F17.210 Nicotine dependence, cigarettes, uncomplicated; J45.909 Unspecified asthma, uncomplicated; K21.9 Gastro-esophageal reflux disease without esophagitis; I10 Essential (primary) hypertension; F31.9 Bipolar disorder, unspecified
CPT/HCPCS: 99212; 99214; G0463

== ENCOUNTER → 2023-01-13 07:58 | Outpatient (CLI) | payer MEDICAID, SELFPAY ==
--- NOTE | 2023-01-13 08:44 | PC.NURSE ---
PFT and 6 Minute Walk Test completed without incident. Albuterol 0.083% given via HHN, per written protocol, Pt tolerated tx well.
== END ==
PROVIDERS: PCP Student in an Organized Health Care Education/Training Program; Visit Provider Internal Medicine Pulmonary Disease
DX: R06.09 Other forms of dyspnea (principal)
CPT/HCPCS: 94060; 94618; 94726; 94729

== ENCOUNTER 2023-02-22 02:53 | Emergency (ER) | payer MEDICAID, SELFPAY ==
[2023-02-22 02:55] VITALS: BP 147/88; PULSE 98; RESP 20; TEMP 36.6; O2SAT 99; BMI 31.8
[2023-02-22 03:09] LABS: Urine Pregnancy, HCG Qual. Negative (Negative)
--- OUTSIDE RECORDS SUMMARY | 2023-02-22 03:14 | XMS_ITS | Continuity of Care Document ---
Author Name Unknown Organization [facility] Address [address] [place] [address] Phone Care Team Providers Care Ranger Aide Name Role Phone Corey Black MD Unavailable Unavailable Procedures Procedure Date Office/outpatient visit,[facility] 2014 Advance Directives Directive Yes / No Effective Date File Name No Information Encounters Encounter Description Practice Location Reason(s) For Visit Diagnoses Date Provider Providers Copied on Encounter Office/outpat ient visit,[facility], [address], [place], [facility], tel:[phone] [facility] hand (chief complaint) No Information 5 Wayne Nicole. [address], [id number] , [place]. tel:[phone] Family History Family Member Type Diagnosis Age At Onset No Information Payers Payer name Insurance type Covered republican ID Rajat wall(s) [facility] [place] [id number] Social History Type Description Quantity Date Captured Comments Alcohol Use Details Unknown Caffeine Use Details Unknown Tobacco Use Status No Information Smoking Status No Information
--- NOTE | 2023-02-22 03:42 | HMH.EDGENADL ---
Discharge Plan Disposition Patient Disposition: Home, Self-Care Prescriptions Prescriptions: No Action dicyclomine 20 mg tablet 20 mg PO TID Qty: 90 2RF budesonide-formoterol [Symbicort] 160-4.5 mcg/actuation HFA aerosol inhaler 1 puff inhalation QID PRN (Reason: shortness of breath or wheezing) 90 Days Qty: 10.2 3RF nicotine 14 mg/24 hr patch 24 hour 1 patch transdermal DAILY Qty: 28 2RF hydroxyzine pamoate [Vistaril] 25 mg capsule 25 mg PO TID PRN (Reason: for increased anxiety) Qty: 90 0RF Vraylar 1.5 mg capsule 1.5 mg PO DAILY Qty: 30 1RF lisinopril 10 mg tablet 10 mg PO DAILY Qty: 30 2RF ondansetron 4 mg tablet,disintegrating 4 mg PO Q8H PRN (Reason: nausea and vomiting) Qty: 10 0RF Referrals Follow up/Referrals: Kyra Jones PA [Primary Care Provider] - See instructions Activity Restrictions/Add. Instructions Additional Instructions/Restrictions: Please call to follow-up with your [employer] as soon as possible. You will at a minimum need to have your beta hCG rechecked in 48 hours. You are at risk for ectopic given your history of tubal ligation. Based on your beta-hCG, it is too early to see anything with ultrasound. If you begin to have vaginal bleeding or abdominal pain, please present immediately to the emergency department as this could be life-threatening if you have a rupture ectopic . Clinical Impressions Clinical Impression: Positive test, of unknown anatomic location Discharge ED Provider: Kaiden Nunez Adult HPI General Chief complaint: Recheck/Abnormal Lab/Rx Stated complaint: Had Tubal 3 yrs ago, now with + test Time Seen by Provider: 02/22/23 03:03 Mode of Arrival: Ambulatory Source of Information: Patient Limitations: No Limitations Description of Symptoms (Recalled from ER Triage Doc. by RN): Patient reports that she had a tubal ligation 3.5 years ago. Last period was January 20. States that she missed her period and has had 2 positive tests at home. Patient reports no pain at this time. Concerned about possible ectopic . History of Present Illness HPI narrative: 37-year-old female, history of 4 prior pregnancies, presents with 2 positive tests at home. She reports she has had no abdominal pain, no vaginal bleeding. She reports that she is 3 days late on her period, last menstrual period began on January 21. Interestingly, she had a tubal ligation about 3 and half years ago with her last . She reports that she has some mild nausea in the mornings as well as breast tenderness, these symptoms are consistent with her prior pregnancies. She reports that she is here for confirmation of test. Related Data Previous Rx's Medication Instructions Recorded dicyclomine 20 mg tablet 20 mg PO TID #90 tabs 07/05/22 budesonide-formoterol HFA 160 1 puff inhalation QID PRN 11/03/22 mcg-4.5 mcg/actuation aerosol shortness of breath or wheezing 90 inhaler (Symbicort) days #10.2 grams nicotine 14 mg/24 hr daily 1 patch transdermal DAILY #28 ea 11/03/22 transdermal patch hydroxyzine pamoate 25 mg capsule 25 mg PO TID PRN for increased 11/28/22 (Vistaril) anxiety #90 caps cariprazine 1.5 mg capsule 1.5 mg PO DAILY #30 caps 12/08/22 (Vraylar) ondansetron 4 mg disintegrating 4 mg PO Q8H PRN nausea and 12/13/22 tablet vomiting #10 tabs lisinopril 10 mg tablet 10 mg PO DAILY #30 tabs 02/20/23 Allergies Allergy/AdvReac Type Severity Reaction Status Date / Time Latex, Natural Rubber Allergy Mild Rash Verified 11/03/22 15:32 hydrocodone [HYDROCODONE] Allergy Unknown SOB Verified 11/03/22 15:32 [facility] Disclaimer: The information contained in this section may have been updated after the patient was seen, as this information can be updated by other users. Medical History Asthma Bipolar 1 disorder, mixed, moderate Dyspnea on exertion Family history of asthm
[2023-02-22 03:56] LABS: HCG,Quantitative 92 mIU/ml (0-5.42)
[2023-02-22 04:17] VITALS: BP 136/78; PULSE 98; RESP 18; TEMP 36.6; O2SAT 98
== END 2023-02-22 04:18 | disposition home or self-care (01) ==
PROVIDERS: Emergency Provider Emergency Medicine; PCP Student in an Organized Health Care Education/Training Program
DX: Z3A.01 Less than 8 weeks gestation of pregnancy; Z98.51 Tubal ligation status; Z32.01 Encounter for pregnancy test, result positive; F17.210 Nicotine dependence, cigarettes, uncomplicated; J45.909 Unspecified asthma, uncomplicated; K21.9 Gastro-esophageal reflux disease without esophagitis; I10 Essential (primary) hypertension; O36.80X0 Pregnancy with inconclusive fetal viability, not applicable or unspecified
CPT/HCPCS: 81025; 84702; 99284

== ENCOUNTER → 2023-02-24 09:38 | Outpatient (CLI) | payer MEDICAID, SELFPAY ==
[2023-02-24 11:29] LABS: HCG,Quantitative 264 mIU/ml (0-5.42)
[2023-02-25 09:17] LABS: Progesterone 11.4 ng/mL (.)
== END ==
PROVIDERS: PCP Student in an Organized Health Care Education/Training Program; Visit Provider Obstetrics & Gynecology
DX: Z32.00 Encounter for pregnancy test, result unknown (principal)
CPT/HCPCS: 36415; 84144; 84702

== ENCOUNTER → 2023-02-27 08:50 | Outpatient (CLI) | payer MEDICAID, SELFPAY ==
--- NOTE | 2023-02-27 08:50 | US_ITS ---
PROCEDURE: US OB <= 14 WEEKS FETUS CLINICAL INDICATION: dates/location COMPARISON: No exams were available for comparison FINDINGS: Transvaginal sonographic images of the pelvis were obtained. From her last menstrual period she is 5weeks 3days. An intrauterine gestational sac is present measuring 3.5 mm. This correlates to a gestational age of 4weeks 6days. heart tones are not yet present. Yolk sac is not seen yet. There is a posterior fibroid measuring 1.3 cm x 1.2 cm x 1.1 cm.. The right ovary is seen and appears normal. There is a corpus luteum in the right ovary. The ovary measures 3.6 cm x 2.3 cm x 2.3 cm. The left ovary is seen and appears normal. It measures 2.2 cm x 12.0 cm x 1.1 cm. There is no fluid in the cul-de-sac. IMPRESSION: 1. Gestational sac seen within the endometrial cavity. The endometrium appears lush. 2. Both ovaries are seen and appear normal. 3. No fluid in the cul-de-sac. Dictated by: Rk Wilson MD 02/27/2023 15:17 Rk Wilson MD in OV 02/27/2023 15:17
== END ==
PROVIDERS: PCP Student in an Organized Health Care Education/Training Program; Visit Provider Obstetrics & Gynecology
DX: O36.80X0 Pregnancy with inconclusive fetal viability, not applicable or unspecified (principal); Z3A.01 Less than 8 weeks gestation of pregnancy
CPT/HCPCS: 76801

== ENCOUNTER → 2023-03-06 14:36 | Outpatient (CLI) | payer MEDICAID, SELFPAY ==
--- NOTE | 2023-03-06 14:39 | US_ITS ---
PROCEDURE: US OB <= 14 WEEKS FETUS CLINICAL INDICATION: dates COMPARISON: US US OB <= 14 WEEKS FETUS from 02/27/2023 FINDINGS: Transvaginal sonographic images of the pelvis were obtained. From her last menstrual period she is 6weeks 3days. An intrauterine gestational sac is present with a pole with a crown-rump length of 0.26cm This correlates to a gestational age of 5weeks 6days. heart tones are present with an FHR of 100bpm. Yolk sac is noted. The yolk sac measures 4.2mm. There is a small posterior fibroid measuring 1.5 cm by 0.8 cm x 1.1 cm. The right ovary is seen and appears normal. A corpus luteum is seen in the right ovary. The left ovary is seen and appears normal. There is no fluid in the cul-de-sac. IMPRESSION: 1. Viable intrauterine gestation currently 5 weeks 6 days. RUTH will be 10/31/2023. 2. There is a small posterior fibroid measuring 1.5 cm. 3. Both ovaries are seen and appear normal. There is a corpus luteum on the right ovary. 4. No fluid in the cul-de-sac. Dictated by: Rk Wilson MD 03/06/2023 16:04 Rk Wilson MD in OV 03/06/2023 16:04
== END ==
PROVIDERS: PCP Student in an Organized Health Care Education/Training Program; Visit Provider Obstetrics & Gynecology
DX: Z34.91 Encounter for supervision of normal pregnancy, unspecified, first trimester (principal); Z3A.01 Less than 8 weeks gestation of pregnancy
CPT/HCPCS: 76801

== ENCOUNTER 2023-03-28 22:15 | Emergency (ER) | payer MEDICAID, SELFPAY ==
[2023-03-28 22:16] VITALS: BP 131/92; PULSE 93; RESP 20; TEMP 36.7; O2SAT 98; BMI 31.4
[2023-03-28 22:45] VITALS: BP 130/83; PULSE 100; O2SAT 98
[2023-03-28 23:01] LABS: Coronavirus 19, PCR Not Detected (NotDetected); Influenza A, PCR Not Detected (NotDetected); Influenza B, PCR Not Detected (NotDetected)
[2023-03-28 23:01] LABS: Microscopic, Urine URINE MICROSCOPIC (MICROSCOPIC)
--- NOTE | 2023-03-28 23:11 | HMH.EDGENADL ---
Discharge Plan Disposition Patient Disposition: Home, Self-Care Prescriptions Prescriptions: New promethazine 25 mg tablet 12.5 mg PO Q8 PRN (Reason: nausea and vomiting) Qty: 30 0RF nitrofurantoin macrocrystal 100 mg capsule 100 mg PO BID 5 Days Qty: 10 0RF Rx Instructions: must administer with a meal/food No Action budesonide-formoterol [Symbicort] 160-4.5 mcg/actuation HFA aerosol inhaler 1 puff inhalation BID 90 Days Qty: 10.2 2RF albuterol sulfate [Ventolin HFA] 90 mcg/actuation HFA aerosol inhaler 2 inh inhalation Q6H PRN (Reason: shortness of breath or wheezing) 90 Days Qty: 18 3RF albuterol sulfate 0.63 mg/3 mL solution for nebulization 0.63 mg inhalation Q6H PRN (Reason: shortness of breath or wheezing) 90 Days Qty: 90 2RF Vraylar 1.5 mg capsule 1.5 mg PO DAILY Qty: 30 1RF PNV [id number] 90 mg iron- 1 mg-200 mg capsule 1 cap PO DAILY promethazine 12.5 mg tablet 12.5 mg PO BID PRN (Reason: nausea and vomiting) Qty: 14 0RF Sleep Aid (doxylamine) 25 mg tablet 25 mg PO HS PRN (Reason: nausea and vomiting) Qty: 30 0RF pyridoxine (vitamin B6) 25 mg tablet 25 mg PO DAILY Qty: 30 0RF labetalol 100 mg tablet 100 mg PO BID Qty: 60 2RF Referrals Follow up/Referrals: Kyra Jones PA [Primary Care Provider] - See instructions Activity Restrictions/Add. Instructions Additional Instructions/Restrictions: Please take Macrobid as prescribed for asymptomatic bacteriuria. Please take Phenergan as prescribed for nausea and vomiting. Please follow-up with your primary care provider. Please return to the emergency department if you develop any new or worsening symptoms or become concerned for your health. Clinical Impressions Clinical Impression: Nausea and vomiting during prior to 22 weeks gestation, URI (upper respiratory infection), Asymptomatic bacteriuria during Discharge ED Provider: Kaiden Nunez Adult HPI General Chief complaint: Fever Stated complaint: fever, vomitting Time Seen by Provider: 03/28/23 23:10 Mode of Arrival: Ambulatory Source of Information: Patient Limitations: No Limitations Description of Symptoms (Recalled from ER Triage Doc. by RN): pt states she is 9 weeks and last night started running a fever of 100.7. pt also complains of vomiting. pt has been able to keep fluids down and is no apparent distress. pt sees and has appt tmrw History of Present Illness HPI narrative: 37-year-old female, 9 weeks , history as reported below presents with congestion, nausea vomiting, fever at home. She reports that she has had persistent nausea and vomiting with solid foods, but reports that she is able to keep down liquids. She reports she is not concerned that she is dehydrated. She reports that she has had sinus congestion and malaise over the last couple of days and had a temperature greater than 100 at home recently. Denies any urinary symptoms. Has follow-up with her RN COMPLIANCE tomorrow. Denies any vaginal bleeding or discharge or abdominal pain. Related Data Home Medications Medication Instructions Recorded Confirmed vitamin no.102-iron 90 1 cap PO DAILY 03/10/23 03/27/23 mg-folate 1 mg-dha 200 mg capsule Previous Rx's Medication Instructions Recorded labetalol 100 mg tablet 100 mg PO BID #60 tabs 02/22/23 doxylamine succinate 25 mg tablet 25 mg PO HS PRN nausea and 03/10/23 (Sleep Aid (doxylamine)) vomiting #30 tabs promethazine 12.5 mg tablet 12.5 mg PO BID PRN nausea and 03/10/23 vomiting #14 tabs pyridoxine (vitamin B6) 25 mg 25 mg PO DAILY #30 tabs 03/10/23 tablet albuterol sulfate 0.63 mg/3 mL 0.63 mg (3 mL) inhalation Q6H PRN 03/14/23 solution for nebulization shortness of breath or wheezing 90 days #90 mL albuterol sulfate 90 mcg/actuation 2 inh inhalation Q6H PRN shortness 03/14/23 aerosol inhaler (Ventolin HFA) of breath or wheezing 90 days
[2023-03-28 23:23] LABS: Appearance,Urine CLEAR (Clear); Bilirubin,Urine Negative (Negative); Blood, Urine Negative (Negative); Color,Urine YELLOW (Yellow); Glucose,Urine (UA) Negative (Negative); Ketones,Urine Negative (Negative); Leukocyte Esterase,Urine Negative (Negative); Nitrate,Urine Negative (Negative); Protein,Urine Negative (Negative); Urobilinogen,Urine 0.2 EU/dl (0.2)
[2023-03-28 23:32] LABS: Strep Scrn Group A (Rapid) Negative (Negative)
[2023-03-28 23:52] LABS: Bacteria,Urine Trace /lpf; Sperm,Urine OCC /lpf; WBC,Urine Occasional #/hpf (0-3)
[2023-03-29 00:16] VITALS: BP 135/80; PULSE 70; RESP 20; TEMP 36.7; O2SAT 97
== END 2023-03-29 00:19 | disposition home or self-care (01) ==
PROVIDERS: Emergency Medicine; Emergency Provider Emergency Medicine; PCP Student in an Organized Health Care Education/Training Program
DX: O21.9 Vomiting of pregnancy, unspecified (principal); O23.31 Infections of other parts of urinary tract in pregnancy, first trimester; O99.511 Diseases of the respiratory system complicating pregnancy, first trimester; J06.9 Acute upper respiratory infection, unspecified; Z3A.09 9 weeks gestation of pregnancy; O99.331 Smoking (tobacco) complicating pregnancy, first trimester; F17.210 Nicotine dependence, cigarettes, uncomplicated
CPT/HCPCS: 81001; 87430; 87636; 99284

== ENCOUNTER → 2023-03-29 10:19 | Outpatient (CLI) | payer MEDICAID, SELFPAY ==
[2023-04-03 09:00] LABS: Neisseria gonorrhoeae, NAA Negative (Negative)
== END ==
PROVIDERS: PCP Student in an Organized Health Care Education/Training Program; Visit Provider Obstetrics & Gynecology
DX: Z34.91 Encounter for supervision of normal pregnancy, unspecified, first trimester (principal); Z3A.09 9 weeks gestation of pregnancy
CPT/HCPCS: 87086; 87491; 87591